=== PATIENT | male | born 1975 | race Caucasian/White ===

== ENCOUNTER 2022-01-24 11:44 | Emergency (ER) | payer BC ==
--- OUTSIDE RECORDS SUMMARY | 2022-01-24 11:48 | XMS REPORT | Continuity of Care Document ---
:1975 Author Organization [facility] t Address [address] [place] [address] Care Team Providers Name Role Phone Nessa SULTANA, Valentino Easley Primary Care Physician YOANA GILLESPIE Attending Clinician Unavailable NANCY TAYLOR Attending Clinician Unavailable Tee SULTANA, Jerman Lisa Attending Clinician MD NANCY TAYLOR Attending Clinician UnavailZARINA Cosby Attending Clinician Unavailable ZARINA REYES Attending Clinician Unavailable Skyler Palafox MD Attending Clinician Zarina Reyes DO Attending Clinician DEISY WOO Attending Clinician Unavailable Doctor Unassigned, [place] Attending Clinician Unavailable Ramez SULTANA, Priscilla G Attending Clinician IZZY REYES Attending Clinician Unavailable Jonn Zamora MD Attending Clinician Cam Nagel MD Attending Clinician Irving Luna MD Attending Clinician Abigail Aparicio DO Attending Clinician Rebecca Epps Attending Clinician Андрей Dimas Attending Clinician ELLIS BLEDSOE Attending Clinician Unavailable [facility] Attending Clinician Unavailable Ellis Artis Attending Clinician NANCY TAYLOR Admitting Clinician Unavailable MD NANCY TAYLOR Admitting Clinician Unavailjason Nagel MD, Cam Oconnor Admitting Clinician Payers Payer Name Policy Type Policy Number Effective Date Expiration Date S eloisa [facility] [place] [id number] 2016 00:00:00 Problems Condition Condition Condition Status Onset Resolution Last Treating Co mments Source Name Details Category Date Date Treatment Clinician Date Pulmonary Pulmonary Disease Active Uni vers embolism embolism 02-01 ity of 00:00: [place] 00 Medical Branch Obesity Obesity Disease Active Univers (BMI (BMI 8 ity of 30-39.9) 30-39.9) 00:00: Medical Branch Deep vein Deep vein Disease Active Uni vers blood clot blood clot 02-01 it y of of right of right 00:00: [place] lower lower 00 Medical extremity extremity Bran ch No known No known Disease Metho di active active st problems problems Hospit a l Allergies, Adverse Reactions, Alerts Allergy Allergy Status Severity Reaction(s) Onset Inactive Treating Comm ents Source Name Type Date Date Clinician Hydrocod Propensi Active Other (See Patient Anastasia sweeney one ty to Comments) [address] adverse 00:00: does not Hospita reaction 00 like how l s to it makes drug him feel. He gets real hot and "feels real bad" Tree Propensi Active Hives Univers Nuts ty to 823 ity of adverse 00:00: [place] reaction 00 Medical s Branch TREE Food Active Hives Univers NUTS 02-01 ity of 00:00: [place] 00 Medical Branch NO KNOWN Drug Active Univers ALLERGIE Class ity of S [facility] Family History Family Member Diagnosis Comments Start Date Stop Date Source Natural father CABG/Stent [facility] Natural father Diabetes [facility] Natural father Hy[facility] Natural mother Bradycardia [facility] Social History Social Habit Start Date Stop Date Quantity Comments Source History of Snuff User [facility] Exposure to Not sure [facility] SARS-CoV-2 Hospital (event) Alcohol intake 2021-07-22 2021-07-22 Current drinker [facility] dist 00:00:00 00:00:00 of alcohol Hospital (finding) Tobacco use and 2021-07-21 2021-07-21 User of smokeless [facility] exposure 00:00:00 00:00:00 tobacco Hospital History [facility] 2020-02-02 2020-02-02 5 University o f Alcohol Frequency 00:00:00 00:00:00 [place] M edical Branch History [facility] 2020-02-02 2020-02-02 1 [place] o f Alcohol Std 00:00:00 00:00:00 [place] Medical Drinks Branch History [facility] 2020-02-02 2020-02-02 99 [place] o f Alcohol Binge 00:00:00 00:00:00 [place] Medic al Branch Sex Ass[birth year] At [birth year] [facility] 00:[facility] Smoking Status Start Date Stop Date Source Never smoked tobacco [facility] Medications Ordered Filled Start Stop Current Ordering Indication Dosage Frequency Signature Comments Components Source Medication Medication Date Date Medication? Clinician (SIG) Name Name esomeprazol Yes 40mg QD Take 40 mg [facility] (NexIUM) 2-[address] 40 MG 13:05: daily Hospita capsule 59 before l breakfast. fluticasone Yes 1{spray Q24H 1 spray by [facility] propionate 2-10 } Each Nare st (FLONASE) 13:05: route Hospita 50 59 daily as l mcg/actuati needed for on nasal rhinitis spray or allergies. montelukast Yes 10mg QD Take 10 mg [facility] (SINGULAIR) 2-[address] 10 mg 13:05: nightly. Hospita tablet 59 l indomethaci Yes 25mg Q.5D Take 25 mg [facility] n (INDOCIN) 2-[address] 25 MG 13:05: (two) Hospita capsule 59 times a l day with meals. aspirin Yes 81mg QD Take 1 [facility] (ECOTRIN) 2-10 tablet (81 st 81 MG 13:05: mg total) Hospita enteric 59 by mouth l coated daily. tablet valsartan-h Yes 1{tbl} QD Take 1 [facility] ydrochlorot 2-[address] hiazide 00:00: mouth Hospita (DIOVAN-HCT 00 daily. l ) 320-25 mg Hold for per tablet sbp less than 110 etodolac 2021- No etodolac Meth asuncion (LODINE) 07-[address] 500 MG 15:10: 00:00 tablet Hospita tablet 54 :00 l amLODIPine 2021- No amlodipine [facility] (NORVASC) 5 07-[address] mg tablet 09:57: 00:00 tablet Hospi ta 45 :00 l amLODIPine Yes 7.5mg QD Take 1.5 Me [facility]odi (NORVASC) 5 - tablets st mg tablet 00:00: (7.5 mg Hospi ta 00 total) by l mouth daily. nitroglycer 2022- No 1 under Me thodi in 07-[address] (NITROSTAT) 00:00: 05:59 as needed Hospita 0.4 MG SL 00 :00 for l tablet angina, may repeat q5mins for up three doses omeprazole 2021- No Method i (PriLOSEC) 07-14 st 40 MG 00:00: 00:00 Hospita capsule 00 :00 l Ozempic 2020-06 Yes .5mg Q7D Inject 0.5 Meth asuncion 0.25 mg or 2-[address] 0.5 mg(2 00:00: the skin Hospi ta mg/1.5 mL) 00 once a l subcutane week. s pen Every Monday valsartan-h 2020-06- No Metho di ydrochlorot 07-25 st hiazide 00:00: 00:00 Hospita (DIOVAN-HCT 00 :00 l ) 320-25 mg per tablet metFORMIN 2020-06 Yes 500mg Q.5D 500 mg 2 Met hodi XR 2- (two) st (GLUCOPHAGE 00:00: times a Hos dori -XR) 500 mg 00 day. l 24 hr tablet metoprolol 2020-06 Yes 100mg QD Take 100 Me thodi succinate 1-[address] XL 00:00: mouth Hospita (TOPROL-XL) 00 nightly. l 100 mg 24 hr tablet furosemide 2020-06 Yes PRN [facility] (LASIX) 20 1-15 st mg tablet 00:00: Hospita 00 l iohexol 0 2020- No 100mL 100 mL, Unive rs (OMNIPAQUE 413 04-13 Intravenou it y of 350 01:45: 01:28 s, ONCE, 1 [place] BULK-100 00 :00 dose, Mon Medica l mL) 09/21/20 at Branch injection 2045, 100 mL Routine allopurinoL 2019-06 Yes 300mg Take 300 U nivers 300 mg 0-12 mg by ity of tablet 00:00: mouth [place] 00 daily. Medical Branch allopurinoL 2019-06 Yes 300mg Take 300 U nivers 300 mg 0-12 mg by ity of tablet 00:00: mouth [place] 00 daily. Medical Branch allopurinoL 2019-06 Yes 300mg Take 300 U nivers 300 mg 0-12 mg by ity of tablet 00:00: mouth [place] 00 daily. Medical Branch allopurinoL 2019-06 Yes 300mg Take 300 U nivers 300 mg 0-12 mg by ity of tablet 00:00: mouth [place] 00 daily. Medical Branch allopurinoL 2019-06 Yes 300mg QD Take 300 M ethodi (ZYLOPRIM) 0-[address] 300 MG 00:00: mouth Hospita tablet 00 daily. l valsartan-h Yes valsartan U nivers ydrochlorot 8-24 160 ity of hiazide 01:42: mg[place]hydroch [place] 160-25 mg 42 lor[place] Medi thomas per tablet de 25 mg Branc h tablet amLODIPine Yes amlodipine U nivers 5 mg tablet 8-24 5 mg ity of 01:42: tablet [place] 42 Medical Branch DM/p-ephed/ Yes Take by Uni vers acetaminoph 8-24 mouth. ity of /doxylam 01:42: [place] (NYQUIL 42 Medical ORAL) Branch [facility] mouth[facility] ity of (METFORMIN 01:42: [place] ORAL) 42 Medical Branch valsartan-h Yes valsartan U nivers ydrochlorot 8-24 160 ity of hiazide 01:42: mg-hydroch [place] 160-25 mg 42 [place] Medi thomas per tablet de 25 mg Branc h tablet amLODIPine 2019-0 Yes amlodipine U nivers 5 mg tablet 8-24 5 mg ity of 01:42: tablet [address] Branch DM/p-ephed/ 2020-0 Yes Take by Uni vers acetaminoph 8-24 mouth. ity of /doxylam 01:42: [place] ([place] [address] Medical ORAL) [place] metformin 2019-0 Yes Take by Unive rs HCl 8-24 mouth. ity of (METFORMIN 01:42: [place] ORAL) Medical Branch valsartan-h 2020-0 Yes valsartan U nivers ydrochlorot 8-24 160 ity of hiazide 01:42: mg-hydroch [place] 160-25 mg 42 [place] Medi thomas per tablet de 25 mg Branc h tablet amLODIPine 2020-0 Yes amlodipine U nivers 5 mg tablet 8-24 5 mg ity of 01:42: tablet [address] Branch DM/p-ephed/ 2020-0 Yes Take by Uni vers acetaminoph 8-24 mouth. ity of /doxylam 01:42: [place] ([address] ORAL) [place] metformin 2019-0 Yes Take by Unive rs HCl 8-24 mouth. ity of (METFORMIN 01:42: [facility]) Medical Branch valsartan-h 2020-0 Yes valsartan U nivers ydrochlorot 8-24 160 ity of hiazide 01:42: mg-hydroch [place] 160-25 mg 42 [place] Medi thomas per tablet de 25 mg Branc h tablet amLODIPine 2020-0 Yes amlodipine U nivers 5 mg tablet 8-24 5 mg ity of 01:42: tablet [address] Branch DM/p-ephed/ 2020-0 Yes Take by Uni vers acetaminoph 8-24 mouth. ity of /doxylam 01:42: [place] ([address] ORAL) [place] metformin 2019-0 Yes Take by Unive rs HCl 8-24 mouth. ity of (METFORMIN 01:42: [place] ORAL) Medical Branch valsartan-h 2020-0 Yes valsartan U nivers ydrochlorot 8-24 160 ity of hiazide 01:42: mg-hydroch [place] 160-25 mg 42 [place] Medi thomas per tablet de 25 mg Branc h tablet amLODIPine 2020-0 Yes amlodipine U nivers 5 mg tablet 8-24 5 mg ity of 01:42: tablet [address] Branch DM/p-ephed/ 2020-0 Yes Take by Uni vers acetaminoph 8-24 mouth. ity of /doxylam 01:42: [place] ([address] ORAL) [place] metformin 2020-0 Yes Take by Unive rs HCl 8-24 mouth. ity of (METFORMIN 01:42: [place] ORAL) Medical Branch valsartan-h 2020-0 Yes valsartan U nivers ydrochlorot 8-24 160 ity of hiazide 01:42: mg-hydroch [place] 160-25 mg 42 [place] Medi thomas per tablet de 25 mg Branc h tablet amLODIPine 2020-0 Yes amlodipine U nivers 5 mg tablet 8-24 5 mg ity of 01:42: tablet [address] Branch DM/p-ephed/ 2020-0 Yes Take by Uni vers acetaminoph 8-24 mouth. ity of /doxylam 01:42: [place] ([address] ORAL) [place] metformin 2019-0 Yes Take by Unive rs HCl 8-24 mouth. ity of (METFORMIN 01:42: [place] ORAL) Medical Branch valsartan-h 2020-0 Yes valsartan U nivers ydrochlorot 8-24 160 ity of hiazide 01:42: mg-hydroch [place] 160-25 mg 42 [place] Medi thomas per tablet de 25 mg Branc h tablet amLODIPine 2020-0 Yes amlodipine U nivers 5 mg tablet 8-24 5 mg ity of 01:42: tablet [address] Branch DM/p-ephed/ 2020-0 Yes Take by Uni vers acetaminoph 8-24 mouth. ity of /doxylam 01:42: [place] ([address] ORAL) [place] metformin 2019-0 Yes Take by Unive rs HCl 8-24 mouth. ity of (METFORMIN 01:42: [place] ORAL) Medical Branch valsartan-h 2020-0 Yes valsartan U nivers ydrochlorot 8-24 160 ity of hiazide 01:42: mg-hydroch [place] 160-25 mg 42 [place] Medi thomas per tablet de 25 mg Branc h tablet amLODIPine 2020-0 Yes amlodipine U nivers 5 mg tablet 8-24 5 mg ity of 01:42: tablet [place] [address] Medical Branch DM/p-ephed/ 2020-0 Yes Take by Uni vers acetaminoph 8-24 mouth. ity of /doxylam 01:42: [place] ([place] [address] Medical ORAL) Branch metformin 2020-0 Yes Take by Unive rs HCl 8-24 mouth. ity of (METFORMIN 01:42: [place] ORAL) Medical Branch valsartan-h 2020-0 Yes valsartan U nivers ydrochlorot 8-24 160 ity of hiazide 01:42: mg-hydroch [place] 160-25 mg 42 [place] Medi thomas per tablet de 25 mg Branc h tablet amLODIPine 2020-0 Yes amlodipine U nivers 5 mg tablet 8-24 5 mg ity of 01:42: tablet [place] [address] Medical Branch DM/p-ephed/ 2020-0 Yes Take by Uni vers acetaminoph 8-24 mouth. ity of /doxylam 01:42: [place] ([place] [address] Medical ORAL) Branch metformin 2019-0 Yes Take by Unive rs HCl 8-24 mouth. ity of (METFORMIN 01:42: [place] ORAL) [address] [place] [address] Branch valsartan-h 2020-0 Yes valsartan U nivers ydrochlorot 8-24 160 ity of hiazide 01:42: mg-hydroch [place] 160-25 mg 42 [place] Medi thomas per tablet de 25 mg Branc h tablet amLODIPine 2020-0 Yes amlodipine U nivers 5 mg tablet 8-24 5 mg ity of 01:42: tablet [address] Branch DM/p-ephed/ 2020-0 Yes Take by Uni vers acetaminoph 8-24 mouth. ity of /doxylam 01:42: [place] ([place] [address] Medical ORAL) Branch metformin 2020-0 Yes Take by Unive rs HCl 8-24 mouth. ity of (METFORMIN 01:42: [place] ORAL) Medical Branch rivaroxaban 2020-0 Yes 15mg 15 mg, Univ ers (XARELTO) 8-24 Oral, BID, ity of tablet 15 01:00: First dose [place] mg 00 (after Medical last Branch modificati on) on 02/02/20 at 2000, Until Discontinu ed, Routine furosemide 2020-0 Yes 10mg 10 mg, Unive rs (LASIX) 02-01 Oral, ity of half tablet 15:00: DAILY, [place] 10 mg 00 First dose Medical on [facility] 02/02/20 at 1000, Until Discontinu ed, Routine rivaroxaban 2019- 2020- No 20mg 20 mg, Uni vers (XARELTO) 02-01 Oral, BID, ity of tablet 20 13:00: 14:59 First dose [place] mg 00 :13 on [facility] 02/02/20 at Branch 0800, Until Discontinu ed, Routine levothyroxi 2019-0 Yes 25ug 25 mcg, Uni vers ne 02-01 Oral, ity of (SYNTHROID) 11:00: QAM-0600, [place] tablet 25 00 First dose Medi thomas mcg on [facility] 02/02/20 at 0600, Until Discontinu ed, Routine iohexol 2019-0 2020- No 120mL 120 mL, Unive rs (OMNIPAQUE 02-01 Intravenou it y of 350 02:45: 02:39 s, ONCE, 1 [place] BULK-100 00 :00 dose, Sat Medica l mL) 02/01/20 at Branch injection 2145, 120 mL Routine sodium 2019-0 Yes 5mL 5 mL, Univers chloride 02-01 Intravenou ity o f (NS) 01:31: s, PRN, [place] injection 5 30 Starting Medi thomas mL [facility] 02/01/20 at 2031, Until Discontinu ed, Routine, IV line flushing furosemide 2019-0 2020- No [id number] 10mg Take 0.5 Univers 20 mg 02-01 tablets by ity of tablet 00:00: 04:59 mouth once [place] 00 :00 daily as Medical needed Branch (Leg swelling) for up to 30 days. furosemide 2020-0 2020- No [id number] 10mg Take 0.5 Univers 20 mg 02-01 tablets by ity of tablet 00:00: 04:59 mouth once [place] 00 :00 daily as Medical needed Branch (Leg swelling) for up to 30 days. furosemide 2020-0 2020- No [id number] 10mg Take 0.5 Univers 20 mg 02-01 tablets by ity of tablet 00:00: 04:59 mouth once [place] 00 :00 daily as Medical needed Branch (Leg swelling) for up to 30 days. furosemide 2019-2019- No [id number] 10mg Take 0.5 Univers 20 mg 02-01 tablets by ity of tablet 00:00: 04:59 mouth once [place] 00 :00 daily as Medical needed Branch (Leg swelling) for up to 30 days. rivaroxaban 2019-2020- No 20mg Take 1 Uni vers (XARELTO) 01-28 tablet by ity of 20 mg 00:00: 05:59 mouth [place] tablet 00 :00 daily for Medical 159 days. Branch Please start after you finish the twice a day dose. Indication s: dvt treatment rivaroxaban 2019-2020- No 20mg Take 1 Uni vers (XARELTO) 01-28 tablet by ity of 20 mg 00:00: 05:59 mouth [place] tablet 00 :00 daily for Medical 159 days. Branch Please start after you finish the twice a day dose. Indication s: dvt treatment rivaroxaban 2019-2020- No 20mg Take 1 Uni vers (XARELTO) 01-28 tablet by ity of 20 mg 00:00: 05:59 mouth [place] tablet 00 :00 daily for Medical 159 days. Branch Please start after you finish the twice a day dose. Indication s: dvt treatment rivaroxaban 2019-2020- No 20mg Take 1 Uni vers (XARELTO) 01-28 tablet by ity of 20 mg 00:00: 05:59 mouth [place] tablet 00 :00 daily for Medical 159 days. Branch Please start after you finish the twice a day dose. Indication s: dvt treatment rivaroxaban 2019-2020- No 20mg Take 1 Uni vers (XARELTO) 01-28 tablet by ity of 20 mg 00:00: 05:59 mouth [place] tablet 00 :00 daily for Medical 159 days. Branch Please start after you finish the twice a day dose. Indication s: dvt treatment rivaroxaban 2019-0 2020- No 20mg Take 1 Uni vers (XARELTO) 01-28 tablet by ity of 20 mg 00:00: 05:59 mouth [place] tablet 00 :00 daily for Medical 159 days. Branch Please start after you finish the twice a day dose. Indication s: dvt treatment rivaroxaban 2019-0 2020- No 20mg Take 1 Uni vers (XARELTO) 01-28 tablet by ity of 20 mg 00:00: 05:59 mouth [place] tablet 00 :00 daily for Medical 159 days. Branch Please start after you finish the twice a day dose. Indication s: dvt treatment rivaroxaban 2020-0 2020- No 20mg Take 1 Uni vers (XARELTO) 01-28 tablet by ity of 20 mg 00:00: 05:59 mouth [place] tablet 00 :00 daily for Medical 159 days. Branch Please start after you finish the twice a day dose. Indication s: dvt treatment rivaroxaban 2020-0 202- No 20mg Take 1 Uni vers (XARELTO) 01-28 tablet by ity of 20 mg 00:00: 05:59 mouth [place] tablet 00 :00 daily for Medical 159 days. Branch Please start after you finish the twice a day dose. Indication s: dvt treatment rivaroxaban 2019- 2020- No 15mg Take 1 Uni vers (XARELTO) 01-28 tablet by ity of 15 mg 00:00: 04:59 mouth 2 [place] tablet 00 :00 (two) Medical times [place] daily for 21 days. Indication s: DVT treatment rivaroxaban 2019-0 2020- No 15mg Take 1 Uni vers (XARELTO) 01-28 tablet by ity of 15 mg 00:00: 04:59 mouth 2 [place] tablet 00 :00 (two) Medical times [place] daily for 21 days. Indication s: DVT treatment rivaroxaban 2019-0 2020- No 15mg Take 1 Uni vers (XARELTO) 01-28 tablet by ity of 15 mg 00:00: 04:59 mouth 2 [place] tablet 00 :00 (two) Medical times [place] daily for 21 days. Indication s: DVT treatment methylpredn 2019- 2020- No 125mg 125 mg, IV Univers isolone sod 12-17 Piggyback, i ty of succ 04:45: 03:59 ONCE, 1 [place] (SOLU-MEDRO 00 :00 dose, Tue Med ical L) 12/17/19 at Branch injection 2345, STAT 125 mg diphenhydrA 2019- 2020- No 25mg 25 mg, Uni vers MINE 12-17 Slow IV ity of (BENADRYL) 04:45: 03:59 Push, [place] injection 00 :00 ONCE, 1 Medical 25 mg dose, Tue Branch 12/17/19 at 2345, STAT iohexol 2020-0 2020- No 120mL 120 mL, Unive rs (OMNIPAQUE 12-17 07-08 Intravenou it y of 350 04:10: 04:10 s, ONCE, 1 [place] BULK-150 00 :00 dose, Tue Medica l mL) 12/17/19 at Branch injection 2330, 120 mL Routine DM/p-ephed/ 2020-0 Yes Take by Uni vers acetaminoph 12-17 mouth. ity of /doxylam 01:28: [place] (NYQUIL 49 Medical ORAL) Branch DM/p-ephed/ 2020-0 Yes Take by Uni vers acetaminoph - mouth. ity of /doxylam 01:28: [place] (NYQUIL 49 Medical ORAL) Branch valsartan-h 2020-0 Yes valsartan U nivers ydrochlorot 12-17 160 ity of hiazide 01:16: mg-hydroch [place] 160-25 mg 02 [place] Medi thomas per tablet de 25 mg Branc h tablet amLODIPine 2020-0 Yes amlodipine U nivers 5 mg tablet 7-08 5 mg ity of 01:16: tablet [address] valsartan-h 2020-0 Yes valsartan U nivers ydrochlorot 12-17 160 ity of hiazide 01:16: mg-hydroch [place] 160-25 mg 02 [place] Medi thomas per tablet de 25 mg Branc h tablet amLODIPine 2020-0 Yes amlodipine U nivers 5 mg tablet 7-08 5 mg ity of 01:16: tablet [place] 02 [facility] Branch valsartan-h 2020-0 Yes valsartan U nivers ydrochlorot 12-14 160 ity of hiazide 18:38: mg-hydroch [place] 160-25 mg 52 [place] Medi thomas per tablet de 25 mg Branc h tablet amLODIPine 2020-0 Yes amlodipine U nivers 5 mg tablet 7-05 5 mg ity of 18:38: tablet [address] valsartan-h 2020-0 Yes valsartan U nivers ydrochlorot 7-05 160 ity of hiazide 18:38: mg-hydroch [place] 160-25 mg 52 [place] Medi thomas per tablet de 25 mg Branc h tablet amLODIPine 2019-0 Yes amlodipine U nivers 5 mg tablet 7-05 5 mg ity of 18:38: tablet [place] [address] Medical Branch ESOMEPRAZOL 2019-0 Yes Univer s E MAGNESIUM 5-20 ity of ORAL 00:00: [place] Medical Branch ESOMEPRAZOL 2019-0 Yes Univer s E MAGNESIUM 5-20 ity of ORAL 00:00: [place] Medical [facility] ESOMEPRAZOL 2019-0 Yes Univer s E MAGNESIUM 5-20 ity of ORAL 00:00: [place] [facility] ESOMEPRAZOL 2019-0 Yes Univer s E MAGNESIUM 5-20 ity of ORAL 00:00: [place] [facility] ESOMEPRAZOL 2019-0 Yes Univer s E MAGNESIUM 5-20 ity of ORAL 00:00: [place] [facility] ESOMEPRAZOL 2019-0 Yes Univer s E MAGNESIUM 5-20 ity of ORAL 00:00: [place] [facility] ESOMEPRAZOL 2019-0 Yes Univer s E MAGNESIUM 5-20 ity of ORAL 00:00: [place] [facility] ESOMEPRAZOL 2019-0 Yes Univer s E MAGNESIUM 5-20 ity of ORAL 00:00: [place] [facility] ESOMEPRAZOL 2019-0 Yes Univer s E MAGNESIUM 5-20 ity of ORAL 00:00: [place] [facility] ESOMEPRAZOL 2019-0 Yes Univer s E MAGNESIUM 5-20 ity of ORAL 00:00: [place] [facility] ESOMEPRAZOL 2019-0 Yes Univer s E MAGNESIUM 5-20 ity of ORAL 00:00: [place] [facility] ESOMEPRAZOL 2019-0 Yes Univer s E MAGNESIUM 5-20 ity of ORAL 00:00: [place] [facility] ESOMEPRAZOL 2019-0 Yes Univer s E MAGNESIUM 5-20 ity of ORAL 00:00: [place] [facility] ESOMEPRAZOL 2019-0 Yes Univer s E MAGNESIUM 5-20 ity of ORAL 00:00: [place] Medical Branch levothyroxi 2019-0 Yes 25ug Take 25 Uni vers ne 25 mcg 4-30 mcg by ity of tablet 00:00: mouth [place] 00 every Medical morning. Branch levothyroxi 2020-0 Yes 25ug Take 25 Uni vers ne 25 mcg 4-30 mcg by ity of tablet 00:00: mouth [place] 00 every Medical morning. Branch levothyroxi 2020-0 Yes 25ug Take 25 Uni vers ne 25 mcg 4-30 mcg by ity of tablet 00:00: mouth [place] 00 every Medical morning. Branch levothyroxi 2020-0 Yes 25ug Take 25 Uni vers ne 25 mcg 4-30 mcg by ity of tablet 00:00: mouth [place] 00 every Medical morning. Branch levothyroxi 2020-0 Yes 25ug Take 25 Uni vers ne 25 mcg 4-30 mcg by ity of tablet 00:00: mouth [place] 00 every Medical morning. Branch levothyroxi 2020-0 Yes 25ug Take 25 Uni vers ne 25 mcg 4-30 mcg by ity of tablet 00:00: mouth [place] 00 every Medical morning. Branch levothyroxi 2020-0 Yes 25ug Take 25 Uni vers ne 25 mcg 4-30 mcg by ity of tablet 00:00: mouth [place] 00 every Medical morning. Branch levothyroxi 2020-0 Yes 25ug Take 25 Uni vers ne 25 mcg 4-30 mcg by ity of tablet 00:00: mouth [place] 00 every Medical morning. Branch levothyroxi 2020-0 Yes 25ug Take 25 Uni vers ne 25 mcg 4-30 mcg by ity of tablet 00:00: mouth [place] 00 every Medical morning. Branch levothyroxi 2020-0 Yes 25ug Take 25 Uni vers ne 25 mcg 4-30 mcg by ity of tablet 00:00: mouth [place] 00 every Medical morning. Branch levothyroxi 2020-0 Yes 25ug Take 25 Uni vers ne 25 mcg 4-30 mcg by ity of tablet 00:00: mouth [place] 00 every Medical morning. Branch levothyroxi 2020-0 Yes 25ug Take 25 Uni vers ne 25 mcg 4-30 mcg by ity of tablet 00:00: mouth [place] 00 every Medical morning. Branch levothyroxi 2020-0 Yes 25ug Take 25 Uni vers ne 25 mcg 4-30 mcg by ity of tablet 00:00: mouth [place] 00 every Medical morning. Branch levothyroxi 2020-0 Yes 25ug Take 25 Uni vers ne 25 mcg 4-30 mcg by ity of tablet 00:00: mouth [place] 00 every Medical morning. Branch levothyroxi Yes 25ug QD Take 25 Met hodi ne 4-[address] (Synthroid) 00:00: mouth Hospi ta 25 mcg 00 every l tablet morning. Immunizations Ordered Filled Immunization Date Status Comments [facility] Immunization Name Name SARS-COV-2 COVID-19 2020-08-11 Completed Unive rsity of PFIZER VACCINE 00:00:00 [facility] SARS-COV-2 COVID-19 2020-08-11 Completed Unive rsity of PFIZER VACCINE 00:00:00 [facility] SARS-COV-2 COVID-19 2020-07-21 Completed Unive rsity of PFIZER VACCINE 00:00:00 [facility] SARS-COV-2 COVID-19 2020-07-21 Completed Unive rsity of PFIZER VACCINE 00:00:00 [facility] Vital Signs Vital Name Observation Time Observation Value Comments Source Systolic blood 2020-09-22 02:00:00 127 mm[Hg] Univer sity of pressure [facility] Diastolic blood 2020-09-22 02:00:00 89 mm[Hg] Unive rsity of [facility] Heart rate 2020-09-22 02:00:00 95 /min [facility] Respiratory rate 2020-09-22 02:00:00 12 /min [facility] Oxygen saturation in 2020-09-22 02:00:00 97 /min [facility] Arterial blood by [facility] Pulse oximetry [place] Body temperature 2020-09-22 00:58:00 37.61 Bere [facility] Body weight 2020-09-22 00:58:00 127.007 [facility] BMI 2020-09-22 00:58:00 35.00 kg/m2 [facility] Systolic blood 2020-03-26 17:43:00 136 mm[Hg] [facility] Diastolic blood 2020-03-26 17:43:00 89 mm[Hg] [facility] Heart rate 2020-03-26 17:43:00 79 /min [facility] Body height 2020-03-26 17:43:00 190.5 cm [facility] Body weight 2020-03-26 17:43:00 136.079 kg [facility] BMI 2020-03-26 17:43:00 37.50 kg/m2 [facility] Oxygen saturation in 2020-03-26 17:43:00 99 /min University of Arterial blood by [facility] Pulse oximetry Branch Systolic blood 2020-03-26 17:43:00 136 mm[Hg] [facility]iver [facility] Diastolic blood 2020-03-26 17:43:00 89 mm[Hg] [facility]ive [facility] Heart rate 2020-03-26 17:43:00 79 /min [facility] Body height 2020-03-26 17:43:00 190.5 cm [facility] Body weight 2020-03-26 17:43:00 136.079 kg [facility] BMI 2020-03-26 17:43:00 37.50 kg/m2 [facility] Oxygen saturation in 2020-03-26 17:43:00 99 /min University of Arterial blood by [facility] Pulse oximetry Branch Systolic blood 2020-02-02 16:47:00 123 mm[Hg] [facility]iver [facility] Diastolic blood 2020-02-02 16:47:00 87 mm[Hg] [facility] Body temperature 2020-02-02 16:47:00 36.33 Bere [facility] Respiratory rate 2020-02-02 16:47:00 18 /min [facility] Oxygen saturation in 2020-02-02 16:47:00 99 /min University of Arterial blood by [facility] Pulse oximetry Branch Heart rate 2020-02-02 13:09:00 73 /min [facility] Body height 2020-02-02 07:25:00 190.5 cm [facility] Body weight 2020-02-02 07:25:00 132.995 kg bedscale [facility] BMI 2020-02-02 07:25:00 36.65 kg/m2 [facility] Systolic blood 2020-01-29 15:24:00 143 mm[Hg] [facility] [place] [facility] Diastolic blood 2020-01-29 15:24:00 97 mm[Hg] [facility]ive [facility] Heart rate 2020-01-29 15:24:00 72 /min [facility] Respiratory rate 2020-01-29 15:24:00 18 /min [facility] [place] [facility] Oxygen saturation in 2020-01-29 15:24:00 98 /min University of Arterial blood by [facility] thomas Pulse oximetry Branch Body temperature 2020-01-29 14:28:00 37.22 Bere [facility] [place] [facility] Body weight 2020-01-29 14:28:00 133.811 kg [facility] [place] [facility] BMI 2020-01-29 14:28:00 36.87 kg/m2 [facility] [place] [facility] Systolic blood 2019-12-18 06:00:00 118 mm[Hg] [facility] [place] [facility] Diastolic blood 2019-12-18 06:00:00 89 mm[Hg] Unive [facility] [place] [facility] Heart rate 2019-12-18 06:00:00 81 /min [facility] [place] [facility] Respiratory rate 2019-12-18 06:00:00 19 /min [facility] [place] [facility] Oxygen saturation in 2019-12-18 06:00:00 92 /min University of Arterial blood by [facility] thomas Pulse oximetry Branch Body temperature 2019-12-18 01:55:47 37.11 Bere [facility] [place] [facility] Body weight 2019-12-18 01:14:00 132.45 kg [facility] [place] [facility] BMI 2019-12-18 01:14:00 36.50 kg/m2 [facility] [place] [facility] Systolic blood 2019-12-15 18:38:00 128 mm[Hg] [facility]iver [facility] [place] [facility] Diastolic blood 2019-12-15 18:38:00 88 mm[Hg] Unive [facility] [place] [facility] Heart rate 2019-12-15 18:38:00 95 /min [facility] [place] [facility] Body temperature 2019-12-15 18:38:00 37.61 Bere [facility] [place] [facility] Respiratory rate 2019-12-15 18:38:00 20 /min [facility] [place] [facility] Body height 2019-12-15 18:38:00 190.5 cm [facility] [place] [facility] Body weight 2019-12-15 18:38:00 131.543 kg [facility] BMI 2019-12-15 18:38:00 36.25 kg/m2 [facility] Oxygen saturation in 2019-12-15 18:38:00 98 /min University Arterial blood by [facility] Pulse oximetry Branch Systolic blood 2021-07-22 17:14:14 132 mm[Hg] [facility] pressure Diastolic blood 2021-07-22 17:14:14 89 mm[Hg] [facility] pressure Heart rate 2021-07-22 17:14:14 72 /min [facility] Body temperature 2021-07-22 17:14:14 35.67 Bere [facility] Respiratory rate 2021-07-22 17:14:14 17 /min [facility] Oxygen saturation in 2021-07-22 17:14:14 99 /min [facility] Arterial blood by Pulse oximetry Body height 2021-07-21 20:34:50 190.5 cm [facility] Body weight 2021-07-21 20:34:50 137.077 kg [facility] BMI 2021-07-21 20:34:50 37.77 kg/m2 [facility] Procedures Procedure Date / Time Performing Clinician Source Performed POC GLUCOSE 2021-07-22 [facility] 17:13:00 Disni CREATINE KINASE, TOTAL 2021-07-22 Freya Stahl [facility] (CPK) 17:09:00 POC GLUCOSE 2021-07-22 [facility] 14:21:00 Disni TROPONIN T 2021-07-22 [facility] 09[facility]22:00 Toi COMPLETE BLD COUNT 2021-07-22 [facility] W/AUTO DIFF 09:22:00 Disni COMPREHENSIVE METABOLIC 2021-07-22 [facility] PANEL 09:22:00 Disni HEMOGLOBIN A1C 2021-07-22 Rolf [facility] 09:22:00 Disni LIPID PANEL 2021-07-22 [facility] 09:22:00 Disni ESTIMATED GFR 2021-07-22 [facility] H ospital 09:22:00 Disni CV LEFT HEART CATH LV 2021-07-22 Jerman Oliveira [facility] GRAM WITH CORS 00:30:00 COVID-19 ANTI-SPIKE IGG 2021-07-21 [facility] ANTIBODY TITER 21:49:00 Disni TROPONIN T 2021-07-21 [facility] 21:49:00 Toi COVID-19 SEROLOGY PATIENT 2021-07-21 [facility] SURVEILLANCE 21:49:00 Disni THYROID STIMULATING 2021-07-21 [facility] HORMONE 21:49:00 Disni COVID-19 QUALITATIVE 2021-07-21 [facility] RT-PCR 18:16:00 Toi PROTHROMBIN TIME WITH INR 2021-07-21 [facility] 18:16:00 Toi PARTIAL THROMBOPLASTIN 2021-07-21 [facility] ([facility]TT[facility] 18:16:00 Toi TYPE AND SCREEN 2021-07-21 [facility] 18:16:00 Toi B NATRIURETIC PEPTIDE 2021-07-21 [facility] 17:56:00 Toi ESTIMATED GFR 2021-07-21 [facility] 17:56:00 Toi HC COMPLETE BLD COUNT 2021-07-21 [facility] W/AUTO DIFF 17:56:00 Toi COMPREHENSIVE METABOLIC 2021-07-21 [facility] PANEL 17:56:00 Toi TROPONIN T 2021-07-21 [facility] 17:56:00 Toi XR CHEST 1 VW 2021-07-21 [facility] 17:55:05 Toi ECG ED PRELIMINARY 2021-07-21 Talia Rouseist Ho spital INTERPRETATION 17:42:45 Toi ECG 12-LEAD 2021-07-21 Magaly Rousefer [facility] 17:33:19 Toi CV TREADMILL STRESS TEST 2021-07-21 Kierra Gillespiematt [facility] 17:06:45 TROPONIN I 2020-09-22 Javy [facility] xa 03:21:[address] [facility] CT CHEST PULMONARY 2020-09-22 Javy [facility] ANGIOGRAM 01:34:29 [facility] XR CHEST 1 VW 2020-09-22 Javy [facility] xas 01:21:32 [facility] NOTICE OF PRIVACY 2020-09-22 Doctor Unassigned, No [facility] PRACTICES 01:20:07 Name Medical Laura LIPASE 2020-09-22 Javy [facility] xa 01:11:00 [facility] TROPONIN I 2020-09-22 Javy [facility] xa 01:11:00 [facility] HEPATIC FUNCTION PANEL 2020-09-22 Javy On license of [facility] ([id number]) (ALB,T.PRO,BILI 01:11:00 [facility] T,BU/BC,ALT,AST,ALK PHOS) BASIC METABOLIC PANEL 2020-09-22 Javy [facility] (NA, K, CL, CO2, GLUCOSE, 01:11:00 Medica l Branch BUN, CREATININE, CA) CBC WITH DIFF 2020-09-22 Javy [facility] 01:11:00 [facility] PROTHROMBIN TIME / INR 2020-09-22 [facility] 01:11:00 [facility] ACTIVATED PARTIAL 2020-09-22 Javy [facility] THRMPLAS MATA 01:11:00 [facility] COVID-19 (ID NOW RAPID 2020-09-22 [facility] TESTING) 01:11:00 [facility] CONSENT/REFUSAL FOR 2020-09-22 Doctor Unassigned, No [facility] DIAGNOSIS AND TREATMENT 00:46:21 [facility] NO SHOW OR MISSED 2020-03-26 Doctor Unassigned, No [facility] APPOINTMENT POLICY 17:35:44 [facility] ACKNOWLEDGEMENT MEDICATION CORRESPONDENCE 2020-02-18 Doctor Unassigned, No [facility] 05:01:00 [facility] AUTHORIZATION FOR RELEASE 2020-02-03 Doctor Unassigned, No [facility] 05:01:00 Name Medical Branch POCT GLUCOSE (AUTOMATED) 2020-02-02 Priscilla Myrick [facility] 10:12:00 Medical Branch UNILATERAL VENOUS DUPLEX 2020-02-02 Jonn Zamora [facility] LOWER EXTREMITY BY 02:57:48 [facility] VASCULAR LAB CT CHEST PULMONARY 2020-02-02 [facility] [place] ANGIOGRAM 02:44:24 [facility] BLOOD CULTURE SCREEN 2020-02-02 Noah [facility] 02:31:00 Medical Branch XR CHEST 1 VW 2020-02-02 Jonn Zamora [facility] 01:48:36 [facility] COVID-19 (ID NOW RAPID 2020-02-02 Noah [facility] TESTING) 01:34:00 Medical Branch LIPASE 2020-02-02 [facility] 01[facility]33[facility]00 [facility] TROPONIN I 2020-02-02 [facility] 01:33[facility]00 [facility] COMP. METABOLIC PANEL 2020-02-02 Jonn Zamora [facility] ([id number]) 01:33:00 Medical Branch CBC WITH DIFF 2020-02-02 Ariannend [facility] 01:33:00 Medical Branch GLYCOSYLATED HEMOGLOBIN 2020-02-02 Juan Parr [facility] (A1C) 01:33:00 Medical Branch PROTHROMBIN TIME / INR 2020-02-02 Jonn Zamora [facility] 01:33:00 Medical Branch ACTIVATED PARTIAL 2020-02-02 Noah Nymaribell [facility] THRMPLAS MATA 01:33:00 Medical Branch N-TERMINAL PRO-BNP 2020-02-02 Priyanka Eliud [facility] 01:33:00 Medical Branch EKG-12 LEAD [facility] 01:32:47 [facility] Branch NOTICE OF PRIVACY 2020-02-02 Doctor Unassigned, No [facility] PRACTICES 01:14:06 Name Medical Branch CONSENT/REFUSAL FOR 2020-02-02 Doctor Unassigned, No [facility] DIAGNOSIS AND TREATMENT 01:13:01 Name Medical Branch NOTICE OF PRIVACY 2020-01-29 Doctor Unassigned, No [facility] PRACTICES 14:14:48 Name Medical Branch CONSENT/REFUSAL FOR 2020-01-29 Doctor Unassigned, No [facility] DIAGNOSIS AND TREATMENT 14:14:[address] CHEST PULMONARY 2019-12-18 Rebecca Vuong [facility] ANGIOGRAM 04:18:16 Medical Branch TROPONIN I 2019-12-18 Rebecca Vuong [facility] xa 03:59:00 Medical Branch XR CHEST 1 VW COVID 2019-12-18 Rebecca Vuong [place] [facility] 02:32:02 Medical Branch LIPASE 2019-12-18 Rebecca Vuong [facility] 01:27:00 Medical Branch TROPONIN I 2019-12-18 Rebecca Vuong [facility] 01:27:00 Medical Branch COMP. METABOLIC PANEL 2019-12-18 Rebecca Vuong [facility] ([id number]) 01:27:00 Medical Branch CBC WITH DIFFERENTIAL 2019-12-18 Rebecca Vuong [facility] 01:27:00 Medical Branch EKG-12 LEAD 2019-12-18 Helen Oreilly [facility] 01:18:23 Medical Branch Plan of Care Planned Activity Planned Date Details Comments Source Future Scheduled 2021-07-22 DIABETES: RETINAL EYE Me [facility] Hospital Test 19:10:17 EXAM [code = DIABETES: RETINAL EYE EXAM] Future Scheduled 2021-07-22 [facility]IC [facility] Hospital Test 19:10:17 [code = DIABETIC FOOT EXAM] Future Scheduled 2021-07-22 [facility]INE [facility]IN [facility] Test 19:10:17 [code = URINE MICROALBUMIN] Future Scheduled 2021-07-[address] [facility] Hospital Test 19:10:17 (procedure) [code = 199441967] Future Scheduled 2021-07-22 INFLUENZA VACCINE [facility] Test 19:10:17 [code = INFLUENZA VACCINE] Encounters Start End Encounter Admission Attending Care Care Encounter Source Date/Time Date/Time Type Type Clinicians Facility Department ID 2021-04-11 Emergency [facility] [id number] Univers 12:24:10 ity [facility] 2021-04-09 Emergency [facility] [id number] Univers 14:00:07 ity [facility] 2021-04-09 Emergency [facility] [id number] Univers 13:17:25 ity [facility] 2021-04-09 Emergency [facility] [id number] Univers 05:23:00 ity [facility] 2021-09-10 2021-09-10 [id number] 00:00:00 00:00:00 YOANA [address] 2021-09-06 2021-09-06 Outpatient [facility] [id number] 00:00:00 00:00:[address] 2021-07-21 2021-07-22 Emergency MURINGAMPUR 1.2.840.1 [id number] [place] 00:00:00 00:00:00 ATH MARCO, 14201.1.1 [address] DIS[address] 3.[address].2.[address] st .3.681900 .8 2021-07-21 2021-07-21 Surgery Oliveira, 1.2.840.1 [id number] Methodi 17:30:00 18:30:[address] Jerman [address]1.[address] 3.430.2.7 Hospit a .3.583391 l .8 2021-07-21 2021-07-21 Office Jose Miguel, 1.2.840.1 [id number] Methodi 08:20:04 11:24:54 Visit Yoana 00291.1.[address] 3.430.2.7 Hospit a .3.706448 l .8 2021-07-21 2021-07-21 Travel 1.2.840.1 1.2.792.709 [id number] Methodi 00:00:00 00:00:[address] 3.430.2.7 0.2.7.3.698 Ho spita .3.696546 084.8 l .8 2021-07-21 2021-07-21 [facility] [id number] 00:00:00 00:00:00 [address]ESAVAN [address] 2020-12-31 2020-12-31 Outpatient R ZARINA REYES [facility] [id number] Univers 13:00:00 13:00:00 ZARINA REYES [id number] i ty of [facility] 2020-09-21 2020-09-21 Emergency [facility] [id number] [id number] Univers 20:01:00 22:54:00 Skyler Pulido 350.1.13.10 i ty [place] [phone] [address] 2020-09-21 2020-09-21 Telephone [facility] [id number] [id number] Univers 00:00:00 00:00:00 Zarina Pulido 350.1.13.10 [place] [phone] Dc dical nal [address] [place] [address] 2020-08-11 2020-08-11 Outpatient [facility] [id number] Univers 16:00:00 16:00:00 [id number] 2020-08-11 2020-08-11 Outpatient R CHILO [facility] [id number] Univers 16:00:00 16:00:00 DEISY [facility] 2020-07-21 2020-07-21 Outpatient [facility] [id number] Univers 13:40:00 13:40:00 [id number] [facility] 2020-07-21 2020-07-21 Outpatient R CHILO [facility] [id number] Univers 13:40:00 13:40:00 DEISY [facility] 2020-03-26 2020-03-26 Office [facility] 1.2.840.114 [id number] Univers 12:34:25 12:54:25 Visit Zarina Pulido 350.1.13.10 i [place] [phone] Dc dical nal [address] [place] [address] 2020-03-26 2020-03-26 Office [facility] 1.2.840.114 [id number] 12:34:25 12:54:25 Visit Tammimanuel Tess 350.1.13.10 [place] 4.2.7.2.686 Professio [phone] [facility] 085 [facility] 2020-03-26 2020-03-26 Outpatient R REYSEZARINA [facility] [id number] Univers 12:40:00 12:40:00 ZARINA REYES [id number] i ty of [facility] 2020-03-26 2020-03-26 Outpatient R [facility] [id number] Univers 12:40:00 12:40:00 ZARINA REYES i ty of [facility] 2020-03-26 2020-03-26 Orders Doctor MARCO 1.2.840.114 [id number] Univers 00:00:00 00:00:00 Only Unassigned, MELE 350.1.13.10 ity of [facility] 4.2.7.2.686 Jimmy as [phone] [facility] 009 Laura 2020-02-27 2020-02-27 Letter Mikaela Myrick 1.2.840.114 [id number] Univers 00:00:00 00:00:00 (Out) Premal G Mele 350.1.13.10 i ty of Hospital 4.2.7.2.686 Jimmy as [phone] [facility] 093 Laura 2020-02-18 2020-02-18 Orders Doctor MARCO 1.2.840.114 [id number] Univers 00:00:00 00:00:00 Only Unassigned, MELE 350.1.13.10 ity of [facility] 4.2.7.2.686 Jimmy as [id number] [facility] 009 Laura 2020-02-04 2020-02-04 Outpatient R IZZY REYES [facility] [id number] Univers 09:00:00 09:00:00 [id number] ity of [facility] 2020-02-03 2020-02-03 Orders Doctor MARCO 1.2.840.114 [id number] Univers 00:00:00 00:00:00 Only Unassigned, MELE 350.1.13.10 ity of [facility] 4.2.7.2.686 Jimmy as [phone] [address] 2020-02-01 2020-02-02 Emergency Jonn Zamora 1.2.840 .114 [id number] Univers 20:17:00 17:00:00 Priscilla Myrick Pako Mele 350.1.13.10 ity [facility] 4.2.7.2.686 [place] [phone] [facility] 093 Laura 2020-02-02 2020-02-02 Telephone MARCO Luna 1.2.080.938 [id number] Univers 00:00:00 00:00:00 Irving MELE 350.1.13.10 it y of [facility] 4.2.7.2.686 Jimmy as [phone] [address] 2020-01-29 2020-01-29 Emergency [facility] 1.2.840.114 [id number] Univers 09:30:00 10:33:00 Abigail Pulido 350.1.13.10 ity of [place] 4.2.7.2.686 [facility] [id number] [address] 2019-12-17 2019-12-18 Emergency [facility] [id number] Univers 20:28:49 01:24:00 Rebecca Pulido 350.1.13.10 i ty of [place] 4.2.7.2.686 [facility] [id number] [address] 2019-12-17 2019-12-17 Telephone Андрей Dmias [facility] 1.2.840.114 [id number] Univers 00:00:00 00:00:00 [facility] 350.1.13.10 i ty of [place] 4.2.7.2.686 Jimmy as Professio [phone] Dc dical [facility] [address] 2019-12-15 2019-12-15 Outpatient Lourdes BLEDSOE [facility] [id number] Univers 14:00:00 14:00:00 ELLIS wang [facility] 2019-12-15 2019-12-15 Urgent Pob1, Acute Care Clinic [facility] 1. 2.840.114 [id number] Univers 13:31:02 13:51:02 [facility] 350.1.13.10 it radhames [place] 4.2.7.2.686 Jimmy as Cyndi [phone] Dc dical nal [address] Branch [address] Results Test Description Test Time Test Comments Results Result Comments Source POC glucose 2021-07-22 17:14:36 Test Item Value Reference Range Interpretation Comme nts POC glucose (test code = 107 mg/dL 65-99 H Ope rator Name: Sri [id number]) LeonelyahDedelmira I D: [id number] able: RN Notified Lab Interpretation (test code = Abnormal 34140-2) [facility] [id number] 01:56:14 Test Item Value Reference Range Interpretation Comments Ventricular rate (test code = 253) Atrial rate (test code = 255) SD interval (test code = 266) QRSD interval (test code = 260) QT interval (test code = 264) QTC interval (test code = 265) P axis 1 (test code = 267) QRS axis 1 (test code = 268) T wave axis (test code = 270) EKG impression (test Normal sinus code = 273) rhythm-Normal [facility]- [facility] [id number] 19:56:00 Test Item Value Reference Range Interpretation Comments ABO grouping (test code = 883-9) A Rh type (test code = 44358-8) POS Antibody screen (gel) (test code = NEG 890-4) [facility] RNA [Presence] in Respiratory specimen by YANICK with probe [id number] 13:45:46 Test Item Value Reference Range Interpretation Comments SARS-CoV-2 (COVID-19) RNA Not detected Not-Detected [Presence] in Respiratory specimen by YANICK with probe detection (test code = 40960-9) Whether patient is employed in a healthcare setting (test code = 55928-1) Whether the patient has symptoms related to condition of interest (test code = 59850-4) Patient was hospitalized because of this condition (test code = 98138-9) Whether the patient was admitted to intensive care unit (ICU) for condition of interest (test code = 95217-8) Whether patient resides in a congregate care setting (test code = 35950-9) TROPONIN [id number] 03:53:55 Test Item Value Reference Range Interpretation Comments TROPONIN I (test 0.001 ng/mL See_Comment [Automated code = [id number]) message] The system which generated this result transmitted reference range : <=0.034. The reference range was not used to interpret this result as normal/abnormal . LORIE (test code = Equal or Less than LORIE) 0.034 ng/ml---Normal ?Note: Cardiac troponin begins to rise 3-4 hours after the onset of ischemia. Repeat in 4-6 hours if the sample was drawn within 3-4 hours of the onset of the symptom and found normal. Between 0.035 and 0.120 ng/mL--- Borderline. Questionable myocardial injury or necrosis ? ?Note: Serial measurement may be necessary to confirm or exclude the diagnosis of myocardial injury or necrosis; Clinical correlation (symptoms, EKGs, imaging studies, and others) required; Repeat in 4-6 hours if clinically indicated. ? Equal or Higher than 0.121 ng/mL---Abnormal. Myocardial Injury or Necrosis Likely ? Biotin has been reported to cause a negative bias, interpret results relative to patient's use of biotin. ? Lab Interpretation Normal (test code = 44047-2) [facility] [id number] 01:49:30 Test Item Value Reference Range Interpretation Comments TROPONIN I (test 0.001 ng/mL See_Comment [Automated code = [id number]) message] The system which generated this result transmitted reference range : <=0.034. The reference range was not used to interpret this result as normal/abnormal . LORIE (test code = Equal or Less than LORIE) 0.034 ng/ml---Normal ?Note: Cardiac troponin begins to rise 3-4 hours after the onset of ischemia. Repeat in 4-6 hours if the sample was drawn within 3-4 hours of the onset of the symptom and found normal. Between 0.035 and 0.120 ng/mL--- Borderline. Questionable myocardial injury or necrosis ? ?Note: Serial measurement may be necessary to confirm or exclude the diagnosis of myocardial injury or necrosis; Clinical correlation (symptoms, EKGs, imaging studies, and others) required; Repeat in 4-6 hours if clinically indicated. ? Equal or Higher than 0.121 ng/mL---Abnormal. Myocardial Injury or Necrosis Likely ? Biotin has been reported to cause a negative bias, interpret results relative to patient's use of biotin. ? Lab Interpretation Normal (test code = 87979-6) [facility] NOW RAPID TESTING)2020-09-22 01:42:07 Test Item Value Reference Range Interpretation Comments SARS-CoV-2 Rapid ID NOW Not Detected Not Detected (test code = 06027-9) LORIE (test code = LORIE) ID NOW COVID-19 Assay is an isothermal nucleic acid amplification test intended for the qualitative detection of nucleic acid from SARS-CoV-2 viral RNA in nasopharyngeal (SILICA FILTER OPERATOR) specimens. It is used under Emergency Use Authorization (EUA) by FDA. The limit of detection (LOD) of the assay is 125 Genome Equivalents/mL. A positive result is indicative of the presence of SARS-CoV-2 RNA. ?Clinical correlation with patient history and other diagnostic information is necessary to determine patient infection status. A negative (Not Detected) result does not preclude SARS-CoV-2 infection. In patients with clinical symptoms and other tests that are consistent with SARS-CoV-2 infection, negative results should be treated as presumptive negative and a new specimen should be tested with alternative PCR molecular test. Invalid: Please collect a new specimen for repeat patient testing if clinically indicated. Lab Interpretation Normal (test code = 52108-3) [facility] (NA, K, CL, CO2, GLUCOSE, BUN, CREATININE, CA)2020-09-22 01:38:28 Test Item Value Reference Range Interpretation Comments NA (test code = 142 mmol/L 135-145 3374508331) K (test code = 3.6 mmol/L 3.5-5.0 1828006572) CL (test code = 101 mmol/L 98-108 7870048514) CO2 TOTAL (test code = 29 mmol/L 23-31 1049580359) AGAP (test code = 2-16 8757872483) BUN (test code = 20 mg/dL 7-23 3978206203) GLUCOSE (test code = 166 mg/dL 70-110 H 3777620379) CREATININE (test code = 1.02 mg/dL 0.60-1.25 4447242436) CALCIUM (test code = 9.7 mg/dL 8.6-10.6 7920338998) eGFR (test code = mL/min/1.73m2 0940394975) LORIE (test code = LORIE) Association of Glomerular Filtration Rate (GFR) and Staging of Kidney Disease* + --+ --+ ------+| GFR (mL/min/1.73 m2) ?| With Kidney Damage ?| ?Without Kidney Damage+ --------+ --------+ +| ?>90 ?| ?Stage one ?| ? Normal ?+ ---+ ---+ -------+| ?60-89 ?| ?Stage two ?| ? Decreased GFR ? + --+ --+ ------+| ?30-59 ?| ?Stage three ?| ? Stage three ? + --+ --+ ------+| ?15-29 ?| ?Stage four ? | ? Stage four ?+ ---+ ---+ -------+| ?<15 (or dialysis) ? ?| ?Stage five ? | ? Stage five ?+ ---+ ---+ -------+ *Each stage assumes the associated GFR level has been in effect for at least three months. ?Stages 1 to 5, with or without kidney disease, indicate chronic kidney disease. Notes: Determination of stages one and two (with eGFR >59mL/min/1.73 m2) requires estimation of kidney damage for at least three months as defined by structural or functional abnormalities of the kidney, manifested by either:Pathological abnormalities or Markers of kidney damage (including abnormalities in the composition of the blood or urine or abnormalities in imaging tests). Lab Interpretation Abnormal (test code = 42294-3) [facility] Panel (ALB, T.PRO, BILI T, BU/BC, ALT, AST, ALK PHOS)2020-09-22 01:38:28 Test Item Value Reference Range Interpretation Comments TOTAL BILI (test code = 9114450548) 0.7 mg/dL 0.1-1.1 BILI UNCON (test code = 5190881807) 0.6 mg/dL 0.1-1.1 BILI CONJ (test code = 3986899887) 0.0 mg/dL 0.0-0.3 T PROTEIN (test code = 3206984779) 7.2 g/dL 6.3-8.2 ALBUMIN (test code = 6648154734) 4.7 g/dL 3.5-5.0 ALK PHOS (test code = 0056997810) 51 U/L 34-122 ALTv (test code = 1742-6) 46 U/L 5-50 AST(SGOT) (test code = 0885590047) 31 U/L 13-40 Lab Interpretation (test code = Normal 63882-5) [facility] HospitalLipase [id number] 01:38:28 Test Item Value Reference Range Interpretation Comments LIPASE (test code = 0987245047) 81 U/L 0-220 Lab Interpretation (test code = Normal 66233-8) [facility] HospitalaPTT2021-04-13 01:37:48 Test Item Value Reference Range Interpretation Comments APTT Patient (test See_Comment [Automat ed code = 3173-2) message] The system which generated this result transmitted reference range : 23 - 38 Seconds . The reference range was not used to interpr et this result as normal/abnormal . LORIE (test code = LORIE) The [facility] patient population mean normal value for aPTT is 30 seconds. Lab Interpretation Normal (test code = 67942-3) [facility] HospitalProthrombin Time (PT) / [id number] 01:35:08 Test Item Value Reference Range Interpretation Comments PROTIME PATIENT (test See_Comment [Auto mated message] code = 5964-2) The system wh ich generated this result transmitted ref erence range: 12.0 - 1 4.7 Seconds. The re ference range was not u sed to interpret this result as normal/abnor mal. INR (test code = 6301-6) Nor mal INR <1.1; Warfarin Therap eutic range 2.0 to 3. 0 or 2.5 to 3.5, dep ending upon the indica tions. Lab Interpretation (test Normal code = 99088-4) [facility] with [id number] 01:19:45 Test Item Value Reference Range Interpretation Comments WBC (test code = See_Comment [Automated 7290-2) message] The sy stem which generated this result transmitted reference range : 4.20 - 10.70 10*3/?L. The reference range was not used to interpret this result as normal/abnormal . RBC (test code = See_Comment [Automated 789-8) message] The sy stem which generated this result transmitted reference range : 4.26 - 5.52 10*6/?L. The reference range was not used to interpret this result as normal/abnormal . HGB (test code = 14.0 g/dL 12.2-16.4 718-7) HCT (test code = 42.2 % 38.4-49.3 4544-3) MCV (test code = 85.1 fL 81.7-95.6 787-2) MCH (test code = 28.2 pg 26.1-32.7 785-6) MCHC (test code = 33.2 g/dL 31.2-35.0 786-4) RDW-SD (test code = 39.4 fL 38.5-51.6 13080-5) RDW-CV (test code = 12.8 % 12.1-15.4 788-0) PLT (test code = See_Comment [Automated 777-3) message] The sy stem which generated this result transmitted reference range : 150 - 328 10*3/ ?L. The reference r luda was not used to interpret this result as normal/abnormal . MPV (test code = 9.4 fL 9.8-13.0 L 45491-8) NRBC/100 WBC (test See_Comment [Automat ed code = 2862399882) message] The system which generated this result transmitted reference range : 0.0 - 10.0 /100 WBCs. The refer ence range was not u sed to interpret th is result as normal/abnormal . NRBC x10^3 (test code <0.01 See_Comment [Auto mated = 0489929482) message] The s ystem which generated this result transmitted reference range : 10*3/?L. The reference range was not used to interpret this result as normal/abnormal . GRAN MAT (NEUT) % 77.8 % (test code = 770-8) IMM GRAN % (test code 0.30 % = 3711363095) LYMPH % (test code = 16.5 % 736-9) MONO % (test code = 4.3 % 5905-5) EOS % (test code = 0.7 % 713-8) BASO % (test code = 0.4 % 706-2) GRAN MAT x10^3(ANC) 7.11 10*3/uL 1.99-6.95 H (test code = 2850492503) IMM GRAN x10^3 (test 0.03 10*3/uL 0.00-0.06 code = 9755387478) LYMPH x10^3 (test code 1.51 10*3/uL 1.09-3.23 = 731-0) MONO x10^3 (test code 0.39 10*3/uL 0.36-1.02 = 742-7) EOS x10^3 (test code = 0.06 10*3/uL 0.06-0.53 711-2) BASO x10^3 (test code 0.04 10*3/uL 0.01-0.09 = 704-7) Lab Interpretation Abnormal (test code = 55859-2) [facility] HospitalN-TERMINAL [id number] 13:53:00 Test Item Value Reference Range Interpretation Comments NT-proBNP (test code 12 pg/mL See_Comment [Autom ated = 1250936245) message] The system which generated this result transmitted reference range : <=125. The reference range was not used to interpret this result as normal/abnormal . LORIE (test code = LORIE) Biotin has been reported to cause a negative bias, interpret results relative to patient's use of biotin. Lab Interpretation Normal (test code = 46163-1) [facility] HospitalPOCT GLUCOSE (AUTOMATED)2020-02-02 10:13:00 Test Item Value Reference Range Interpretation Comments POCT GLU (test code = 9243661541) 113 mg/dL 70-110 H Lab Interpretation (test code = Abnormal 48659-8) [facility] HospitalGLYCOSYLATED HEMOGLOBIN (A1C)2020-02-02 09:25:00 Test Item Value Reference Range Interpretation Comments HGB A1C (test code = 6.2 % 4-6 H 4548-4) LORIE (test code = LORIE) %A1C (NGSP) Interpretation (ADA)4.8-5.6 ? ? Normal or (Non-Diabetic Range)5.7-6.4 ? ? Increased Risk (Pre-Diabetic)>6.5 ?Diabetes Indicated Lab Interpretation Abnormal (test code = 01897-6) [facility] HospitalCT CHEST PULMONARY [id number] 05:07:11 1. ?Acute pulmonary embolism in the bilateral upper and lower segmental andsubsegmental pulmonary arteries. 2. ?Right lower lobe posterior apical segment area of groundglass opacity,may represent resolving infection or developing pulmonary infarction The findings of this study, including acute PE, have been discussed withand acknowledged by JONN Virk, over the phone on 02/01/2020 at10:08 PM with readback. Preliminary Report Dictated by Resident: Jaime Glass ?Gudelia Valdes MD., have reviewed this study and agree withthe above report.PROCEDURE: CT ANGIO CHEST WITH CONTRAST - PE PROTOCOL CLINICAL INDICATION: PE suspected, high pretest prob Pt with recent DVT ofRLE, presenting to the ED anterior bilateral chest pain ? COMPARISON: CT chest PE protocol 12/17/2019. TECHNIQUE: ?Helical CT was performed and reconstructed at 1.0 mm slicethickness from lung base to apices after the administration of 120 mLOmnipaque-350 intravenous contrast. Display field of view: 40 cm. FINDINGS: PULMONARY ARTERIES:Enhancement is adequate, bilateral filling defects within the right main,right and left upper and lower lobe segmental and subsegmental pulmonaryarteries, consistent with acute pulmonary embolism. CHEST:Lower neck/thyroid: Unremarkable. Lungs: Right lower lobe posterior apical segment area of groundglassopacity, may represent resolving infection or pulmonary infarction. Leftlingular atelectasis. Bibasilar dependent atelectatic changes. Central airway: Unremarkable. Pleura: No pleural effusion, thickening or pneumothorax. Thoracic aorta and great vessels: Normal in diameter. Heart and pericardium: No detectable coronary arterial calcification.Unremarkable cardiac morphology and pericardium. Lymph nodes: No enlarged thoracic lymph nodes. Mediastinum: Patulous distal esophagus. Thoracic spine and chest wall: Unremarkable, with normal thoracic vertebralbody heights. Other Lines/Tubes/Devices/Hardware: None Visualized upper abdomen: Prior cholecystectomy. [facility], Radiant Results Inft User - 02/02/2020 12:08 AM CDTPROCEDURE: CT ANGIO CHEST WITH CONTRAST - PE PROTOCOLCLINICAL INDICATION: PE suspected, high pretest prob Pt with recent DVT ofRLE, presenting to the ED anterior bilateral chest pain COMPARISON: CT chest PE protocol 12/17/2019.TECHNIQUE: Helical CT was performed and reconstructed at 1.0 mm slicethickness from lung base to apices after the administration of 120 mLOmnipaque-350 intravenous contrast. Display field ofview: 40 cm.FINDINGS:PULMONARY ARTERIES:Enhancement is adequate, bilateral filling defects within the right main,right and left upper and lower lobe segmental and subsegmental pulmonaryarteries, consistent with acute pulmonary embolism.CHEST:Lower neck/thyroid: Unremarkable.Lungs: Right lower lobe post erior apical segment area of groundglassopacity, may represent resolving infection or pulmonary infarction. Leftlingular atelectasis. Bibasilar dependent atelectatic changes.Central airway: Unremarkable.Pleura: No pleural effusion, thickening or pneumothorax.Thoracic aorta and great vessels: Normal in diameter.Heart and pericardium: No detectable coronary arterial calcification.Unremarkable cardiac morphology and pericardium.Lymph nodes: No enlarged thoracic lymph nodes.Mediastinum: Patulous distal esophagus.Thoracic spine and chest wall: Unremarkable, with normal thoracic vertebralbody heights.Other Lines/Tubes/Devices/Hardware: NoneVisualized upper abdomen: Prior cholecystectomy. IMPRESSION1. Acute pulmonary embolism in the bilateral upper and lower segmental andsubsegmental pulmonary arteries.2. Right lower lobe posterior apical segment area of groundglass opacity,may represent resolving infection or developing pulmonary infarction The findings of this study, including acute PE, have been discussed withand acknowledged by JONN Virk, over the phone on 02/01/2020 at10:08 PM with readback.Preliminary Report Dictated by Resident: Jaime Lee MD., have reviewed this study and agree withthe above report.[facility] (ID NOW RAPID TESTING)2020-02-02 02:22:00 Test Item Value Reference Range Interpretation Comments SARS-CoV-2 Rapid ID NOW Not Detected Not Detected (test code = 83757-8) LORIE (test code = LORIE) ID NOW COVID-19 Assay is an isothermal nucleic acid amplification test intended for the qualitative detection of nucleic acid from SARS-CoV-2 viral RNA in nasopharyngeal (SILICA FILTER OPERATOR) specimens. It is used under Emergency Use Authorization (EUA) by FDA. The limit of detection (LOD) of the assay is 125 Genome Equivalents/mL. A positive result is indicative of the presence of SARS-CoV-2 RNA. ?Clinical correlation with patient history and other diagnostic information is necessary to determine patient infection status. A negative (Not Detected) result does not preclude SARS-CoV-2 infection. In patients with clinical symptoms and other tests that are consistent with SARS-CoV-2 infection, negative results should be treated as presumptive negative and a new specimen should be tested with alternative PCR molecular test. Invalid: Please collect a new specimen for repeat patient testing if clinically indicated. Lab Interpretation Normal (test code = 48888-0) [facility] HospitalTROPONIN [id number] 02:21:00 Test Item Value Reference Range Interpretation Comments TROPONIN I (test <0.012 See_Comment [Automated code = 2599665526) message] The system which generated this result transmitted reference range : <=0.034 ng/mL. The reference range was not used to interpr et this result as normal/abnormal . LORIE (test code = Equal or Less than LORIE) 0.034 ng/ml---Normal ?Note: Cardiac troponin begins to rise 3-4 hours after the onset of ischemia. Repeat in 4-6 hours if the sample was drawn within 3-4 hours of the onset of the symptom and found normal. Between 0.035 and 0.120 ng/mL--- Borderline. Questionable myocardial injury or necrosis ? ?Note: Serial measurement may be necessary to confirm or exclude the diagnosis of myocardial injury or necrosis; Clinical correlation (symptoms, EKGs, imaging studies, and others) required; Repeat in 4-6 hours if clinically indicated. ? Equal or Higher than 0.121 ng/mL---Abnormal. Myocardial Injury or Necrosis Likely ? Biotin has been reported to cause a negative bias, interpret results relative to patient's use of biotin. ? Lab Interpretation Normal (test code = 01926-5) [facility] HospitalCOM. METABOLIC PANEL (87598)2020-02-02 01:59:00 Test Item Value Reference Range Interpretation Comments NA (test code = 140 mmol/L 135-145 3563660051) K (test code = 3.6 mmol/L 3.5-5 4831368160) CL (test code = 104 mmol/L 98-108 2255926325) CO2 TOTAL (test code = 27 mmol/L 23-31 7509359882) AGAP (test code = 2-16 3137295585) BUN (test code = 21 mg/dL 7-23 2609900888) GLUCOSE (test code = 177 mg/dL 70-110 H 0108717514) CREATININE (test code = 0.84 mg/dL 0.6-1.25 3873788876) TOTAL BILI (test code = 0.5 mg/dL 0.1-1.7 5234686106) CALCIUM (test code = 9.8 mg/dL 8.6-10.6 9595547607) T PROTEIN (test code = 7.5 g/dL 6.3-8.2 5722452622) ALBUMIN (test code = 4.7 g/dL 3.5-5 4679610619) ALK PHOS (test code = 54 U/L 34-122 1100121503) ALTv (test code = 60 U/L 5-50 H 1742-6) AST(SGOT) (test code = 41 U/L 13-40 H 5448483610) eGFR Calculation mL/min/1.73m2 (Non-) (test code = 6913811571) eGFR Calculation mL/min/1.73m2 () (test code = 0654646619) LORIE (test code = LORIE) Association of Glomerular Filtration Rate (GFR) and Staging of Kidney Disease* + --+ --+ ------+| GFR (mL/min/1.73 m2) ?| With Kidney Damage ?| ?Without Kidney Damage+ --------+ --------+ +| ?>90 ?| ?Stage one ?| ? Normal ?+ ---+ ---+ -------+| ?60-89 ?| ?Stage two ?| ? Decreased GFR ? + --+ --+ ------+| ?30-59 ?| ?Stage three ?| ? Stage three ? + --+ --+ ------+| ?15-29 ?| ?Stage four ? | ? Stage four ?+ ---+ ---+ -------+| ?<15 (or dialysis) ? ?| ?Stage five ? | ? Stage five ?+ ---+ ---+ -------+ *Each stage assumes the associated GFR level has been in effect for at least three months. ?Stages 1 to 5, with or without kidney disease, indicate chronic kidney disease. Notes: Determination of stages one and two (with eGFR >59mL/min/1.73 m2) requires estimation of kidney damage for at least three months as defined by structural or functional abnormalities of the kidney, manifested by either:Pathological abnormalities or Markers of kidney damage (including abnormalities in the composition of the blood or urine or abnormalities in imaging tests). Lab Interpretation Abnormal (test code = 74933-6) [facility] HospitalaPTT2020-08-23 01:58:00 Test Item Value Reference Range Interpretation Comments APTT Patient (test See_Comment [Automat ed code = 3173-2) message] The system which generated this result transmitted reference range : 23 - 38 Seconds . The reference range was not used to interpr et this result as normal/abnormal . LORIE (test code = LORIE) The [facility] patient population mean normal value for aPTT is 30 seconds. Lab Interpretation Normal (test code = 35726-5) [facility] HospitalLIPASE, [id number] 01:58:00 Test Item Value Reference Range Interpretation Comments LIPASE (test code = 3004656699) 73 U/L 0-220 Lab Interpretation (test code = Normal 56385-5) [facility] HospitalPROTHROMBIN TIME / [id number] 01:55:00 Test Item Value Reference Range Interpretation Comments PROTIME PATIENT (test See_Comment H [Auto mated message] code = 5964-2) The system wh ich generated this result transmitted ref erence range: 12.0 - 1 4.7 Seconds. The reference range was not used to int erpret this result as normal/abnormal . INR (test code = 6301-6) Nor mal INR <1.1; Warfarin Therap eutic range 2.0 to 3. 0 or 2.5 to 3.5, dep ending upon the indica tions. Lab Interpretation (test Abnormal code = 01624-5) [facility] HospitalXR CHEST 1 [id number] 01:51:51 No acute intrathoracic abnormality.PROCEDURE: XR CHEST 1 VW CLINICAL INDICATION: chest pain COMPARISON: None FINDINGS: The lungs are clear. No pleural effusion or pneumothorax is seen. The cardiomediastinal silhouette is normal. No acute bony abnormality. [facility], Radiant Results Inft User - 02/01/2020 8:53 PM CDTPROCEDURE: XR CHEST 1 VWCLINICAL INDICATION: chest pain COMPARISON: NoneFINDINGS:The lungs are clear. No pleural effusion or pneumothorax is seen. The cardiomediastinal silhouette is normal. No acute bony abnormality.IMPRESSIONNo acute intrathoracic abnormality.[facility] HospitalCB WITH [id number] 01:43:00 Test Item Value Reference Range Interpretation Comments WBC (test code = See_Comment [Automated 6190-2) message] The sy stem which generated this result transmitted reference range : 4.20 - 10.70 10*3/?L. The reference range was not used to interpret this result as normal/abnormal . RBC (test code = See_Comment [Automated 139-8) message] The sy stem which generated this result transmitted reference range : 4.26 - 5.52 10*6/?L. The reference range was not used to interpret this result as normal/abnormal . HGB (test code = 13.0 g/dL 12.2-16.4 718-7) HCT (test code = 38.4 % 38.4-49.3 4544-3) MCV (test code = 85.0 fL 81.7-95.6 787-2) MCH (test code = 28.8 pg 26.1-32.7 785-6) MCHC (test code = 33.9 g/dL 31.2-35 786-4) RDW-SD (test code = 40.0 fL 38.5-51.6 70513-6) RDW-CV (test code = 13.0 % 12.1-15.4 788-0) PLT (test code = See_Comment [Automated 777-3) message] The sy stem which generated this result transmitted reference range : 150 - 328 10*3/ ?L. The reference r luda was not used to interpret this result as normal/abnormal . MPV (test code = 9.5 fL 9.8-13 L 96071-2) NRBC/100 WBC (test See_Comment [Automat ed code = 9133783454) message] The system which generated this result transmitted reference range : 0.0 - 10.0 /100 WBCs. The refer ence range was not u sed to interpret th is result as normal/abnormal . NRBC x10^3 (test code <0.01 See_Comment [Auto mated = 2563093499) message] The s ystem which generated this result transmitted reference range : 10*3/?L. The reference range was not used to interpret this result as normal/abnormal . GRAN MAT (NEUT) % 71.4 % (test code = 770-8) IMM GRAN % (test code 0.30 % = 7859348236) LYMPH % (test code = 21.0 % 736-9) MONO % (test code = 4.3 % 5905-5) EOS % (test code = 2.7 % 713-8) BASO % (test code = 0.3 % 706-2) GRAN MAT x10^3(ANC) 6.56 10*3/uL 1.99-6.95 (test code = 0389916001) IMM GRAN x10^3 (test 0.03 10*3/uL 0-0.06 code = 7439362999) LYMPH x10^3 (test code 1.93 10*3/uL 1.09-3.23 = 731-0) MONO x10^3 (test code 0.40 10*3/uL 0.36-1.02 = 742-7) EOS x10^3 (test code = 0.25 10*3/uL 0.06-0.53 711-2) BASO x10^3 (test code 0.03 10*3/uL 0.01-0.09 = 704-7) Lab Interpretation Abnormal (test code = 45904-8) [facility] HospitalTROPONIN [id number] 05:24:00 Test Item Value Reference Range Interpretation Comments TROPONIN I (test <0.012 See_Comment [Automated code = 9770526322) message] The system which generated this result transmitted reference range : <=0.034 ng/mL. The reference range was not used to interpr et this result as normal/abnormal . LORIE (test code = Equal or Less than LORIE) 0.034 ng/ml---Normal ?Note: Cardiac troponin begins to rise 3-4 hours after the onset of ischemia. Repeat in 4-6 hours if the sample was drawn within 3-4 hours of the onset of the symptom and found normal. Between 0.035 and 0.120 ng/mL--- Borderline. Questionable myocardial injury or necrosis ? ?Note: Serial measurement may be necessary to confirm or exclude the diagnosis of myocardial injury or necrosis; Clinical correlation (symptoms, EKGs, imaging studies, and others) required; Repeat in 4-6 hours if clinically indicated. ? Equal or Higher than 0.121 ng/mL---Abnormal. Myocardial Injury or Necrosis Likely ? Biotin has been reported to cause a negative bias, interpret results relative to patient's use of biotin. ? Lab Interpretation Normal (test code = 95133-3) [facility] HospitalCT CHEST PULMONARY [id number] 04:33:08 1. ?Bilateral peripherally located ground glass opacities consistent withpatient's history of COVID19. 2. ?No acute pulmonary embolism. 3. ?Splenomegaly and gynecomastia. Preliminary Report Dictated by Resident: Dayne Dumont ?MD. Cheikh, have reviewed this study and agree with theabove report.PROCEDURE: CT ANGIO CHEST WITH CONTRAST - PE PROTOCOL CLINICAL INDICATION: PE suspected, high pretest prob ? COMPARISON: ?None. TECHNIQUE: ?Helical CT was performed and reconstructed at 1.25 mm slicethickness from lung bases to apices using 120 mL Omnipaque intr avenouscontrast, without complication. ? Axial MIPS and coronal/sagittal MPRS werereconstructed. ? (DFOV = 40 cm) FINDINGS: PULMONARY ARTERIES: Enhancement is adequate and there is no acute or chronic pulmonaryembolism. CHEST: Lower neck/thyroid: Unremarkable. Lungs: Left upper and lower lobe base atelectasis. Ground glass opacitiesare seen in the peripheral aspects of the lower lobes as well as theinferior aspect of the right upper lobe. Central airway: Unremarkable. Pleura: No pleural effusion, thickening or pneumothorax. Thoracic aorta and great vessels: ?Normal in diameter. Heart and pericardium: No detectable coronary arterial calcification.Unremarkable cardiac morphology and pericardium. Lymph nodes: No enlarged thoracic lymph nodes. Mediastinum: Small sliding hiatal hernia. Thoracic spine and chest wall: The vertebral bodies are normal in heightand alignment. No suspicious bony lesion is identified. No acute fractureor dislocations are seen. Mild bilateral gynecomastia. Other Lines/Tubes/Devices/Hardware: None Visualized upper abdomen: Enlarged spleen at 16.5 cm. Prior cholecystomy. [facility], Radiant Results Inft User - 12/17/2019 11:34 PM CDTPROCEDURE: CT ANGIO CHEST WITH CONTRAST - PE PROTOCOLCLINICAL INDICATION: PE suspected, high pretest prob COMPARISON: None.TECHNIQUE: Helical CT was performed and reconstructed at 1.25 mm slicethickness from lung bases to apices using 120 mL Omnipaque intravenouscontrast, without complication. Axial MIPS and coronal/sagittal MPRS werereconstructed. (DFOV = 40 cm)FINDINGS:PULMONARY ARTERIES: Enhancement is adequate and there is no acute or chronic pulmonaryembolism.CHEST: Lower neck/thyroid: Unremarkable.Lungs: Leftupper and lower lobe base atelectasis. Ground glass opacitiesare seen in the peripheral aspects of the lower lobes as well as theinferior aspect of the right upper lobe. Central airway: Unremarkable.Pleura: No pleural effusion, thickening or pneumothorax.Thoracic aorta and great vessels: Normal in diameter.Heart and pericardium: No detectable coronary arterial calcification.Unremarkable cardiac morphology and pericardium.Lymph nodes: No enlarged thoracic lymph nodes.Mediastinum: Small sliding hiatalhernia.Thoracic spine and chest wall: The vertebral bodies are normal in heightand alignment. No suspicious bony lesion is identified. No acute fractureor dislocations are seen. Mild bilateral gynecomastia.Other Lines/Tubes/Devices/Hardware: NoneVisualized upper abdomen: Enlarged spleen at 16.5 cm. Prior cholecystomy. IMPRESSION1. Bilateral peripherally located ground glass opacities consistent withpatient's history of COVID 19.2. No acute pulmonary embolism.3. Splenomegaly and gynecomastia. Preliminary Report Dictated by Resident: Dayne Loyola MD., have reviewed this study and agree with theabove report.[facility] 2019-12-18 02:46:20 Left basilar streaky opacities most consistent with atelectasis althoughCOVID cannot be excluded. Preliminary Report Dictated by Resident: Dayne Dumont MD., have reviewed this study and agree with theabove report.EXAM: XR CHEST 1 VW COVID HISTORY: chest pain COMPARISON: None FINDINGS: Left basilar streaky opacities. The lungs otherwise clear. No pneumothoraxor pleural effusion. The cardiomediastinal silhouette is normal in size. No acute osseous abnormalities. [facility], Radiant Results Inft User - 12/17/2019 9:47 PM CDTEXAM: XR CHEST 1 VW COVIDHISTORY: chest pain COMPARISON: NoneFINDINGS:Left basilar streaky opacities. The lungs otherwise clear. No pneumothoraxor pleural effusion. The cardiomediastinal silhouette is normal in size. No acute osseous abnormalities.IMPRESSIONLeft basilar streaky opacities most consistent with atelectasis althoughCOVID cannot be excluded.Preliminary Report Dictated by Resident: Dayne Loyola MD., have reviewed this study and agree with theabove report.[id number] 02:14[facility]00 Test Item Value Reference Range Interpretation Comments TROPONIN I (test <0.012 See_Comment [Automated code = 1617824809) message] The system which generated this result transmitted reference range : <=0.034 ng/mL. The reference range was not used to interpr et this result as normal/abnormal . LORIE (test code = Equal or Less than LORIE) 0.034 ng/ml---Normal ?Note: Cardiac troponin begins to rise 3-4 hours after the onset of ischemia. Repeat in 4-6 hours if the sample was drawn within 3-4 hours of the onset of the symptom and found normal. Between 0.035 and 0.120 ng/mL--- Borderline. Questionable myocardial injury or necrosis ? ?Note: Serial measurement may be necessary to confirm or exclude the diagnosis of myocardial injury or necrosis; Clinical correlation (symptoms, EKGs, imaging studies, and others) required; Repeat in 4-6 hours if clinically indicated. ? Equal or Higher than 0.121 ng/mL---Abnormal. Myocardial Injury or Necrosis Likely ? Biotin has been reported to cause a negative bias, interpret results relative to patient's use of biotin. ? Lab Interpretation Normal (test code = 86884-4) [facility]. METABOLIC PANEL ([id number])2019-12-18 01:56:00 Test Item Value Reference Range Interpretation Comments NA (test code = 142 mmol/L 135-145 1091146601) K (test code = 3.3 mmol/L 3.5-5 L 7034765797) CL (test code = 105 mmol/L 98-108 6104583857) CO2 TOTAL (test code = 27 mmol/L 23-31 4219418134) AGAP (test code = 2-16 9418286881) BUN (test code = 18 mg/dL 7-23 7970296877) GLUCOSE (test code = 139 mg/dL 70-110 H 0938433365) CREATININE (test code = 0.80 mg/dL 0.6-1.25 5955512378) TOTAL BILI (test code = 1.0 mg/dL 0.1-1.6 8464828674) CALCIUM (test code = 9.8 mg/dL 8.6-10.6 6335255471) T PROTEIN (test code = 8.2 g/dL 6.3-8.2 6714283438) ALBUMIN (test code = 4.9 g/dL 3.5-5 1917859580) ALK PHOS (test code = 71 U/L 34-122 7981707612) ALTv (test code = 92 U/L 5-50 H 1742-6) AST(SGOT) (test code = 87 U/L 13-40 H 0594462510) eGFR Calculation mL/min/1.73m2 (Non-) (test code = 9807764457) eGFR Calculation mL/min/1.73m2 () (test code = 6340603723) LORIE (test code = LORIE) Association of Glomerular Filtration Rate (GFR) and Staging of Kidney Disease* + --+ --+ ------+| GFR (mL/min/1.73 m2) ?| With Kidney Damage ?| ?Without Kidney Damage+ --------+ --------+ +| ?>90 ?| ?Stage one ?| ? Normal ?+ ---+ ---+ -------+| ?60-89 ?| ?Stage two ?| ? Decreased GFR ? + --+ --+ ------+| ?30-59 ?| ?Stage three ?| ? Stage three ? + --+ --+ ------+| ?15-29 ?| ?Stage four ? | ? Stage four ?+ ---+ ---+ -------+| ?<15 (or dialysis) ? ?| ?Stage five ? | ? Stage five ?+ ---+ ---+ -------+ *Each stage assumes the associated GFR level has been in effect for at least three months. ?Stages 1 to 5, with or without kidney disease, indicate chronic kidney disease. Notes: Determination of stages one and two (with eGFR >59mL/min/1.73 m2) requires estimation of kidney damage for at least three months as defined by structural or functional abnormalities of the kidney, manifested by either:Pathological abnormalities or Markers of kidney damage (including abnormalities in the composition of the blood or urine or abnormalities in imaging tests). Lab Interpretation Abnormal (test code = 38834-7) [facility]2020-[facility] 01:56:00 Test Item Value Reference Range Interpretation Comments LIPASE (test code = 7608635936) 641 U/L 0-220 H Lab Interpretation (test code = Abnormal 40491-2) [facility] Hospital[facility] WITH [id number] 01:41:00 Test Item Value Reference Range Interpretation Comments WBC (test code = See_Comment L [Automated 1490-2) message] The sy stem which generated this result transmitted reference range : 4.20 - 10.70 10*3/?L. The reference range was not used to interpret this result as normal/abnormal . RBC (test code = See_Comment [Automated 810-8) message] The sy stem which generated this result transmitted reference range : 4.26 - 5.52 10*6/?L. The reference range was not used to interpret this result as normal/abnormal . HGB (test code = 15.8 g/dL 12.2-16.4 718-7) HCT (test code = 45.6 % 38.4-49.3 4544-3) MCV (test code = 82.6 fL 81.7-95.6 787-2) MCH (test code = 28.6 pg 26.1-32.7 785-6) MCHC (test code = 34.6 g/dL 31.2-35 786-4) RDW-SD (test code = 39.1 fL 38.5-51.6 45942-9) RDW-CV (test code = 13.2 % 12.1-15.4 788-0) PLT (test code = See_Comment [Automated 777-3) message] The sy stem which generated this result transmitted reference range : 150 - 328 10*3/ ?L. The reference r luda was not used to interpret this result as normal/abnormal . MPV (test code = 10.1 fL 9.8-13 72100-6) NRBC/100 WBC (test See_Comment [Automat ed code = 1435467857) message] The system which generated this result transmitted reference range : 0.0 - 10.0 /100 WBCs. The refer ence range was not u sed to interpret th is result as normal/abnormal . NRBC x10^3 (test code <0.01 See_Comment [Auto mated = 0448828969) message] The s ystem which generated this result transmitted reference range : 10*3/?L. The reference range was not used to interpret this result as normal/abnormal . GRAN MAT (NEUT) % 52.0 % (test code = 770-8) IMM GRAN % (test code 0.30 % = 2240254429) LYMPH % (test code = 38.5 % 736-9) MONO % (test code = 6.6 % 5905-5) EOS % (test code = 2.3 % 713-8) BASO % (test code = 0.3 % 706-2) GRAN MAT x10^3(ANC) 2.06 10*3/uL 1.99-6.95 (test code = 8899439766) IMM GRAN x10^3 (test <0.03 0-0.06 code = 1308015850) LYMPH x10^3 (test code 1.52 10*3/uL 1.09-3.23 = 731-0) MONO x10^3 (test code 0.26 10*3/uL 0.36-1.02 L = 742-7) EOS x10^3 (test code = 0.09 10*3/uL 0.06-0.53 711-2) BASO x10^3 (test code <0.03 0.01-0.09 = 704-7) Lab Interpretation Abnormal (test code = 75361-9) [facility] HospitalPLATELET [id number] 11:06:00 Test Item Value Reference Range Interpretation Comments PLATELET COUNT (BEAKER) (test 242 K/CU MM 150-450 code = 756) PLATELET [id number] 11:02:00 Test Item Value Reference Range Interpretation Comments PLATELET COUNT (BEAKER) (test 200 K/CU MM 150-450 code = 756)
[2022-01-24 12:51] LABS: Absolute Lymphocytes (CBC) 1.4 K/uL (0.7-4.9); Hematocrit 43.5 % (39.6-49.0); Lymphocytes % 19.5 % (15.3-44.8); MCV 84.3 fL (80-100); MPV 7.5 fL (7.6-11.3); RBC Red Blood Cell Count 5.16 M/uL (4.33-5.43)
[2022-01-24 13:06] LABS: Potassium 3.4 mmol/L (3.5-5.1); Troponin High Sensitivity 3.2 pg/mL (<58.9)
--- NOTE | 2022-01-24 13:13 | RAD REPORT ---
EXAM DESCRIPTION: US - Extremity Venous Uni Ltd - 01/24/2022 12:53 pm CLINICAL HISTORY: Pain Leg swelling and edema. COMPARISON: No comparisons FINDINGS: Right lower extremity venous system was interrogated with Doppler technique. Echogenic thr ombus is seen in the popliteal vein. No additional DVT. IMPRESSION: Positive for right popliteal DVT.
--- NOTE | 2022-01-24 14:03 | RAD REPORT ---
EXAM DESCRIPTION: CT - Chest For Pe Angio - 01/24/2022 1:37 pm CLINICAL HISTORY: Shortness of breath COMPARISON: None. TECHNIQUE: Dynamically enhanced axial 3 mm thick images of the chest were obtained during administra tion of <100> mL Isovue 370 IV contrast. Coronal and oblique reconstruction images were generated and reviewed. Exam utilizes a protocol for optimal evaluation of pulmonary arterial tree. Maximum intensity projections 3D imaging was utilized All CT scans are performed using dose optimization technique as appropriate and may include automated exposure control or mA/KV adjustment according to patient size. FINDINGS: A pulmonary embolus is not seen. A thoracic aortic aneurysm is not noted. A pleural effusion is not seen. A pericardial effusion is not seen. Mild patchy right lower lobe opacity IMPRESSION: Negative for a pulmonary embolism. Mild patchy right lower lobe opacity may indicate pneumonitis
--- NOTE | 2022-01-24 14:28 | RAD REPORT ---
EXAM DESCRIPTION: [facility] Single View01/24/2022 1:28 pm CLINICAL HISTORY: Shortness of breath COMPARISON: January 24, 2022 FINDINGS: Mild right lower lobe opacity better seen on CT chest same date. The remainder lungs appear clear of acute infiltrate. The heart is normal size IMPRESSION: Mild right lower lobe opacity may represent mild pneumonitis
--- NOTE | 2022-01-24 14:52 | ER ---
Nurse's Notes [facility] Name: Leonid Polk Age: 46 yrs Sex: Male : 1975 Arrival Date: 01/24/2022 Time: 11:45 Bed 23 Private MD: Diagnosis: Acute embolism and thrombosis of other specified deep vein of right lower extremity;Weakness Presentation: 01/24 11:55 Chief complaint: Patient states: BP 90/65 and HR 103 this morning, started new BP ph medication today, c/o fatigue, dizziness, sweating. Also reports swelling to R ankle, states, " I'm afraid I may have another blood clot.". Coronavirus screen: Vaccine status: Patient reports receiving the 2nd dose of the covid vaccine. Ebola Screen: No symptoms or risks identified at this time. Initial Sepsis Screen: Does the patient meet any 2 criteria? No. Patient's initial sepsis screen is negative. Does the patient have a suspected source of infection? No. Patient's initial sepsis screen is negative. Risk Assessment: Do you want to hurt yourself or someone else? Patient reports no desire to harm self or others. Onset of symptoms was January 24, 2022. 11:55 Method Of Arrival: Ambulatory ph 11:55 Acuity: MARY 2 ph Historical: - Allergies: 11:57 No Known Allergies; ph - PMHx: 11:57 GERD; Thyroid problem; Hypertensive disorder; DVT; ph - Immunization history:: Adult Immunizations unknown. - Social history:: Smoking status: Patient denies any tobacco usage or history of. Screenin:35 Abuse screen: Denies threats or abuse. Denies injuries from another. Nutritional ld1 screening: No deficits noted. Tuberculosis screening: No symptoms or risk factors identified. Fall Risk None identified. Assessment: 12:35 General: Appears in no apparent distress. comfortable, Behavior is calm, cooperative, ld1 appropriate for age. Pain: Denies pain. Neuro: Level of Consciousness is awake, alert, obeys commands, Oriented to person, place, time, situation. Cardiovascular: Capillary refill < 3 seconds Patient's skin is warm and dry. Respiratory: Airway is patent Respiratory effort is even, unlabored. GI: Abdomen is round non-distended. : No signs and/or symptoms were reported regarding the genitourinary system. EENT: No signs and/or symptoms were reported regarding the EENT system. Derm: No signs and/or symptoms reported regarding the dermatologic system. Musculoskeletal: No signs and/or symptoms reported regarding the musculoskeletal system. 13:44 Reassessment: Patient appears in no apparent distress at this time. Patient is alert, ld1 oriented x 3, equal unlabored respirations, skin warm/dry/pink. 15:12 Reassessment: Patient appears in no apparent distress at this time. Patient is alert, ld1 oriented x 3, equal unlabored respirations, skin warm/dry/pink. Patient denies pain at this time. Vital Signs: 11:55 BP 92 / 65; Pulse 107; Resp 18; Temp 97.3; Pulse Ox 98% on R/A; Weight 127.01 kg; ph Height 6 ft. 3 in. (190.50 cm); 12:35 BP 105 / 65; Pulse 91; Resp 18; Pulse Ox 97% on R/A; ld1 13:00 BP 101 / 76; Pulse 85; Resp 12; Pulse Ox 98% on R/A; ld1 15:12 BP 109 / 76; Pulse 84; Resp 16; Pulse Ox 98% on R/A; ld1 11:55 Body Mass Index 35.00 (127.01 kg, 190.50 cm) ph ED Course: 11:45 Patient arrived in ED. am2 11:47 Abner Blair DO is Attending Physician. ms3 11:57 Triage completed. ph 11:58 Arm band placed on Patient placed in an exam room. ph 12:12 Brneda France, RN is Primary Nurse. ld1 12:35 Patient has correct armband on for positive identification. Placed in gown. Bed in low ld1 position. Call light in reach. Side rails up X2. Client placed on continuous cardiac and pulse oximetry monitoring. NIBP monitoring applied. Door closed. Noise minimized. Warm blanket given. 12:35 Inserted saline lock: 20 gauge in right antecubital area, using aseptic technique. ld1 Blood collected. 12:35 No provider procedures requiring assistance completed. ld1 12:55 Extremity Venous Uni Ltd US In Process Unspecified. EDMS 13:30 XRAY Chest (1 view) In Process Unspecified. EDMS 13:39 CT Chest For PE Angio In Process Unspecified. EDMS 15:13 IV discontinued, intact, bleeding controlled, No redness/swelling at site. ld1 Administered Medications: No medications were administered Medication: 12:35 VIS not applicable for this client. ld1 Outcome: 14:52 Discharge ordered by . ms3 15:12 Discharged to home ambulatory. ld1 15:12 Condition: stable 15:12 Discharge instructions given to patient, Instructed on discharge instructions, follow up and referral plans. medication usage, Demonstrated understanding of instructions, follow-up care, medications. 15:13 Patient left the ED. ld1 Signatures: Dispatcher [employer] EDMS Sunitha Shin, RN RN Dorota Zendejas am2 Abner Blair DO DO ms3 Brenda France, RN RN ld1
--- NOTE | 2022-01-24 14:52 | EDPHYS ---
Physician Documentation [facility] Name: Leonid Polk Age: 46 yrs Sex: Male : 1975 Arrival Date: 01/24/2022 Time: 11:45 Bed 23 Private MD: ED Physician Abner Blair HPI: 01/24 14:52 This 46 yrs old Male presents to ER via Ambulatory with complaints of Blood Pressure ms3 Problem - low, Leg numbness. 14:52 46-year-old male with past medical history of GERD, thyroid problem, hypertension, DVT ms3 presents for right leg pain, lightheadedness, low blood pressure. Patient denies pain at this time. Patient states he does have generalized weakness. Patient states this is been ongoing for 2 weeks. Patient denies alleviating or inciting factors. Patient denies chest pain, shortness of breath, cough, melanotic stools.. Onset: The symptoms/episode began/occurred 2 week(s) ago. Severity of symptoms: At their worst the symptoms were moderate in the emergency department the symptoms have improved. Historical: - Allergies: 11:57 No Known Allergies; ph - PMHx: 11:57 GERD; Thyroid problem; Hypertensive disorder; DVT; ph - Immunization history:: Adult Immunizations unknown. - Social history:: Smoking status: Patient denies any tobacco usage or history of. ROS: 14:52 Neck: Negative for injury, pain, and swelling, Cardiovascular: Negative for chest pain, ms3 and palpitations. Respiratory: Negative for shortness of breath, cough, wheezing, and pleuritic chest pain, Abdomen/GI: Negative for abdominal pain, nausea, vomiting, diarrhea, and constipation. 14:52 Constitutional: Positive for malaise. 14:52 MS/extremity: Positive for right posterior thigh discomfort. 14:52 All other systems are negative. Exam: 12:30 ECG was reviewed by the Attending Physician. ms3 14:52 Constitutional: This is a well developed, well nourished patient who is awake, alert, ms3 and in no acute distress. Head/Face: Normocephalic, atraumatic. Eyes: Pupils equal round and reactive to light, extra-ocular motions intact. Lids and lashes normal. Conjunctiva and sclera are non-icteric and not injected. Periorbital areas with no swelling, redness, or edema. Neck: Trachea midline, no cervical lymphadenopathy. Supple, full range of motion without nuchal rigidity, or vertebral point tenderness. No Meningismus. Chest/axilla: Normal chest wall appearance and motion. Nontender with no deformity. Cardiovascular: Regular rate and rhythm with a normal S1 and S2. No gallops, murmurs, or rubs. Normal PMI, no JVD. No pulse deficits. Respiratory: Lungs have equal breath sounds bilaterally, clear to auscultation and percussion. No rales, rhonchi or wheezes noted. No increased work of breathing, no retractions or nasal flaring. Abdomen/GI: Soft, non-tender, with normal bowel sounds. No distension or tympany. No guarding or rebound. No evidence of tenderness throughout. Skin: Warm, dry with normal turgor. Normal color with no rashes, no lesions, and no evidence of cellulitis. MS/ Extremity: Pulses equal, no cyanosis. Neurovascular intact. Full, normal range of motion. Psych: Awake, alert, with orientation to person, place and time. Behavior, mood, and affect are within normal limits. Vital Signs: 11:55 BP 92 / 65; Pulse 107; Resp 18; Temp 97.3; Pulse Ox 98% on R/A; Weight 127.01 kg; ph Height 6 ft. 3 in. (190.50 cm); 12:35 BP 105 / 65; Pulse 91; Resp 18; Pulse Ox 97% on R/A; ld1 13:00 BP 101 / 76; Pulse 85; Resp 12; Pulse Ox 98% on R/A; ld1 15:12 BP 109 / 76; Pulse 84; Resp 16; Pulse Ox 98% on R/A; ld1 11:55 Body Mass Index 35.00 (127.01 kg, 190.50 cm) ph MDM: 12:45 Patient medically screened. ms3 14:52 Differential Diagnosis medication induced hypotension vs DVT vs anemia. Data reviewed: ms3 vital signs, nurses notes, lab test result(s), EKG, radiologic studies, and as a result, I will discharge patient. Counseling: I had a detailed discussion with the patient and/or guardian regarding: the historical points, exam findings, and any diagnostic results supporting the discharge/admit diagnosis, lab results, radiology results, the need for outpatient follow up, to return to the emergency department if symptoms worsen or persist or if there are any questions or concerns that arise at home. Special discussion: I discussed with the patient/guardian in detail that at this point there is no indication for admission to the hospital. It is understood, however, that if the symptoms persist or worsen the patient needs to return immediately for re-evaluation. ED course: Discussed case with patient's PMD Dr Szymanski and he agrees with D/C on Xarelto and patient to call his office tomorrow for appointment. Discussed this with patient. Patient is a/o x4, nad, non-toxic, ambulatory in ED, speaking full sentences.. 01/24 12:20 Order name: Basic Metabolic Panel; Complete Time: 13:16 ms3 01/24 12:20 Order name: CBC with Diff; Complete Time: 13:16 ms3 01/24 12:20 Order name: Troponin HS; Complete Time: 13:16 ms3 01/24 12:20 Order name: XRAY Chest (1 view); Complete Time: 14:29 ms3 01/24 12:20 Order name: Extremity Venous Uni Ltd US; Complete Time: 13:16 ms3 01/24 13:17 Order name: CT Chest For PE Angio; Complete Time: 14:29 ms3 01/24 12:20 Order name: EKG; Complete Time: 12:23 ms3 01/24 12:20 Order name: Cardiac monitoring; Complete Time: 12:21 ms3 01/24 12:20 Order name: EKG - Nurse/Tech; Complete Time: 12:35 ms3 01/24 12:20 Order name: IV Saline Lock; Complete Time: 12:35 ms3 01/24 12:20 Order name: Labs collected and sent; Complete Time: 12:35 ms3 01/24 12:20 Order name: O2 Per Protocol; Complete Time: 12:21 ms3 01/24 12:20 Order name: O2 Sat Monitoring; Complete Time: 12:21 ms3 EC:30 Rate is 92 beats/min. Rhythm is regular. QRS [place] is Normal. Left axis deviation noted. ms3 OR interval is normal. QRS interval is normal. Clinical impression: NSR w/ Non-specific ST/T Changes. Interpreted by me. Reviewed by me. Administered Medications: No medications were administered Disposition Summary: 01/24/22 14:52 Discharge Ordered Location: Home ms3 Condition: Stable ms3 Diagnosis - Acute embolism and thrombosis of other specified deep vein of right lower extremity ms3 - Weakness ms3 Discharge Instructions: - Discharge Summary Sheet ms3 - Deep Vein Thrombosis ms3 - Near-Syncope ms3 - Weakness ms3 Forms: - Medication Reconciliation Form ms3 - Thank You Letter ms3 - Antibiotic Education ms3 - Prescription Opioid Use ms3 Prescriptions: - Xarelto 15 mg Oral Tablet - take 1 tablet by ORAL route 2 times per day; 42 tablet; Refills: 0, Product ms3 Selection Permitted Signatures: Dispatcher [employer] Sunitha Jha RN RN ph Abner Blair, DO ms3
[2022-01-24 15:22] VITALS: TEMP 97.3
[2022-01-24 15:26] VITALS: O2SAT 98
[2022-01-24 15:28] VITALS: BP 109/76
--- NOTE | 2022-01-25 08:15 | EKG ---
Test Date: 2022-01-24 Test Time: 12:30:57 [employer]: KIRK MEASUREMENT RESULTS: Intervals: Rate: 92 SD: 150 QRSD: 98 QT: 378 QTc: 467 [place]: P: 38 SD: 150 QRS: -21 T: 64 INTERPRETIVE STATEMENTS: Normal sinus rhythm Possible Left atrial enlargement Borderline ECG Compared to ECG 02/23/2016 17:11:51 No significant changes Electronically Signed On 01-25-22 08:11:17 CDT by Mathew Alvarez
== END 2022-01-24 15:13 | disposition home or self-care (01) ==
LOC: ER 11:44
DX: I82.491 Acute embolism and thrombosis of other specified deep vein of right lower extremity (principal); R53.1 Weakness; I10 Essential (primary) hypertension; Z86.718 Personal history of other venous thrombosis and embolism; Z79.01 Long term (current) use of anticoagulants
CPT/HCPCS: 93005; 85025; 80048; 36415; 84484; 71275; 71045; 93971; 99284; Q9967

== ENCOUNTER 2022-10-23 17:22 | Emergency (ER) | payer BC ==
--- OUTSIDE RECORDS SUMMARY | 2022-10-23 17:27 | XMS REPORT | Continuity of Care Document ---
:1975 Author Organization [facility] t Address [address] [place] [address] Care Team Providers Name Role Phone Nessa SULTANA, Valentino Easley Primary Care Physician YOANA GILLESPIE Attending Clinician Unavailable NANCY TAYLOR Attending Clinician Unavailable Tee SULTANA, Jerman Lisa Attending Clinician MD NANCY TAYLOR Attending Clinician UnavailSkyler Cage MD Attending Clinician Zarina Reyes DO Attending Clinician DEISY WOO Attending Clinician Unavailable ZARINA REYES Attending Clinician Unavailable ZARINA REYES Attending Clinician Unavailable Doctor Unassigned, [place] Attending Clinician Unavailable Ramez [facility], [facility]ician Jonn Zamora MD Attending Clinician Cam Nagel MD Attending Clinician Irving Luna MD Attending Clinician Abigail Aparicio DO Attending Clinician Rebecca Epps Attending Clinician Андрей Dimas Attending Clinician ADRY BLEDSOE Attending Clinician Unavailable [facility] Attending Clinician Unavailable Adry Artis Attending Clinician MURINGAMPURATH MARCO, DISNI Admitting Clinician Unavailable ANDRY LARA MD DISNI Admitting Clinician Unavailjason Nagel MD, Cam Anastasia Admitting Clinician Payers Payer Name Policy Type Policy Number Effective Date Expiration Date Driss amin [facility] [id number] 2016 00:00:00 Problems Condition Condition Condition Status Onset Resolution Last Treating Co mments Source Name Details Category Date Date Treatment Clinician Date Pulmonary Pulmonary Disease Active Uni vers embolism embolism 02-01 ity of 00:00: [place] 00 Medical Branch Obesity Obesity Disease Active Univers (BMI (BMI 8-23 ity of 30-39.9) 30-39.9) 00:00: Medical Branch [...] Clinician Hydrocod Propensi Active Other (See Patient M kerryodi one ty to Comments) [address] adverse 00:00: does not Hospita reaction 00 like how l s to it makes drug him feel. He gets real hot and "feels real bad" Tree Propensi Active Hives 0 Univers Nuts ty to 02-01 ity of adverse 00:00: [place] reaction 00 Medical s Branch TREE Food Active Hives 0 Univers NUTS 02-01 ity of 00:00: [place] 00 Medical Branch Tree Propensi Active Hives 0 [facility] Nuts ty to 02-01 st adverse 00:00: Hospita reaction 00 l s to drug NO KNOWN Drug Active Univers ALLERGIE Class ity of S [facility] Family History Family Member Diagnosis Comments Start Date Stop Date Source Natural father CABG/Stent [facility] Natural father [facility] Natural mother Bradycardia [facility] Social History Social Habit Start Date Stop Date Quantity Comments Source History of tobacco Snuff User [facility] Exposure to Not sure [facility] SARS-CoV-2 (event) Hospit al Gender identity [facility] Sexual orientation [facility] Alcohol intake 2021-09-06 2021-09-06 Current drinker [facility] dist 00:00:00 00:00:00 of alcohol Hospital (finding) History of Social 2021-09-06 2021-09-[address] function 00:00:00 00:00:00 Hospital Tobacco use and 2021-07-21 2021-07-21 User of Islam exposure 00:00:00 00:00:00 smokeless Hospital tobacco History [facility] 2020-02-02 2020-02-02 5 University o f Alcohol Frequency 00:00:00 00:00:00 [place] [facility] History [facility] 2020-02-02 2020-02-02 1 University o f Alcohol Std Drinks 00:00:00 00:00:00 [place] [facility] History [facility] 2020-02-02 2020-02-02 99 [place] o f Alcohol Binge 00:00:00 00:00:00 [facility] Branch Sex Assigned At [birth year] [facility] 00:00:00 00:00:00 Hospital Smoking Status Start Date Stop Date Source Never smoked tobacco [facility] Medications Ordered Filled Start Stop Current Ordering Indication Dosage Frequency Signature Comments Components Source Medication Medication Date Date Medication? Clinician (SIG) Name Name esomeprazol Yes 40mg QD Take 40 mg Methodi e (NexIUM) 3-[address] 40 MG 15:10: daily Hospita capsule 28 before l breakfast. indomethaci Yes 25mg Q.5D Take 25 mg [facility] n (INDOCIN) 3-[address] 25 MG 15:10: (two) Hospita capsule 28 times a l day with meals. aspirin Yes 81mg QD Take 1 Methodi (ECOTRIN) 3-28 tablet (81 st 81 MG 15:10: mg total) Hospita enteric 28 by mouth l coated daily. tablet esomeprazol Yes 40mg QD Take 40 mg [...] 13:05: nightly. Hospita tablet 59 l indomethaci 0 Yes 25mg Q.5D Take 25 mg Methodi [...] for per tablet sbp less than 110 valsartan-h Yes 1{tbl} QD Take 1 Me thodi ydrochlorot 2-[address] hiazide 00:00: mouth Hospita (DIOVAN-HCT 00 daily. l ) 320-25 mg Hold for per tablet sbp less than 110 etodolac 2021-2021- No etodolac Meth asuncion (LODINE) 07-[address] 500 MG 15:10: 00:00 tablet Hospita tablet 54 :00 l amLODIPine 2021-0 2021- No amlodipine Methodi (NORVASC) 5 07-[address] mg tablet 09:57: 00:00 tablet Hospi ta 45 :00 l amLODIPine 0 Yes 7.5mg QD Take 1.5 Me thodi (NORVASC) 5 2-[address] mg tablet 00:00: (7.5 mg Hospi ta 00 total) by l mouth daily. amLODIPine Yes 7.5mg QD Take 1.5 Me thodi (NORVASC) 5 2-[address] mg tablet 00:00: (7.5 mg Hospi ta 00 total) by l mouth daily. nitroglycer 2022- No 1 under Me thodi in 07-[address] (NITROSTAT) 00:00: 05:59 as needed Hospita 0.4 MG SL 00 :00 for l tablet angina, may repeat q5mins for up three doses nitroglycer 2022- No 1 under Me thodi [...] ta mg/1.5 mL) 00 once a l subcutaneou week. s pen Every Monday Ozempic 2020-06 Yes .5mg Q7D Inject 0.5 Meth asuncion 0.25 mg or 2-[address] 0.5 mg(2 00:00: the skin Hospi ta mg/1.5 mL) 00 once a l subcutaneou week. s pen Every Monday valsartan-h 2020-06- No Metho di ydrochlorot 07-25 st hiazide 00:00: 00:00 Hospita (DIOVAN-HCT 00 :00 l ) 320-25 mg per tablet metFORMIN 2020-06 Yes 500mg Q.5D 500 mg 2 Met hodi XR 07-13 (two) st (GLUCOPHAGE 00:00: times a Hos dori -XR) 500 mg 00 day. l 24 hr tablet metFORMIN 2020-06 Yes 500mg Q.5D 500 mg 2 Met hodi XR -01 (two) st (GLUCOPHAGE 00:00: times a Hos dori -XR) 500 mg 00 day. l 24 hr tablet metoprolol 2020-06 Yes 100mg QD Take 100 Me thodi succinate 1-[address] XL 00:00: mouth Hospita (TOPROL-XL) 00 nightly. l 100 mg 24 hr tablet metoprolol 2020-06 Yes 100mg QD Take 100 Me thodi succinate 1-[address] XL 00:00: mouth Hospita (TOPROL-XL) 00 nightly. l 100 mg 24 hr tablet furosemide 2020-06 Yes PRN Methodi (LASIX) 20 1-15 st mg tablet 00:00: Hospita 00 l furosemide 2020-06 Yes PRN [facility] (LASIX) 20 1-15 st mg tablet 00:00: Hospita 00 l iohexol 0 2020- No 100mL 100 mL, Unive rs (OMNIPAQUE 09-22-13 Intravenou it y of 350 01:45: 01:28 s, ONCE, 1 [place] BULK-100 00 :00 dose, Mon Medica l mL) 09/21/20 at Branch injection 2045, 100 mL Routine allopurinoL 2019-06 Yes 300mg QD Take 300 M ethodi (ZYLOPRIM) 0-[address] 300 MG 00:00: mouth Hospita tablet 00 daily. l allopurinoL 2019-06 Yes 300mg Take 300 U [...] 8-24 mouth. ity of /doxylam 01:42: [place] ([address] ORAL) [place] metformin 2020-0 Yes Take by Unive rs HCl 8-24 mouth. ity of (METFORMIN 01:42: [place] ORAL) Medical Branch valsartan-h 2020-0 Yes valsartan U nivers ydrochlorot 8-24 160 ity of hiazide 01:42: mg-hydroch [place] 160-25 mg 42 lorothiazi Medi thomas per tablet de 25 mg Branc h tablet amLODIPine 2020-0 Yes amlodipine U nivers 5 mg tablet 8-24 5 mg ity of 01:42: tablet [address] Branch DM/p-ephed/ 2020-0 Yes Take by Uni vers acetaminoph 8-24 mouth. ity of /doxylam 01:42: [place] ([address] ORAL) [place] metformin 2019-0 Yes Take by Unive rs HCl 8-24 mouth. ity of (METFORMIN 01:42: [place] ORAL) Medical Branch valsartan-h 2020-0 Yes valsartan U nivers ydrochlorot 8-24 160 ity of hiazide 01:42: mg-hydroch [place] 160-25 mg 42 lor[place]ia[place] Medi thomas per tablet de 25 mg Branc h tablet amLODIPine 2020-0 Yes amlodipine U nivers 5 mg tablet 8-24 5 mg ity of 01:42: tablet [address] Branch DM/p-ephed/ 2020-0 Yes Take by Uni vers acetaminoph 8-24 mouth. ity of /doxylam 01:42: [place] ([address]) [place] metformin 2019-0 Yes Take by Unive rs HCl 8-24 mouth. ity of (METFORMIN 01:42: [place] ORAL) Medical Branch valsartan-h 2020-0 Yes valsartan U nivers ydrochlorot 8-24 160 ity of hiazide 01:42: mg-hydroch [place] 160-25 mg 42 l[place] Medi thomas per tablet de 25 mg Branc h tablet amLODIPine 2020-0 Yes amlodipine U nivers 5 mg tablet 8-24 5 mg ity of 01:42: tablet [address] Branch DM/p-ephed/ 2020-0 Yes Take by Uni vers acetaminoph 8-24 mouth. ity of /doxylam 01:42: [place] ([address] ORAL) Branch metformin 2020-0 Yes Take by Unive rs HCl 8-24 mouth. ity of (METFORMIN 01:42: [place] ORAL) Medical Branch valsartan-h 2020-0 Yes valsartan U nivers ydrochlorot 8-24 160 ity of hiazide 01:42: mg-hydroch [place] 160-25 mg 42 l[place] Medi thomas per tablet de 25 mg Branc h tablet amLODIPine 2020-0 Yes amlodipine U nivers 5 mg tablet 8-24 5 mg ity of 01:42: tablet [address] Branch DM/p-ephed/ 2020-0 Yes Take by Uni vers acetaminoph 8-24 mouth. ity of /doxylam 01:42: [place] ([address] ORAL) [place] metformin 2019-0 Yes Take by Unive rs HCl 8-24 mouth. ity of (METFORMIN 01:42: [place] ORAL) [address] [place] [address] Branch valsartan-h 2020-0 Yes valsartan U nivers ydrochlorot 8-24 160 ity of hiazide 01:42: mg-hydroch [place] 160-25 mg 42 lor[place]ia[place] Medi thomas per tablet de 25 mg Branc h tablet amLODIPine 2020-0 Yes amlodipine U nivers 5 mg tablet 8-24 5 mg ity of 01:42: tablet [address] Branch DM/p-ephed/ 2020-0 Yes Take by Uni vers acetaminoph 8-24 mouth. ity of /doxylam 01:42: [place] ([address]) Branch metformin 2019-0 Yes Take by Unive rs HCl 8-24 mouth. ity of (METFORMIN 01:42: [place] ORAL) Medical Branch valsartan-h 2020-0 Yes valsartan U nivers ydrochlorot 8-24 160 ity of hiazide 01:42: mg-hydroch [place] 160-25 mg 42 [place] Medi thomas per tablet de 25 mg Branc h tablet amLODIPine 2020-0 Yes amlodipine U nivers 5 mg tablet 8-24 5 mg ity of 01:42: tablet [address] Branch DM/p-ephed/ 2020-0 Yes Take by Uni vers acetaminoph 8-24 mouth. ity of /doxylam 01:42: [place] ([address] ORAL) Branch metformin 2020-0 Yes Take by Unive rs HCl 8-24 mouth. ity of (METFORMIN 01:42: [place] ORAL) Medical Branch valsartan-h 2020-0 Yes valsartan U nivers ydrochlorot 8-24 160 ity of hiazide 01:42: mg-hydroch [place] 160-25 mg 42 [place] Medi thomas per tablet de 25 mg Branc h tablet amLODIPine 2020-0 Yes amlodipine U nivers 5 mg tablet 8-24 5 mg ity of 01:42: tablet [address] Branch DM/p-ephed/ 2020-0 Yes Take by Uni vers acetaminoph 8-24 mouth. ity of /doxylam 01:42: [place] ([address] ORAL) [place] metformin 2019-0 Yes Take by Unive rs HCl 8-24 mouth. ity of (METFORMIN 01:42: [facility]) [address] [place] [address] Branch valsartan-h 2020-0 Yes valsartan U nivers ydrochlorot 8-24 160 ity of hiazide 01:42: mg-hydroch [place] 160-25 mg 42 [place] Medi thomas per tablet de 25 mg Branc h tablet amLODIPine 2020-0 Yes amlodipine U nivers 5 mg tablet 8-24 5 mg ity of 01:42: tablet [address] DM/p-ephed/ 2020-0 Yes Take by Uni vers acetaminoph 8-24 mouth. ity of /doxylam 01:42: [place] ([address] ORAL) [place] metformin 2019-0 Yes Take by Unive rs HCl 8-24 mouth. ity of (METFORMIN 01:42: [place] ORAL) [address] [place] [address] Branch valsartan-h 2020-0 Yes valsartan U nivers ydrochlorot 8-24 160 ity of hiazide 01:42: mg-hydroch [place] 160-25 mg 42 [place] Medi thomas per tablet de 25 mg Branc h tablet amLODIPine 2020-0 Yes amlodipine U nivers 5 mg tablet 8-24 5 mg ity of 01:42: tablet [address] Branch DM/p-ephed/ 2020-0 Yes Take by Uni vers acetaminoph 8-24 mouth. ity of /doxylam 01:42: [place] (NYQUIL 42 Medical ORAL) Branch metformin 2020-0 Yes Take by Unive rs HCl 24 mouth. ity of (METFORMIN 01:42: [place] ORAL) 42 Medical Branch rivaroxaban 2020-0 Yes 15mg 15 mg, Univ ers (XARELTO) 8-24 Oral, BID, ity of tablet 15 01:00: First dose [place] mg 00 (after Medical last Branch modificati on) on [place] 02/02/20 at 2000, Until Discontinu ed, Routine furosemide 2020-0 Yes 10mg 10 mg, Unive rs (LASIX) 02-01 Oral, ity of half tablet 15:00: DAILY, [place] 10 mg 00 First dose Medical on [facility] 02/02/20 at 1000, Until Discontinu ed, Routine rivaroxaban 2019-0 2020- No 20mg 20 mg, Uni vers (XARELTO) 02-01 Oral, BID, ity of tablet 20 13:00: 14:59 First dose [place] mg 00 :13 on [facility] 02/02/20 at Branch 0800, Until Discontinu ed, Routine levothyroxi 2019-0 Yes 25ug 25 mcg, Uni vers ne 02-01 Oral, ity of (SYNTHROID) 11:00: QAM-0600, [place] tablet 25 00 First dose Medi thomas mcg on [facility] 02/02/20 at 0600, Until Discontinu ed, Routine iohexol 2020-0 2020- No 120mL 120 mL, Unive rs (OMNIPAQUE 02-01 Intravenou it y of 350 02:45: 02:39 s, ONCE, 1 [place] BULK-100 00 :00 dose, Sat Medica l mL) 02/01/20 at Branch injection 2145, 120 mL Routine sodium 2020-0 Yes 5mL 5 mL, Univers chloride 02-01 Intravenou ity o f (NS) 01:31: s, PRN, [place] injection 5 30 Starting Medi thomas mL Sat [place] 02/01/20 at 2030, Until Discontinu ed, Routine, IV line flushing furosemide 2020-0 2020- No [id number] 10mg Take 0.5 Univers 20 mg 02-01 tablets by ity of tablet 00:00: 04:59 mouth once [place] 00 :00 daily as Medical needed Branch (Leg swelling) for up to 30 days. furosemide 2019- No [id number] 10mg Take 0.5 Univers 20 mg 02-01 tablets by ity of tablet 00:00: 04:59 mouth once [place] 00 :00 daily as Medical needed Branch (Leg swelling) for up to 30 days. furosemide 2019- No [id number] 10mg Take 0.5 Univers 20 mg 02-01 tablets by ity of tablet 00:00: 04:59 mouth once [place] 00 :00 daily as Medical needed Branch (Leg swelling) for up to 30 days. furosemide 2019- No [id number] 10mg Take 0.5 Univers 20 mg 02-01 tablets by ity of tablet 00:00: 04:59 mouth once [place] 00 :00 daily as Medical needed Branch (Leg swelling) for up to 30 days. rivaroxaban 2020- No 20mg Take 1 Uni vers (XARELTO) 01-28 tablet by ity of 20 mg 00:00: 05:59 mouth [place] tablet 00 :00 daily for Medical 159 days. Branch Please start after you finish the twice a day dose. Indication s: dvt treatment rivaroxaban 2020- No 20mg Take 1 Uni vers (XARELTO) 01-28 tablet by ity of 20 mg 00:00: 05:59 mouth [place] tablet 00 :00 daily for Medical 159 days. Branch Please start after you finish the twice a day dose. Indication s: dvt treatment rivaroxaban 2020- No 20mg Take 1 Uni vers (XARELTO) 01-28 tablet by ity of 20 mg 00:00: 05:59 mouth [place] tablet 00 :00 daily for Medical 159 days. Branch Please start after you finish the twice a day dose. Indication s: dvt treatment rivaroxaban 2020- No 20mg Take 1 Uni vers (XARELTO) 01-28 tablet by ity of 20 mg 00:00: 05:59 mouth [place] tablet 00 :00 daily for Medical 159 days. Branch Please start after you finish the twice a day dose. Indication s: dvt treatment rivaroxaban 2020- No 20mg Take 1 Uni vers [...] s: dvt treatment rivaroxaban 2019-0 2020- No 15mg Take 1 Uni vers (XARELTO) 01-28-10 tablet by ity of 15 mg 00:00: 04:59 mouth 2 [place] tablet 00 :00 (two) Medical times Branch daily for 21 days. Indication s: DVT treatment rivaroxaban 2020-0 2020- No 15mg Take 1 Uni vers (XARELTO) 01-28 09-10 tablet by ity of 15 mg 00:00: 04:59 mouth 2 [place] tablet 00 :00 (two) Medical times Branch daily for 21 days. Indication s: DVT treatment rivaroxaban 2020-0 2020- No 15mg Take 1 Uni vers (XARELTO) 01-28 09-10 tablet by ity of 15 mg 00:00: 04:59 mouth 2 [place] tablet 00 :00 (two) Medical times Branch daily for 21 days. Indication s: DVT treatment methylpredn 2019-0 2020- No 125mg 125 mg, IV Univers isolone sod 12-17 Piggyback, i ty of succ 04:45: 03:59 ONCE, 1 [place] (SOLU-MEDRO 00 :00 dose, Tue Med ical L) 12/17/19 at Branch injection 2345, STAT 125 mg diphenhydrA 2019-0 2019- No 25mg 25 mg, Uni vers MINE 12-17 Slow IV ity of (BENADRYL) 04:45: 03:59 Push, [place] injection 00 :00 ONCE, 1 Medical 25 mg dose, [facility] Branch 12/17/19 at 2345, STAT iohexol 2019-0 2020- No 120mL 120 mL, [facility] [place] [facility] rs (OMNIPAQUE 12-17 Intravenou it y of 350 04:10: 04:10 s, ONCE, 1 [place] BULK-150 00 :00 dose, Tue Medica l mL) 12/17/19 at Branch injection 2330, 120 mL Routine DM/p-ephed/ 2020-0 Yes Take by Uni vers acetaminoph 708 mouth. ity of /doxylam 01:28: [place] (NYQUIL 49 Medical ORAL) Branch DM/p-ephed/ 2020-0 Yes Take by Uni vers acetaminoph 7-08 mouth. ity of /doxylam 01:28: [place] (NYQUIL 49 Medical ORAL) [place] valsartan-h 2020-0 Yes valsartan U nivers ydrochlorot 12-17 160 ity of hiazide 01:16: mg-hydroch [place] 160-25 mg 02 [place] Medi thomas per tablet de 25 mg Branc h tablet amLODIPine 2020-0 Yes amlodipine U nivers 5 mg tablet 7-08 5 mg ity of 01:16: tablet [address] valsartan-h 2020-0 Yes valsartan U nivers ydrochlorot 7 160 ity of hiazide 01:16: mg-hydroch [place] 160-25 mg 02 [place] Medi thomas per tablet de 25 mg Branc h tablet amLODIPine 2020-0 Yes amlodipine U nivers 5 mg tablet 7-08 5 mg ity of 01:16: tablet [place] 02 Medical Branch valsartan-h 0 Yes valsartan U nivers ydrochlorot 7-05 160 ity of hiazide 18:38: mg-hydroch [place] 160-25 mg 52 [place] Medi thomas per tablet de 25 mg Branc h tablet amLODIPine 2019-0 Yes amlodipine U nivers 5 mg tablet 7-05 5 mg ity of 18:38: tablet [facility] valsartan-h Yes valsartan U nivers ydrochlorot 7-05 160 ity of hiazide 18:38: mg-hydroch [place] 160-25 mg 52 l[place] Medi thomas per tablet de 25 mg Branc h tablet amLODIPine Yes amlodipine U nivers 5 mg tablet 7-05 5 mg ity of 18:38: tablet [address] [place] [address] ESOMEPRAZOL Yes Univer s E MAGNESIUM 5-20 ity of ORAL 00:00: Medical Branch ESOMEPRAZOL 2019-0 Yes Univer s E MAGNESIUM 5-20 ity of ORAL 00:00: Medical Branch ESOMEPRAZOL 2019-0 Yes Univer s E MAGNESIUM 5-20 ity of ORAL 00:00: Medical Branch ESOMEPRAZOL 2019-0 Yes Univer s E MAGNESIUM 5-20 ity of ORAL 00:00: Medical Branch ESOMEPRAZOL 2019-0 Yes Univer s E MAGNESIUM 5-20 ity of ORAL 00:00: Medical Branch ESOMEPRAZOL 2019-0 Yes Univer s E MAGNESIUM 5-20 ity of ORAL 00:00: Medical Branch ESOMEPRAZOL 2020-0 Yes Univer s E MAGNESIUM 5-20 ity of ORAL 00:00: Medical Branch ESOMEPRAZOL 2019-0 Yes Univer s E MAGNESIUM 5-20 ity of ORAL 00:00: Medical Branch ESOMEPRAZOL 2019-0 Yes Univer s E MAGNESIUM 5-20 ity of ORAL 00:00: Medical Branch ESOMEPRAZOL 2019-0 Yes Univer s E MAGNESIUM 5-20 ity of ORAL 00:00: Medical Branch ESOMEPRAZOL 2019-0 Yes Univer s E MAGNESIUM 5-20 ity of ORAL 00:00: [place] 00 Medical Branch ESOMEPRAZOL 2020-0 Yes Univer s E MAGNESIUM 5-20 ity of ORAL 00:00: [place] 00 Medical Branch ESOMEPRAZOL 2020-0 Yes Univer s E MAGNESIUM 5-20 ity of ORAL 00:00: [place] 00 Medical Branch ESOMEPRAZOL 2020-0 Yes Univer s E MAGNESIUM 5-20 ity of ORAL 00:00: [place] 00 Medical Branch levothyroxi 2020-0 Yes 25ug QD Take 25 Met hodi ne 4-[address] (Synthroid) 00:00: mouth Hospi ta 25 mcg 00 every l tablet morning. levothyroxi 2020-0 Yes 25ug Take 25 Uni [...] Medical morning. Branch levothyroxi 2020-0 Yes 25ug QD Take 25 Met hodi ne 4-[address] (SYNTHROID) 00:00: mouth Hospi ta 25 mcg 00 every l tablet morning. Immunizations Ordered Filled Immunization Date Status Comments [facility] e Immunization Name Name SARS-COV-2 COVID-19 2020-08-11 Completed Unive rsity of PFIZER VACCINE 00:00:00 [facility] SARS-COV-2 COVID-19 2020-08-11 Completed Unive rsity of PFIZER VACCINE 00:00:00 [facility] SARS-COV-2 COVID-19 2020-07-21 Completed Unive rsity of PFIZER VACCINE 00:00:00 [facility] SARS-COV-2 COVID-19 2020-07-21 Completed Unive rsity of PFIZER VACCINE 00:00:00 [facility] Vital Signs Vital Name Observation Time Observation Value Comments Source Systolic blood 2020-09-22 02:00:00 127 mm[Hg] Univer sity of pressure [facility] [place] [facility] Diastolic blood 2020-09-22 02:00:00 89 mm[Hg] Unive rsity of pressure [facility] [place] [facility] Heart rate 2020-09-22 02:00:00 95 /min Universi ty of [facility] [place] [facility] Respiratory rate 2020-09-22 02:00:00 12 /min Univ ersity of [facility] [place] [facility] Oxygen saturation in 2020-09-22 02:00:00 97 /min [facility] Arterial blood by [facility] Pulse oximetry Branch Body temperature 2020-09-22 00:58:00 37.61 Bere Univ ersity of [place] [facility] Body weight 2020-09-22 00:58:00 127.007 kg Universi ty of [place] [facility] BMI 2020-09-22 00:58:00 35.00 kg/m2 Universi ty of [place] [facility] Systolic blood 2020-03-26 17:43:00 136 mm[Hg] Univer sity of pressure [place] [facility] Diastolic blood 2020-03-26 17:43:00 89 mm[Hg] Unive rsity of pressure [place] [facility] Heart rate 2020-03-26 17:43:00 79 /min Universi ty of [place] [facility] Body height 2020-03-26 17:43:00 190.5 cm Universi ty of [place] [facility] Body weight 2020-03-26 17:43:00 136.079 kg Universi ty of [place] [facility] BMI 2020-03-26 17:43:00 37.50 kg/m2 Universi ty of [place] [facility] Oxygen saturation in 2020-03-26 17:43:00 99 /min University of Arterial blood by [facility] thomas Pulse oximetry Branch Systolic blood 2020-03-26 17:43:00 136 mm[Hg] Univer sity of pressure [place] [facility] Diastolic blood 2020-03-26 17:43:00 89 mm[Hg] Unive rsity of pressure [place] [facility] Heart rate 2020-03-26 17:43:00 79 /min Universi ty of [place] [facility] Body height 2020-03-26 17:43:00 190.5 cm Universi ty of [place] [facility] Body weight 2020-03-26 17:43:00 136.079 kg Universi ty of [place] [facility] BMI 2020-03-26 17:43:00 37.50 kg/m2 Universi ty of [place] [facility] Oxygen saturation in 2020-03-26 17:43:00 99 /min University of Arterial blood by [facility] thomas Pulse oximetry Branch Systolic blood 2020-02-02 16:47:00 123 mm[Hg] Univer sity of pressure [place] [facility] Diastolic blood 2020-02-02 16:47:00 87 mm[Hg] Unive rsity of pressure [place] [facility] Body temperature 2020-02-02 16:47:00 36.33 Bere Univ ersity of [place] [facility] Respiratory rate 2020-02-02 16:47:00 18 /min Univ ersity of [place] [facility] Oxygen saturation in 2020-02-02 16:47:00 99 /min University of Arterial blood by [facility] Pulse oximetry Branch Heart rate 2020-02-02 13:09:00 73 /min Universi ty of [place] [facility] Body height 2020-02-02 07:25:00 190.5 cm Universi ty of [place] [facility] Body weight 2020-02-02 07:25:00 132.995 kg bedscale Universi ty of [place] [facility] BMI 2020-02-02 07:25:00 36.65 kg/m2 Universi ty of [place] [facility] Systolic blood 2020-01-29 15:24:00 143 mm[Hg] Univer sity of pressure [place] [facility] Diastolic blood 2020-01-29 15:24:00 97 mm[Hg] Unive rsity of pressure [place] [facility] [place] Heart rate 2020-01-29 15:24:00 72 /min Universi ty of [place] [facility] Respiratory rate 2020-01-29 15:24:00 18 /min Univ ersity of [place] [facility] Oxygen saturation in 2020-01-29 15:24:00 98 /min University of Arterial blood by [facility] Pulse oximetry Branch Body temperature 2020-01-29 14:28:00 37.22 Bere Univ ersity of [place] [facility] Body weight 2020-01-29 14:28:00 133.811 kg Universi ty of [place] [facility] BMI 2020-01-29 14:28:00 36.87 kg/m2 Universi ty of [place] [facility] Systolic blood 2019-12-18 06:00:00 118 mm[Hg] Univer sity of pressure [place] [facility] Diastolic blood 2019-12-18 06:00:00 89 mm[Hg] Unive rsity of pressure [place] [facility] Heart rate 2019-12-18 06:00:00 81 /min Universi ty of [place] [facility] Respiratory rate 2019-12-18 06:00:00 19 /min Univ ersity of [place] [facility] Oxygen saturation in 2019-12-18 06:00:00 92 /min University of Arterial blood by [facility] [facility] Pulse oximetry Branch Body temperature 2019-12-18 01:55:47 37.11 Bere [facility] [place] [facility] Body weight 2019-12-18 01:14:00 132.45 kg [facility] [place] [facility] BMI 2019-12-18 01:14:00 36.50 kg/m2 Universi ty [facility] Systolic blood 2019-12-15 18:38:00 128 mm[Hg] Univer sity of pressure [facility] Diastolic blood 2019-12-15 18:38:00 88 mm[Hg] Unive rsity of pressure [facility] Heart rate 2019-12-15 18:38:00 95 /min Universi ty [facility] Body temperature 2019-12-15 18:38:00 37.61 [facility]re [facility] Respiratory rate 2019-12-15 18:38:00 20 /min [facility] Body height 2019-12-15 18:38:00 190.5 cm Universi ty [facility] Body weight 2019-12-15 18:38:00 131.543 kg Universi ty [facility] BMI 2019-12-15 18:38:00 36.25 kg/m2 Universi [facility] Oxygen saturation in 2019-12-15 18:38:00 98 /min University Arterial blood by [facility] Pulse oximetry [place] Systolic blood 2021-07-22 17:14:14 132 mm[Hg] [facility] pressure Diastolic blood 2021-07-22 17:14:14 89 mm[Hg] [facility] pressure Heart rate 2021-07-22 17:14:14 72 /min [facility] Body temperature 2021-07-22 17:14:14 35.67 Bere [facility] Respiratory rate 2021-07-22 17:14:14 17 /min [facility] Oxygen saturation in 2021-07-22 17:14:14 99 /min [facility] Arterial blood by Pulse oximetry Body height 2021-07-21 20:34:50 190.5 cm [facility] Body weight 2021-07-21 20:34:50 137.077 kg [facility] BMI 2021-07-21 20:34:50 37.77 kg/m2 [facility] Procedures Procedure Date / Time Performing Clinician Source Performed POC GLUCOSE 2021-07-22 Rolf Taylor ospital 17:13:00 Disni CREATINE KINASE, TOTAL 2021-07-[address] [facility] (CPK) 17:09:00 POC GLUCOSE 2021-07-22 [facility] ospital 14:21:00 Disni TROPONIN T 2021-07-22 [facility] 09:22:00 Toi HC COMPLETE BLD COUNT 2021-07-22 [facility] W/AUTO DIFF 09:22:00 Disni COMPREHENSIVE METABOLIC 2021-07-22 [facility] PANEL 09:22:00 Disni HEMOGLOBIN A1C 2021-07-22 [facility] ospital 09:22:00 Disni LIPID PANEL 2021-07-22 [facility] ospital 09:22:00 Disni ESTIMATED GFR 2021-07-22 [facility] ospital 09:22:00 Disni CV LEFT HEART CATH LV 2021-07-22 Jerman Oliveira [facility] GRAM WITH CORS 00:30:00 COVID-19 ANTI-SPIKE IGG 2021-07-21 [facility] ANTIBODY TITER 21:49:00 Disni TROPONIN T 2021-07-21 Talia Rouse [facility] don 21:49:00 Toi COVID-19 SEROLOGY PATIENT 2021-07-21 [facility] SURVEILLANCE 21:49:00 Disni THYROID STIMULATING 2021-07-21 [facility] HORMONE 21:49:00 Dislow COVID-19 QUALITATIVE 2021-07-21 [facility] 18:16:00 Toi PROTHROMBIN TIME WITH INR 2021-07-21 [facility] 18:16:00 Toi PARTIAL THROMBOPLASTIN 2021-07-21 Talia Rouse [facility] TIME (PTT) 18:16:00 Toi TYPE AND SCREEN 2021-07-21 [facility] 18:16:00 Toi HC COMPLETE BLD COUNT 2021-07-21 [facility] W/AUTO DIFF 17:56:00 Toi COMPREHENSIVE METABOLIC 2021-07-21 [facility] PANEL 17:56:00 Toi TROPONIN T 2021-07-21 Talia Rouse Hos[facility] don 17:56:00 Toi B NATRIURETIC PEPTIDE 2021-07-21 Talia Rouse [facility] 17:56:00 Toi ESTIMATED GFR 2021-07-21 Talia Rouse Hos[facility] don 17:56:00 Toi XR CHEST 1 VW 2021-07-21 Talia Rouse Hos[facility] don 17:55:05 Toi ECG ED PRELIMINARY 2021-07-21 Talia Rouse Ho spital INTERPRETATION 17:42:45 Toi ECG 12-LEAD 2021-07-21 Talia Rouse Hos[facility] don 17:33:19 Toi CV TREADMILL STRESS TEST 2021-07-21 Yoana Gillespie [facility] 17:06:45 TROPONIN I 2020-09-22 Javy [facility] xa 03:21:[address] [facility] [address] CHEST PULMONARY 2020-09-22 Javy [facility] ANGIOGRAM 01:34:29 [facility] XR CHEST 1 VW 2020-09-22 [facility] 01:21:32 [facility] NOTICE OF PRIVACY 2020-09-22 Doctor Unassigned, No [facility] PRACTICES 01:20:07 Name Medical [place] LIPASE 2020-09-22 Javy [facility] xa 01:11:00 [facility] TROPONIN I 2020-09-22 [facility] 01:11:00 [facility] HEPATIC FUNCTION PANEL 2020-09-22 Javy [facility] ([id number]) (ALB,T.PRO,BILI 01:11:00 [facility] T,BU/BC,ALT,AST,ALK PHOS) BASIC METABOLIC PANEL 2020-09-22 JavyCount includes the [facility] (NA, K, CL, CO2, GLUCOSE, 01:11:00 Medica l [place] BUN, CREATININE, CA) CBC WITH DIFF 2020-09-22 [facility] 01:11:00 [facility] PROTHROMBIN TIME / INR 2020-09-22 [facility] 01:11:00 [facility] ACTIVATED PARTIAL 2020-09-22 Javy [facility] THRMPLAS MATA 01:11:00 Medical Branch COVID-19 (ID NOW RAPID 2020-09-22 Skyler Palafox [facility] TESTING) 01:11:00 Medical Branch CONSENT/REFUSAL FOR 2020-09-22 Doctor Unassigned, No [facility] DIAGNOSIS AND TREATMENT 00:46:21 Name Medical Branch NO SHOW OR MISSED 2020-03-26 Doctor Unassigned, No [facility] APPOINTMENT POLICY 17:35:44 Name [facility] ACKNOWLEDGEMENT MEDICATION CORRESPONDENCE 2020-02-18 Doctor Unassigned, No [facility] 05:01:00 Name Medical Branch AUTHORIZATION FOR RELEASE 2020-02-03 Doctor Unassigned, No [facility] 05:01:00 Name [facility] POCT GLUCOSE (AUTOMATED) 2020-02-02 Priscilla Myrick [facility] 10:12:00 Medical Branch UNILATERAL VENOUS DUPLEX 2020-02-02 Jonn Zamora [facility] LOWER EXTREMITY BY 02:57:48 [facility] VASCULAR LAB CT CHEST PULMONARY 2020-02-02 Jonn Zamora [facility] ANGIOGRAM 02:44:24 [facility] BLOOD CULTURE SCREEN 2020-02-02 Jonn Zamora [facility] 02:31:00 Medical Branch XR CHEST 1 VW 2020-02-02 Jonn Zamora [facility] 01:48:36 Medical Branch COVID-19 (ID NOW RAPID 2020-02-02 Jonn Zamora [facility] TESTING) 01:34:00 Medical Branch LIPASE 2020-02-02 Jonn Zamora [facility] 01:33:00 [facility] TROPONIN I 2020-02-02 Jonn Zamora [facility] 01:33:00 Medical Branch COMP. METABOLIC PANEL 2020-02-02 Jonn Zamora [facility] ([id number]) 01:33:00 Medical Branch CBC WITH DIFF 2020-02-02 Jonn Zamora [facility] 01:33:00 Medical Branch GLYCOSYLATED HEMOGLOBIN 2020-02-02 Juan Parr [facility] (A1C) 01:33:00 Medical Branch PROTHROMBIN TIME / INR 2020-02-02 Jonn Zamora [facility] 01:33:00 Medical Branch ACTIVATED PARTIAL 2020-02-02 Jonn Zamora [facility] THRMPLAS MATA 01:33:00 Medical Branch N-TERMINAL PRO-BNP 2020-02-02 Eliud Mathew [facility] 01:33:00 Medical Branch EKG-12 LEAD 2020-02-02 Jonn Zamora [facility] exas 01:32:47 Medical Branch NOTICE OF PRIVACY 2020-02-02 Doctor Unassigned, No [facility] PRACTICES 01:14:06 Name Medical Branch CONSENT/REFUSAL FOR 2020-02-02 Doctor Unassigned, No [facility] DIAGNOSIS AND TREATMENT 01:13:01 Name Medical Branch NOTICE OF PRIVACY 2020-01-29 Doctor Unassigned, No [facility] PRACTICES 14:14:48 Name Medical Branch CONSENT/REFUSAL FOR 2020-01-29 Doctor Unassigned, No [facility] DIAGNOSIS AND TREATMENT 14:14:[address] CHEST PULMONARY 2019-12-18 Rebecca Vuong [facility] ANGIOGRAM 04:18:16 Medical Branch TROPONIN I 2019-12-18 Rebecca Vuong [facility] 03:59:00 Medical Branch XR CHEST 1 VW COVID 2019-12-18 Rebecca Vuong [facility] 02:32:02 Medical Branch LIPASE 2019-12-18 Rebecca Vuong [facility] 01:27:00 Medical Branch TROPONIN I 2019-12-18 Rebecca Vuong [facility] 01:27:00 Medical Branch COMP. METABOLIC PANEL 2019-12-18 Rebecca Vuong [facility] ([id number]) 01:27:00 Medical Branch CBC WITH DIFFERENTIAL 2019-12-18 Rebecca Vuong [facility] 01:27:00 Medical Branch EKG-12 LEAD 2019-12-18 Helen Oreilly [facility] 01:18:23 Medical Branch Plan of Care Planned Activity Planned Date Details Comments Source Future Scheduled 2022-10-23 Hepatitis C screening [facility] Test 17:25:14 (procedure) [code = 538708124] Future Scheduled 2022-10-23 COLONOSCOPY SCREENING [facility] Test 17:25:14 [code = COLONOSCOPY SCREENING] Future Scheduled 2022-10-23 COVID-19 VACCINE (4 - Me [facility] Test 17:25:14 Booster for Pfizer series) [code = COVID-19 VACCINE (4 - Booster for Pfizer series)] Future Scheduled 2022-10-23 [facility]ACCINE [facility] 17:25:14 [code = INFLUENZA VACCINE] Future Scheduled 2021-07-22 DIABETES: RETINAL EYE [facility] Test 19:10:17 EXAM [code = DIABETES: RETINAL EYE EXAM] Future Scheduled 2021-07-22 [facility]ABETIC [facility]OT [facility] Test 19:10:17 [code = DIABETIC FOOT EXAM] Future Scheduled 2021-07-22 [facility] Test 19:10:17 [code = URINE MICROALBUMIN] Future Scheduled 2021-07-22 Hepatitis C screening [facility] Test 19:10:17 (procedure) [code = 095696444] Future Scheduled 2021-07-22 INFLUENZA VACCINE [facility] Test 19:10:17 [code = INFLUENZA VACCINE] Encounters Start End Encounter Admission Attending Care Care Encounter Source Date/Time Date/Time Type Type Clinicians Facility Department ID 2021-04-11 Emergency [facility] [id number] Univers 12:24:10 ity [facility] 2021-04-09 Emergency [facility] [id number] [facility] 2021-04-09 Emergency [facility] [id number] Univers 13:17[facility] 2021-04-09 Emergency [facility] [id number] Univers 05:23[facility] 2021-09-10 2021-09-10 Outpatient [facility] [id number] [place] 00:00:00 00:00:00 KESAVAN [address] 2021-09-06 2021-09-06 Outpatient [facility] [id number] [place] 00:00:00 00:00:[address] 2021-07-21 2021-07-22 Emergency M[place]UR 1.2.840.1 [id number] [place] 00:00:00 00:00:00 ATH MARCO, 06276.1.1 [address] DISNI 3.430.2.7 st .3.304652 .8 2021-07-21 2021-07-21 Surgery Oliveira, 1.2.840.1 [id number] Methodi 17:30:00 18:30:00 Jerman Sloan [address].1.[address] 3.430.2.7 Hospit a .3.217136 l .8 2021-07-21 2021-07-21 Office Jose Miguel, 1.2.840.1 [id number] Methodi 08:20:04 11:24:54 Visit Yoana [address]9412.1.[address] 3.430.2.7 Hospit a .3.231644 l .8 2021-07-21 2021-07-21 Travel 1.2.840.1 1.2.062.758 [id number] Methodi 00:00:00 00:00:[address] 3.430.2.7 0.2.7.3.698 Ho spita .3.699450 084.8 l .8 2021-07-21 2021-07-21 Outpatient [facility] [id number] [place] 00:00:00 00:00:[address] 2020-09-21 2020-09-21 Emergency [facility] 1.2.557.512 [id number] Univers 20:01:00 22:54:00 Skyler Pluido 350.1.13.10 i ty of [place] 4.2.7.2.686 [facility] [id number] [place] [id number] [place] 2020-09-21 2020-09-21 Telephone [facility] 1.2.322.598 [id number] Univers 00:00:00 00:00:00 Zarina Pulido 350.1.13.10 i ty of [place] 4.2.7.2.686 [facility] [id number] Id dical [facility] 2020-08-11 2020-08-11 Outpatient Lourdes WOO [facility] [id number] Univers 16:00:00 16:00:00 DEISY wang [facility] 2020-07-21 2020-07-21 Outpatient R CHILO [facility] [id number] Univers 13:40:00 13:40:00 DEISY ity [facility] 2020-03-26 2020-03-[address] [facility] 1.2.840.114 [id number] Univers 12:34:25 12:54:25 Visit Zarina Pulido 350.1.13.10 i [place]2.7.2.[place] [phone] Id dical [address] 2020-03-26 2020-03-[address] [facility] 1.2.840.114 [id number] 12:34:25 12:54:25 Visit Zarina Pulido 350.1.13.10 [place] 4.2.7.2.686 Professio [phone] nal [address] [place] [address] 2020-03-26 2020-03-26 Outpatient R ZARINA REYES [facility] 10 [id number] Univers 12:40:00 12:40:00 ZARINA REYES i ty of [facility] 2020-03-26 2020-03-26 Orders Doctor LARA 1.2.840.114 [id number] Univers 00:00:00 00:00:00 Only Unassigned, MAU 350.1.13.10 ity of [place] [facility] 4.2.7.2.686 Jimmy as [phone] [address] 2020-02-27 2020-02-27 Mikaela Harris 1.2.840.114 [id number] Univers 00:00:00 00:00:00 (Out) Premal G Mau 350.1.13.10 i ty of Hospital 4.2.7.2.686 Jimmy as [phone] [facility] 093 [place] 2020-02-18 2020-02-18 Orders Doctor MARCO 1.2.840.114 [id number] Univers 00:00:00 00:00:00 Only Unassigned, MAU 350.1.13.10 ity of [place] [facility] 4.2.7.2.686 Jimmy as [phone] [facility] 009 [place] 2020-02-03 2020-02-03 Orders Doctor MARCO 1.2.840.114 [id number] Univers 00:00:00 00:00:00 Only Unassigned, MAU 350.1.13.10 ity of [place] [facility] 4.2.7.2.686 Jimmy as [id number] [address] 2020-02-01 2020-02-02 Emergency Jonn Zamora 1.2.840 .114 [id number] Univers 20:17:00 17:00:00 Priscilla Myrick 350.1.13.10 [facility] 4.2.7.2.686 [place] [phone] [address] 2020-02-02 2020-02-02 Telephone MARCO Luna 1.2.755.841 [id number] Univers 00:00:00 00:00:00 [place] MAU 350.1.13.10 it y of HOSPITAL 4.2.7.2.686 Jimmy as [phone] [address] 2020-01-29 2020-01-29 [facility] 1.2.840.114 [id number] Univers 09:30:00 10:33:00 Abigail Pulido 350.1.13.10 ity of [place] 4.2.7.2.686 [facility] [phone] [address] 2019-12-17 2019-12-[address] [facility] 1.2.870.410 [id number] Univers 20:28:49 01:24:00 Rebecca Pulido 350.1.13.10 i ty of [place] 4.2.7.2.686 [place] [facility] [phone] [address] 2019-12-17 2019-12-17 Telephone Андрей Dimas [facility] 1.2.840.114 [id number] Univers 00:00:00 00:00:00 [facility] 350.1.13.10 i ty of [place] 4.2.7.2.686 Jimmy as Professio [phone] Id dical nal [address] [place] [address] 2019-12-15 2019-12-15 Outpatient Lourdes BLEDSOE [facility] [id number] Univers 14:00:00 14:00:00 [facility] 2019-12-15 2019-12-15 Urgent Pob1, Acute Care Clinic [facility] 1. 2.840.114 [id number] Univers 13:31:02 13:51:02 Hi [facility] 350.1.13.10 itvangie [facility] 4.2.7.2.686 Jimmy as Professio [phone] Id dical nal [address] Results Test Description Test Time Test Comments Results Result Comments Source POC glucose 2021-07-22 17:14:36 Test Item Value Reference Range Interpretation Comme nts POC glucose (test code = 107 mg/dL 65-99 H Ope rator Name: Sri 11098-3) AlliyahDedelmira I D: [id number] able: RN Notified Lab Interpretation (test code = Abnormal 94319-6) [facility] 12 [id number] 01:56:14 Test Item Value Reference Range Interpretation Comments Ventricular rate (test code = 253) Atrial rate (test code = 255) SC interval (test code = 266) QRSD interval (test code = 260) QT interval (test code = 264) QTC interval (test code = 265) P axis 1 (test code = 267) QRS axis 1 (test code = 268) T wave axis (test code = 270) EKG impression (test Normal sinus code = 273) rhythm-Normal ECG- [facility] and [id number] 19:56:00 Test Item Value Reference Range Interpretation Comments ABO grouping (test code = 883-9) A Rh type (test code = 89338-6) POS Antibody screen (gel) (test code = NEG 890-4) Islam VrluyioiIWLU-CuP-1 (COVID-19) RNA [Presence] in Respiratory specimen by YANICK with probe [id number] 13:45:46 Test Item Value Reference Range Interpretation Comments SARS-CoV-2 (COVID-19) RNA Not detected Not-Detected [Presence] in Respiratory specimen by YANICK with probe detection (test code = 30014-8) Whether patient is employed in a healthcare setting (test code = 01916-0) Whether the patient has symptoms related to condition of interest (test code = 61345-9) Patient was hospitalized because of this condition (test code = 35986-0) Whether the patient was admitted to intensive care unit (ICU) for condition of interest (test code = 52253-2) Whether patient resides in a congregate care setting (test code = 73583-8) [facility] [id number] 03:53:55 Test Item Value Reference Range Interpretation Comments TROPONIN I (test 0.001 ng/mL See_Comment [Automated code = 2136773236) message] The system which generated this result [...] ? Lab Interpretation Normal (test code = 31649-6) [facility] [id number] 01:49:30 Test Item Value Reference Range Interpretation Comments TROPONIN I (test 0.001 ng/mL See_Comment [Automated code = 1664896300) message] The system which generated this result [...] ? Lab Interpretation Normal (test code = 24051-7) [facility] NOW RAPID TESTING)2020-09-22 01:42:07 Test Item Value Reference Range Interpretation Comments SARS-CoV-2 Rapid ID NOW Not Detected Not Detected (test code = 70931-8) LORIE (test code = LORIE) ID NOW COVID-19 Assay is an isothermal nucleic acid amplification test intended for the qualitative detection of nucleic acid from SARS-CoV-2 viral RNA in nasopharyngeal (SHAKE OUT WORKER) specimens. It is used under Emergency Use [...] indicated. Lab Interpretation Normal (test code = 43229-6) [facility] Metabolic Panel (NA, K, CL, CO2, GLUCOSE, BUN, CREATININE, CA)2020-09-22 01:38:28 Test Item Value Reference Range Interpretation Comments NA (test code = 142 mmol/L 135-145 7046961463) K (test code = 3.6 mmol/L 3.5-5.0 2513259716) CL (test code = 101 mmol/L 98-108 9941924943) CO2 TOTAL (test code = 29 mmol/L 23-31 2543871712) AGAP (test code = 2-16 6707827676) BUN (test code = 20 mg/dL 7-23 9479282784) GLUCOSE (test code = 166 mg/dL 70-110 H 9479274387) CREATININE (test code = 1.02 mg/dL 0.60-1.25 1275474548) CALCIUM (test code = 9.7 mg/dL 8.6-10.6 9068073534) eGFR (test code = mL/min/1.73m2 8411113367) LORIE (test code = LORIE) Association of [...] tests). Lab Interpretation Abnormal (test code = 57379-0) [facility] (ALB, T.PRO, BILI T, BU/BC, ALT, AST, ALK PHOS)2020-09-22 01:38:28 Test Item Value Reference Range Interpretation Comments TOTAL BILI (test code = 5939602834) 0.7 mg/dL 0.1-1.1 BILI UNCON (test code = 7771270291) 0.6 mg/dL 0.1-1.1 BILI CONJ (test code = 1929719541) 0.0 mg/dL 0.0-0.3 T PROTEIN (test code = 6889032857) 7.2 g/dL 6.3-8.2 ALBUMIN (test code = 3365739895) 4.7 g/dL 3.5-5.0 ALK PHOS (test code = 4497326344) 51 U/L 34-122 ALTv (test code = 1742-6) 46 U/L 5-50 AST(SGOT) (test code = 0498565512) 31 U/L 13-40 Lab Interpretation (test code = Normal 06273-1) [facility] Center[facility] [id number] 01:38:28 Test Item Value Reference Range Interpretation Comments LIPASE (test code = 5695780998) 81 U/L 0-220 Lab Interpretation (test code = Normal 79630-2) [facility]era[facility]TT2021-[facility]-13 01:37:48 Test Item Value Reference Range Interpretation Comments APTT Patient (test See_Comment [Automat ed code = 3173-2) message] The system which generated this result transmitted reference range : 23 - 38 Seconds . The reference range was not used to interpr et this result as normal/abnormal . LORIE (test code = LORIE) The [facility] patient population mean normal value for aPTT is 30 seconds. Lab Interpretation Normal (test code = 02473-3) [facility] CenterProthrombin Time (PT) / [id number] 01:35:08 Test Item Value Reference Range Interpretation [...] tions. Lab Interpretation (test Normal code = 52666-2) [facility] with [id number] 01:19:45 Test Item Value Reference Range Interpretation Comments WBC (test code = See_Comment [Automated 7490-2) message] The sy stem which generated this result transmitted reference range : 4.20 - 10.70 10*3/?L. The reference range was not used to interpret this result as normal/abnormal . RBC (test code = See_Comment [Automated 659-8) message] The sy stem which generated this [...] RDW-SD (test code = 39.4 fL 38.5-51.6 73794-0) RDW-CV (test code = 12.8 % 12.1-15.4 788-0) PLT (test code = See_Comment [Automated 777-3) message] The sy stem which generated this result transmitted reference range : 150 - 328 10*3/ ?L. The reference r luda was not used to interpret this result as normal/abnormal . MPV (test code = 9.4 fL 9.8-13.0 L 33236-9) NRBC/100 WBC (test See_Comment [Automat ed code = 4434805249) message] The system which generated this result transmitted reference range : 0.0 - 10.0 /100 WBCs. The refer ence range was not u sed to interpret th is result as normal/abnormal . NRBC x10^3 (test code <0.01 See_Comment [Auto mated = 8916292007) message] The s ystem which generated this result transmitted reference range : 10*3/?L. The reference range was not used to interpret this result as normal/abnormal . GRAN MAT (NEUT) % 77.8 % (test code = 770-8) IMM GRAN % (test code 0.30 % = 9910506611) LYMPH % (test code = 16.5 % 736-9) MONO % (test code = 4.3 % 5905-5) EOS % (test code = 0.7 % 713-8) BASO % (test code = 0.4 % 706-2) GRAN MAT x10^3(ANC) 7.11 10*3/uL 1.99-6.95 H (test code = 7698285606) IMM GRAN x10^3 (test 0.03 10*3/uL 0.00-0.06 code = 2141228063) LYMPH x10^3 (test code 1.51 10*3/uL 1.09-3.23 = 731-0) MONO x10^3 (test code 0.39 10*3/uL 0.36-1.02 = 742-7) EOS x10^3 (test code = 0.06 10*3/uL 0.06-0.53 711-2) BASO x10^3 (test code 0.04 10*3/uL 0.01-0.09 = 704-7) Lab Interpretation Abnormal (test code = 50380-3) [facility] Center[facility]AL [id number] 13:53:00 Test Item Value Reference Range Interpretation Comments NT-proBNP (test code 12 pg/mL See_Comment [Autom ated = 9429879536) message] The system which generated this result transmitted reference range : <=125. The reference range was not used to interpret this result as normal/abnormal . LORIE (test code = LORIE) Biotin has been reported to cause a negative bias, interpret results relative to patient's use of biotin. Lab Interpretation Normal (test code = 03922-6) [facility]ATED)2020-02-02 10:13:00 Test Item Value Reference Range Interpretation Comments POCT GLU (test code = 9473509090) 113 mg/dL 70-110 H Lab Interpretation (test code = Abnormal 45493-9) [facility] Center[facility]OSYLATED HEMOGLOBIN (A1C)2020-02-02 09:25:00 Test Item Value Reference Range Interpretation Comments HGB A1C (test code = 6.2 % 4-6 H 4548-4) LORIE (test code = LORIE) %A1C (NGSP) Interpretation (ADA)4.8-5.6 ? ? Normal or (Non-Diabetic Range)5.7-6.4 ? ? Increased Risk (Pre-Diabetic)>6.5 ?Diabetes Indicated Lab Interpretation Abnormal (test code = 77391-9) [facility] CHEST PULMONARY [id number] 05:07:11 1. ?Acute pulmonary embolism in the [...] reviewed this study and agree withthe above report.[facility] NOW RAPID TESTING)2020-02-02 02:22:00 Test Item Value Reference Range Interpretation Comments SARS-CoV-2 Rapid ID NOW Not Detected Not Detected (test code = 84864-1) LORIE (test code = LORIE) ID NOW COVID-19 Assay is an isothermal nucleic acid amplification test intended for the qualitative detection of nucleic acid from SARS-CoV-2 viral RNA in nasopharyngeal ([employer] WORKER) specimens. It is used under Emergency Use [...] indicated. Lab Interpretation Normal (test code = 01220-7) [facility]TR[facility] [id number] 02:21:00 Test Item Value Reference Range Interpretation Comments TROPONIN I (test <0.012 See_Comment [Automated code = 0103972512) message] The system which generated this result [...] ? Lab Interpretation Normal (test code = 16581-8) [facility]OLIC PANEL ([id number])2020-02-02 01:59:00 Test Item Value Reference Range Interpretation Comments NA (test code = 140 mmol/L 135-145 8134304946) K (test code = 3.6 mmol/L 3.5-5 0667247510) CL (test code = 104 mmol/L 98-108 1178412290) CO2 TOTAL (test code = 27 mmol/L 23-31 2489468023) AGAP (test code = 2-16 3997620836) BUN (test code = 21 mg/dL 7-23 1371643711) GLUCOSE (test code = 177 mg/dL 70-110 H 9472071108) CREATININE (test code = 0.84 mg/dL 0.6-1.25 1932950467) TOTAL BILI (test code = 0.5 mg/dL 0.1-1.1 7923999593) CALCIUM (test code = 9.8 mg/dL 8.6-10.6 9218436236) T PROTEIN (test code = 7.5 g/dL 6.3-8.2 1140072626) ALBUMIN (test code = 4.7 g/dL 3.5-5 1911437450) ALK PHOS (test code = 54 U/L 34-122 4642161947) ALTv (test code = 60 U/L 5-50 H 1742-6) AST(SGOT) (test code = 41 U/L 13-40 H 0142545008) eGFR Calculation mL/min/1.73m2 (Non-) (test code = 0737144998) eGFR Calculation mL/min/1.73m2 () (test code = 7028581115) LORIE (test code = LORIE) Association of [...] tests). Lab Interpretation Abnormal (test code = 19929-0) [facility]eraPTT2020-08-23 01:58:00 Test Item Value Reference Range Interpretation Comments APTT Patient (test See_Comment [Automat ed code = 3173-2) message] The system which generated this result transmitted reference range : 23 - 38 Seconds . The reference range was not used to interpr et this result as normal/abnormal . LORIE (test code = LORIE) The [facility] patient population mean normal value for aPTT is 30 seconds. Lab Interpretation Normal (test code = 35995-2) [facility] CenterLIPASE, [id number] 01:58:00 Test Item Value Reference Range Interpretation Comments LIPASE (test code = 3233926198) 73 U/L 0-220 Lab Interpretation (test code = Normal 89104-3) [facility] CenterPROTHROMBIN TIME / [id number] 01:55:00 Test Item Value Reference Range Interpretation [...] tions. Lab Interpretation (test Abnormal code = 79746-1) [facility] CenterXR CHEST 1 [id number] 01:51:51 No acute intrathoracic abnormality.PROCEDURE: XR CHEST 1 VW CLINICAL INDICATION: chest pain COMPARISON: None FINDINGS: The lungs are clear. No pleural effusion or pneumothorax is seen. The cardiomediastinal silhouette is normal. No acute bony abnormality. [facility], Radiant Results Inft User - 02/01/2020 8:53 PM CDTPROCEDURE: XR CHEST 1 VWCLINICAL INDICATION: chest pain COMPARISON: NoneFINDINGS:The lungs are clear. No pleural effusion or pneumothorax is seen. The cardiomediastinal silhouette is normal. No acute bony abnormality.IMPRESSIONNo acute intrathoracic abnormality.[facility] CenterCBC WITH [id number] 01:43:00 Test Item Value Reference Range Interpretation Comments WBC (test code = See_Comment [Automated 6690-2) message] The sy stem which generated this [...] RDW-SD (test code = 40.0 fL 38.5-51.6 31507-4) RDW-CV (test code = 13.0 % 12.1-15.4 788-0) PLT (test code = See_Comment [Automated 777-3) message] The sy stem which generated this result transmitted reference range : 150 - 328 10*3/ ?L. The reference r luda was not used to interpret this result as normal/abnormal . MPV (test code = 9.5 fL 9.8-13 L 10001-3) NRBC/100 WBC (test See_Comment [Automat ed code = 5200713381) message] The system which generated this result transmitted reference range : 0.0 - 10.0 /100 WBCs. The refer ence range was not u sed to interpret th is result as normal/abnormal . NRBC x10^3 (test code <0.01 See_Comment [Auto mated = 5846514871) message] The s ystem which generated this result transmitted reference range : 10*3/?L. The reference range was not used to interpret this result as normal/abnormal . GRAN MAT (NEUT) % 71.4 % (test code = 770-8) IMM GRAN % (test code 0.30 % = 7666839738) LYMPH % (test code = 21.0 % 736-9) MONO % (test code = 4.3 % 5905-5) EOS % (test code = 2.7 % 713-8) BASO % (test code = 0.3 % 706-2) GRAN MAT x10^3(ANC) 6.56 10*3/uL 1.99-6.95 (test code = 2317574641) IMM GRAN x10^3 (test 0.03 10*3/uL 0-0.06 code = 2258443587) LYMPH x10^3 (test code 1.93 10*3/uL 1.09-3.23 = 731-0) MONO x10^3 (test code 0.40 10*3/uL 0.36-1.02 = 742-7) EOS x10^3 (test code = 0.25 10*3/uL 0.06-0.53 711-2) BASO x10^3 (test code 0.03 10*3/uL 0.01-0.09 = 704-7) Lab Interpretation Abnormal (test code = 33734-0) [id number] 05:24[facility]00 Test Item Value Reference Range Interpretation Comments TROPONIN I (test <0.012 See_Comment [Automated code = 3680298847) message] The system which generated this result [...] ? Lab Interpretation Normal (test code = 24821-0) [facility] CenterCT CHEST PULMONARY [id number] 04:33:08 1. ?Bilateral peripherally located ground glass opacities consistent withpatient's history of COVID19. 2. ?No acute pulmonary embolism. 3. ?Splenomegaly and gynecomastia. Preliminary Report Dictated by Resident: Dayne Dumont ?MD Cheikh., have reviewed this study and agree with [...] reviewed this study and agree with theabove report.[facility]ST 1 VW COVID 2019-12-18 02:46:20 Left [...] reviewed this study and agree with theabove report.[facility] CenterTROPOCHRIS [id number] 02:14:00 Test Item Value Reference Range Interpretation Comments TROPONIN I (test <0.012 See_Comment [Automated code = 6043952107) message] The system which generated this result [...] ? Lab Interpretation Normal (test code = 32652-3) [facility] CenterCOM. METABOLIC PANEL (47424)2019-12-18 01:56:00 Test Item Value Reference Range Interpretation Comments NA (test code = 142 mmol/L 135-145 4909725926) K (test code = 3.3 mmol/L 3.5-5 L 3877111738) CL (test code = 105 mmol/L 98-108 3671235234) CO2 TOTAL (test code = 27 mmol/L 23-31 4992208057) AGAP (test code = 2-16 8142488815) BUN (test code = 18 mg/dL 7-23 5726737298) GLUCOSE (test code = 139 mg/dL 70-110 H 3747905504) CREATININE (test code = 0.80 mg/dL 0.6-1.25 7818799865) TOTAL BILI (test code = 1.0 mg/dL 0.1-1.4 5823399422) CALCIUM (test code = 9.8 mg/dL 8.6-10.6 5209491938) T PROTEIN (test code = 8.2 g/dL 6.3-8.2 2692328325) ALBUMIN (test code = 4.9 g/dL 3.5-5 3013908838) ALK PHOS (test code = 71 U/L 34-122 8775128642) ALTv (test code = 92 U/L 5-50 H 1742-6) AST(SGOT) (test code = 87 U/L 13-40 H 4949555043) eGFR Calculation mL/min/1.73m2 (Non-) (test code = 4567582193) eGFR Calculation mL/min/1.73m2 () (test code = 8601130102) LORIE (test code = LORIE) Association of [...] tests). Lab Interpretation Abnormal (test code = 73819-2) [facility] CenterLIPASE2020-07-08 01:56:00 Test Item Value Reference Range Interpretation Comments LIPASE (test code = 5246142492) 641 U/L 0-220 H Lab Interpretation (test code = Abnormal 59562-7) [facility] WITH [id number] 01:41:00 Test Item Value Reference Range Interpretation Comments WBC (test code = See_Comment L [Automated 1079-2) message] The sy stem which generated this result transmitted reference range : 4.20 - 10.70 10*3/?L. The reference range was not used to interpret this result as normal/abnormal . RBC (test code = See_Comment [Automated 477-8) message] The sy stem which generated this [...] RDW-SD (test code = 39.1 fL 38.5-51.6 42455-1) RDW-CV (test code = 13.2 % 12.1-15.4 788-0) PLT (test code = See_Comment [Automated 777-3) message] The sy stem which generated this result transmitted reference range : 150 - 328 10*3/ ?L. The reference r luda was not used to interpret this result as normal/abnormal . MPV (test code = 10.1 fL 9.8-13 75889-2) NRBC/100 WBC (test See_Comment [Automat ed code = 2590050054) message] The system which generated this result transmitted reference range : 0.0 - 10.0 /100 WBCs. The refer ence range was not u sed to interpret th is result as normal/abnormal . NRBC x10^3 (test code <0.01 See_Comment [Auto mated = 5540658786) message] The s ystem which generated this result transmitted reference range : 10*3/?L. The reference range was not used to interpret this result as normal/abnormal . GRAN MAT (NEUT) % 52.0 % (test code = 770-8) IMM GRAN % (test code 0.30 % = 6452441958) LYMPH % (test code = 38.5 % 736-9) MONO % (test code = 6.6 % 5905-5) EOS % (test code = 2.3 % 713-8) BASO % (test code = 0.3 % 706-2) GRAN MAT x10^3(ANC) 2.06 10*3/uL 1.99-6.95 (test code = 8875115047) IMM GRAN x10^3 (test <0.03 0-0.06 code = 0716739980) LYMPH x10^3 (test code 1.52 10*3/uL 1.09-3.23 = 731-0) MONO x10^3 (test code 0.26 10*3/uL 0.36-1.02 L = 742-7) EOS x10^3 (test code = 0.09 10*3/uL 0.06-0.53 711-2) BASO x10^3 (test code <0.03 0.01-0.09 = 704-7) Lab Interpretation Abnormal (test code = 43448-7) [facility] CenterPLATELET [id number] 11:06:00 Test Item Value Reference Range Interpretation Comments PLATELET COUNT (BEAKER) (test 242 K/CU MM 150-450 code = 756) PLATELET [id number] 11:02:00 Test Item Value Reference Range Interpretation Comments PLATELET COUNT (BEAKER) (test 200 K/CU MM 150-450 code = 756)
--- NOTE | 2022-10-23 18:20 | RAD REPORT ---
EXAM DESCRIPTION: RAD - Chest Single View - 10/23/2022 6:05 pm CLINICAL HISTORY: Palpitations;SOB Chest pain. COMPARISON: Chest Single View dated 01/24/2022; Chest Pa And Lat (2 Views) dated 02/23/2016; CHEST PA AND LAT 2 VIEW dated 10/25/2011; CHEST SINGLE VIEW dated 02/02/2010 FINDINGS: Portable technique limits examination quality. The lungs are grossly clear. The heart is normal in size. No displaced fractures. IMPRESSION: No acute intrathoracic process suspected.
[2022-10-23 18:21] LABS: Absolute Lymphocytes (CBC) 1.8 K/uL (0.7-4.9); Hematocrit 44.3 % (39.6-49.0); Lymphocytes % 22.7 % (15.3-44.8); MPV 7.2 fL (7.6-11.3); RBC Red Blood Cell Count 5.27 M/uL (4.33-5.43)
[2022-10-23 18:26] LABS: Protime INR 1.37
[2022-10-23 18:27] LABS: Specific Gravity 1.028 (1.005-1.030); Urine Bacteria <20 /HPF (<20); Urine Bilirubin NEGATIVE (Negative); Urine Blood Negative (Negative); Urine Clarity Clear (Clear); Urine Color Yellow (Yellow); Urine Glucose NEGATIVE (Negative); Urine Mucus 1+ /HPF (None Seen); Urine Protein TRACE (Negative); Urine RBC <5 /HPF (None Seen); Urine Urobilinogen 1+ (Normal); Urine pH 6.5 (5.0-7.0)
[2022-10-23] MEDS ORDERED: NA CHLORIDE 0.9% 1,000 ML ONE (18:31)
[2022-10-23 18:52] LABS: Albumin 3.9 g/dL (3.4-5.0); Bilirubin Direct 0.1 mg/dL (0-0.2); Bilirubin Indirect, Calculated 0.4 mg/dL (0.2-0.8); Bilirubin Total 0.5 mg/dL (0.2-1.0); Magnesium 2.3 mg/dL (1.6-2.4); Potassium 3.4 mEq/L (3.5-5.1); Protein, Total 7.5 g/dL (6.4-8.2); Troponin High Sensitivity 3.5 pg/mL (<58.9)
[2022-10-23 18:52] LABS: Barbiturates NEGATIVE (NEGATIVE); Benzodiazepines NEGATIVE (NEGATIVE); Cocaine NEGATIVE (NEGATIVE); METHAMPHETAM NEGATIVE (NEGATIVE); Methadone NEGATIVE (NEGATIVE); Opiates NEGATIVE (NEGATIVE); Phencyclidine NEGATIVE (NEGATIVE); THC Cannibis NEGATIVE (NEGATIVE)
--- NOTE | 2022-10-23 18:53 | RAD REPORT ---
EXAM DESCRIPTION: CT - Head Brain Wo Cont - 10/23/2022 6:47 pm CLINICAL HISTORY: DIZZINESS Headache, drowsiness COMPARISON: SINUS W O CONTRAST dated 11/01/2011 TECHNIQUE: All CT scans are performed using dose optimization technique as appropriate and may inclu de automated exposure control or mA/KV adjustment according to patient size. FINDINGS: No intracranial hemorrhage, hydrocephalus or extra-axial fluid collection.No areas of brai n edema or evidence of midline shift. The paranasal sinuses and mastoids are clear. The calvarium is intact. IMPRESSION: No acute intracranial abnormality.
[2022-10-23] MEDS ORDERED: MECLIZINE HCL 12.5 MG TAB ONE (19:15)
[2022-10-23] MEDS ORDERED: POTASSIUM 25 MEQ EFFERV TAB ONE (19:15)
--- NOTE | 2022-10-23 19:50 | ER ---
Nurse's Notes [facility] Name: Leonid Polk Age: 47 yrs Sex: Male : 1975 Arrival Date: 10/23/2022 Time: 17:22 Bed 8 Private MD: Diagnosis: Dizziness and giddiness;Palpitations;Headache Presentation: 10/23 17:28 Chief complaint: Fatigue, sweating, malaise, headache, and congestion x 3 days. hb Coronavirus screen: Client presents with at least one sign or symptom that may indicate coronavirus-19. Provider contacted for isolation considerations. Ebola Screen: No symptoms or risks identified at this time. Initial Sepsis Screen: Does the patient meet any 2 criteria? HR > 90 bpm. No. Patient's initial sepsis screen is negative. Does the patient have a suspected source of infection? No. Patient's initial sepsis screen is negative. Risk Assessment: Do you want to hurt yourself or someone else? Patient reports no desire to harm self or others. Onset of symptoms was October 21, 2022. 17:28 Method Of Arrival: Ambulatory 17:28 Acuity: MARY 3 hb Triage Assessment: 17:33 General: Appears in no apparent distress. Behavior is calm, cooperative. Pain: Denies hb pain. Neuro: Level of Consciousness is awake, alert, obeys commands, Oriented to person, place, time, situation. Cardiovascular: Patient's skin is warm and dry. Respiratory: Respiratory effort is even, unlabored, Respiratory pattern is regular, symmetrical. Historical: - Allergies: 17:31 No Known Allergies; hb - Home Meds: 17:31 Diovan Oral once daily [Active]; levothyroxine oral [Active]; Nexium Oral [Active]; hb Ozempic subcutaneous [Active]; Metoprolol Tartrate Oral [Active]; - PMHx: 17:31 DVT; GERD; Hypertensive disorder; Thyroid problem; hb - Immunization history:: Adult Immunizations up to date. - Social history:: Smoking status: Patient denies any tobacco usage or history of. Screenin:31 [facility] ED Fall Risk Assessment (Adult) History of falling in the last 3 months, ld1 including since admission No falls in past 3 months (0 pts). Abuse screen: Denies threats or abuse. Denies injuries from another. Nutritional screening: No deficits noted. Tuberculosis screening: No symptoms or risk factors identified. Assessment: 18:31 Reassessment: See triage assessment. ld1 19:13 General: Appears in no apparent distress. comfortable, well groomed, well developed, pf1 Behavior is calm, cooperative, appropriate for age, quiet. Pain: Complains of pain in frontal headache pain of 4,onset 3 days Pain currently is 4 out of 10 on a pain scale. Neuro: Level of Consciousness is awake, alert, obeys commands, Oriented to person, place, time, situation, Reports dizziness, headache frontal area. Cardiovascular: No deficits noted. Capillary refill < 3 seconds Patient's skin is warm and dry. Respiratory: No deficits noted. Airway is patent Trachea midline Respiratory effort is even, unlabored, Respiratory pattern is regular, symmetrical, Breath sounds are clear bilaterally. GI: No deficits noted. Abdomen is round non-distended. : No deficits noted. No signs and/or symptoms were reported regarding the genitourinary system. EENT: No deficits noted. No signs and/or symptoms were reported regarding the EENT system. Derm: No deficits noted. No signs and/or symptoms reported regarding the dermatologic system. Musculoskeletal: No deficits noted. No signs and/or symptoms reported regarding the musculoskeletal system. Vital Signs: 17:28 BP 146 / 93; Pulse 106; Resp 18; Temp 98.5(O); Pulse Ox 100% on R/A; Weight 131.54 kg; hb Height 6 ft. 3 in. ; Pain 0/10; 18:31 BP 135 / 98; Pulse 95; Resp 18; Pulse Ox 97% on R/A; ld1 19:15 BP 126 / 92; Pulse 90; Resp 18; Pulse Ox 98% on R/A; Pain 4/10; pf1 17:28 Body Mass Index 36.25 (131.54 kg, 190.5 cm) hb 17:28 Pain Scale: Adult hb 19:15 Pain Scale: Adult pf1 ED Course: 17:24 Patient arrived in ED. ts1 17:29 Triage completed. hb 17:30 [place] Shaffer PA is PHCP. cp 17:30 Norbert Gates MD is Attending Physician. cp 17:33 Arm band placed on. hb 18:07 XRAY Chest (1 view) In Process Unspecified. EDMS 18:15 Urinalysis W/Microscopic Sent. ld1 18:15 Inserted saline lock: 20 gauge in right antecubital area, using aseptic technique. eh3 Blood collected. 18:31 Brenda Blair, RN is Primary Nurse. ld1 18:31 Patient has correct armband on for positive identification. Placed in gown. Bed in low ld1 position. Call light in reach. Side rails up X2. night monitor on. Pulse ox on. NIBP on. Door closed. Noise minimized. Warm blanket given. 18:31 TSH Sent. ld1 18:31 UDS Sent. ld1 18:31 No provider procedures requiring assistance completed. ld1 18:49 CT Head Brain wo Cont In Process Unspecified. EDMS 20:15 IV discontinued, intact, bleeding controlled, No redness/swelling at site. Pressure pf1 dressing applied. Administered Medications: 18:31 Drug: NS 0.9% IV 1000 ml Route: IV; Rate: 1 bolus; Site: right antecubital; ld1 19:13 Follow up: Response: No adverse reaction; Marked relief of symptoms pf1 20:00 Follow up: Response: No adverse reaction; Marked relief of symptoms; IV Status: pf1 Completed infusion; IV Intake: 1000ml 19:10 Drug: Meclizine PO 25 mg Route: PO; pf1 20:00 Follow up: Response: No adverse reaction; Marked relief of symptoms pf1 19:10 Drug: Potassium PO Effervescent Tablet 25 mEq Route: PO; pf1 20:00 Follow up: Response: No adverse reaction; Marked relief of symptoms pf1 Medication: 18:31 VIS not applicable for this client. ld1 Intake: 20:00 IV: 1000ml; Total: 1000ml. pf1 Outcome: 19:50 Discharge ordered by MD. cp 20:17 Discharged to home ambulatory, with family. pf1 20:17 Condition: improved 20:17 Discharge instructions given to patient, Instructed on discharge instructions, follow up and referral plans. Demonstrated understanding of instructions, follow-up care, medications, Prescriptions given X 2. 20:17 Patient left the ED. pf1 Signatures: Dispatcher [employer] EDMS [place] Shaffer PA PA cp Baxter, Heather, RN RN Brenda Blair RN RN ld1 Helen Shin RN RN [facility] Eloisa Fatima RN RN pf1 Rebecca Tomas PAS PAS ts1
--- NOTE | 2022-10-23 19:50 | EDPHYS ---
Physician Documentation [facility] Name: Leonid Polk Age: 47 yrs Sex: Male : 1975 Arrival Date: 10/23/2022 Time: 17:22 Bed 8 Private MD: ED Physician Norbert Gates HPI: 10/23 17:50 This 47 yrs old Male presents to ER via Ambulatory with complaints of Dizziness, HIGH cp PULSE RATE. 17:50 The patient presents with lightheadedness. cp 17:50 Onset: The symptoms/episode began/occurred 3 day(s) ago. Associated signs and symptoms: cp Pertinent positives: palpitations, congestion, headache, chest pain, Pertinent negatives: abdominal pain, combativeness, diaphoresis, focal weakness, head injury, numbness, syncope. Severity of symptoms: in the emergency department the symptoms are unchanged despite home interventions. Patient's baseline: Neuro: alert and fully oriented, Motor: no deficits, Ambulation: walks without assistance, Speech: normal. Historical: - Allergies: 17:31 No Known Allergies; hb - Home Meds: 17:31 Diovan Oral once daily [Active]; levothyroxine oral [Active]; Nexium Oral [Active]; hb Ozempic subcutaneous [Active]; Metoprolol Tartrate Oral [Active]; - PMHx: 17:31 DVT; GERD; Hypertensive disorder; Thyroid problem; hb - Immunization history:: Adult Immunizations up to date. - Social history:: Smoking status: Patient denies any tobacco usage or history of. ROS: 17:55 Constitutional: Negative for fever. cp 17:55 Eyes: Negative for injury, pain, redness, and discharge. cp 17:55 ENT: Negative for drainage from ear(s), ear pain, sore throat, difficulty swallowing, cp difficulty handling secretions. 17:55 Cardiovascular: Positive for chest pain, palpitations, Negative for edema. 17:55 Respiratory: Negative for cough, shortness of breath, wheezing. 17:55 Abdomen/GI: Negative for abdominal pain, vomiting, diarrhea, constipation. 17:55 Neuro: Positive for dizziness, headache, Negative for numbness, syncope, near syncope, weakness. 17:55 All other systems are negative. Exam: 18:00 Constitutional: The patient appears in no acute distress, alert, awake, cp non-diaphoretic, non-toxic, well developed, well nourished. 18:00 Head/Face: Normocephalic, atraumatic. cp 18:00 Eyes: Periorbital structures: appear normal, Pupils: equal, round, and reactive to light and accomodation, Extraocular movements: intact throughout, Conjunctiva: normal, no exudate, no injection, Sclera: no appreciated abnormality, Lids and lashes: appear normal, bilaterally. 18:00 ENT: External ear(s): are unremarkable, Ear canal(s): are normal, clear, TM's: dullness, bilaterally, Nose: is normal, Mouth: Lips: moist, Oral mucosa: pink and intact, moist, Posterior pharynx: is normal, airway is patent, no erythema, no exudate. 18:00 Neck: ROM/movement: is normal, is supple, without pain, no range of motions limitations, no meningismus, no nuchal rigidity. 18:00 Chest/axilla: Inspection: normal. 18:00 Cardiovascular: Rate: tachycardic, Rhythm: regular, Edema: is not appreciated, JVD: is not appreciated. 18:00 Respiratory: the patient does not display signs of respiratory distress, Respirations: normal, no use of accessory muscles, no retractions, labored breathing, is not present, Breath sounds: are clear throughout, no decreased breath sounds, rhonchi, no wheezing. 18:00 Abdomen/GI: Inspection: abdomen appears normal, Palpation: abdomen is soft and non-tender, in all quadrants. 18:00 Back: pain, is absent, ROM is normal. 18:00 Skin: cellulitis, is not appreciated, no rash present. 18:00 Neuro: Orientation: to person, place \T\ time. Mentation: is normal, Cerebellar function: is grossly normal, Motor: moves all fours, strength is normal, Sensation: is normal, Gait: is steady, at a normal pace, without difficulty. 18:17 ECG was reviewed by the Attending Physician. cp Vital Signs: 17:28 BP 146 / 93; Pulse 106; Resp 18; Temp 98.5(O); Pulse Ox 100% on R/A; Weight 131.54 kg; hb Height 6 ft. 3 in. ; Pain 0/10; 18:31 BP 135 / 98; Pulse 95; Resp 18; Pulse Ox 97% on R/A; ld1 19:15 BP 126 / 92; Pulse 90; Resp 18; Pulse Ox 98% on R/A; Pain 4/10; pf1 17:28 Body Mass Index 36.25 (131.54 kg, 190.5 cm) hb 17:28 Pain Scale: Adult hb 19:15 Pain Scale: Adult pf1 MDM: 17:35 Patient medically screened. cp 18:00 Differential diagnosis: CVA, generalized weakness, GI bleed, head injury, hypovolemia, cp idiopathic dizziness, sepsis, TIA. 19:50 Data reviewed: vital signs, nurses notes, lab test result(s), EKG, radiologic studies, cp CT scan, plain films. 19:50 Consideration of Admission/Observation Escalation of care including cp admission/observation considered. I considered the following discharge prescriptions or medication management in the emergency department Medications were administered in the Emergency Department. See MAR. Care significantly affected by the following chronic conditions: Hypertension. Counseling: I had a detailed discussion with the patient and/or guardian regarding: the historical points, exam findings, and any diagnostic results supporting the discharge/admit diagnosis, lab results, radiology results, the need for outpatient follow up, a family practitioner, to return to the emergency department if symptoms worsen or persist or if there are any questions or concerns that arise at home. Response to treatment: the patient's symptoms have mildly improved after treatment, and as a result, I will discharge patient. 10/23 17:44 Order name: Basic Metabolic Panel; Complete Time: 18:58 cp 10/23 18:58 Interpretation: Normal except: K 3.4; GLUC 139; GFR 72. cp 10/23 17:44 Order name: CBC with Diff; Complete Time: 18:58 cp 10/23 18:58 Interpretation: Normal except: MPV 7.2. cp 10/23 17:44 Order name: D-Dimer; Complete Time: 18:58 cp 10/23 19:25 Interpretation: D-DIMER 265; Reviewed. 10/23 17:44 Order name: LFT's; Complete Time: 18:58 cp 10/23 19:25 Interpretation: Normal except: AST 11; GLOB 3.6. cp 10/23 17:44 Order name: Magnesium; Complete Time: 18:58 cp 10/23 17:44 Order name: NT PRO-BNP; Complete Time: 18:58 cp 05/14 17:44 Order name: PT-INR; Complete Time: 18:58 cp 05/14 17:44 Order name: Troponin HS; Complete Time: 18:58 cp /14 19:25 Interpretation: Reviewed. cp 05/14 17:44 Order name: Urinalysis W/Microscopic; Complete Time: 18:58 cp 05/14 18:59 Interpretation: Normal except: UPROT TRACE; UUROB 1+. cp /14 18:18 Order name: TSH; Complete Time: 18:58 cp 05/14 18:18 Order name: UDS; Complete Time: 18:58 cp 05/14 17:44 Order name: XRAY Chest (1 view); Complete Time: 18:58 cp 05/14 18:18 Order name: CT Head Brain wo Cont; Complete Time: 18:58 cp /14 18:59 Interpretation: Report reviewed. cp 05/14 17:44 Order name: EKG; Complete Time: 17:44 cp 14 17:44 Order name: Cardiac monitoring; Complete Time: 18:03 cp / 17:44 Order name: EKG - Nurse/Tech; Complete Time: 18:03 cp /14 17:44 Order name: IV Saline Lock; Complete Time: 18:03 cp /14 17:44 Order name: Labs collected and sent; Complete Time: 18:03 cp /14 17:44 Order name: O2 Per Protocol; Complete Time: 18:03 cp /14 17:44 Order name: O2 Sat Monitoring; Complete Time: 18:03 cp EC:17 Rate is 91 beats/min. Rhythm is regular. OR interval is normal. QRS interval is normal. cp QT interval is normal. T waves are Inverted in lead aVR. Interpreted by me. Reviewed by me. Administered Medications: 18:31 Drug: NS 0.9% IV 1000 ml Route: IV; Rate: 1 bolus; Site: right antecubital; ld1 19:13 Follow up: Response: No adverse reaction; Marked relief of symptoms pf1 20:00 Follow up: Response: No adverse reaction; Marked relief of symptoms; IV Status: pf1 Completed infusion; IV Intake: 1000ml 19:10 Drug: Meclizine PO 25 mg Route: PO; pf1 20:00 Follow up: Response: No adverse reaction; Marked relief of symptoms pf1 19:10 Drug: Potassium PO Effervescent Tablet 25 mEq Route: PO; pf1 20:00 Follow up: Response: No adverse reaction; Marked relief of symptoms pf1 Disposition Summary: 10/23/22 19:50 Discharge Ordered Location: Home cp Problem: new cp Symptoms: have improved cp Condition: Stable cp Diagnosis - Dizziness and giddiness cp - Palpitations cp - Headache cp Followup: cp - With: Private Physician - When: 2 - 3 days - Reason: Recheck today's complaints Discharge Instructions: - Discharge Summary Sheet cp - Dizziness cp - General Headache Without Cause cp - Palpitations cp - Aspirin and Your Heart cp - Ambulatory Cardiac Monitoring cp Forms: - Medication Reconciliation Form cp - Thank You Letter cp - Antibiotic Education cp - Prescription Opioid Use cp Prescriptions: - Meclizine 25 mg Oral Tablet - take 1 tablet by ORAL route every 8 hours As needed; 30 tablet; Refills: 0, cp Product Selection Permitted - Naprosyn 500 mg Oral Tablet - take 1 tablet by ORAL route 2 times per day take with food; 20 tablet; Refills: cp 0, Product Selection Permitted Signatures: Dispatcher [employer] [facility] PA PA cp Renata Boogie RN RN Brenda Blair RN RN ld1 Eloisa Fatima RN RN pf1
[2022-10-23 20:33] VITALS: TEMP 98.5
[2022-10-23 20:46] VITALS: BP 126/92; O2SAT 98
--- NOTE | 2022-10-24 11:44 | EKG ---
Test Date: 2022-10-23 Test Time: 18:09:26 Respiratory Technician: Adi SERRANO MEASUREMENT RESULTS: Intervals: Rate: 91 ME: 138 QRSD: 92 QT: 362 QTc: 445 [place]: P: 54 ME: 138 QRS: -16 T: 59 INTERPRETIVE STATEMENTS: Normal sinus rhythm Normal ECG Compared to ECG 01/24/2022 12:30:57 No significant changes Electronically Signed On 10-24-22 11:41:33 CDT by Mathew Alvarez
== END 2022-10-23 20:17 | disposition home or self-care (01) ==
LOC: ER 17:22
DX: R42 Dizziness and giddiness (principal); R00.2 Palpitations; R51.9 Headache, unspecified; I10 Essential (primary) hypertension; I47.1 Supraventricular tachycardia; E07.9 Disorder of thyroid, unspecified
CPT/HCPCS: 93005; 85025; 81001; 80048; 36415; 83735; 85610; 85379; 80076; 84443; 84484; 83880; 80307; 70450; 71045; 96360; 99285; J8597; J7030

== ENCOUNTER 2024-09-23 06:39 | Inpatient (IN) | payer BC ==
[2024-09-19 10:03] LABS: PT Prothrombin Time 17.9 SECONDS (10-13.0); PTT, Activated Partial Thromb 36.1 SECONDS (27.2-37.4); Protime INR 1.61
[2024-09-23] MEDS: NA CHLORIDE 0.9% 1,000 ML ONE ×2 (07:15→10:02)
[2024-09-23 07:38] LABS: PT Prothrombin Time 11.9 SECONDS (10-13.0); PTT, Activated Partial Thromb 26.9 SECONDS (27.2-37.4); Protime INR 1.05
[2024-09-23] MEDS ORDERED: NEOSTIGMINE 1 MG/ML -10 ML VIAL ONE (07:59)
[2024-09-23] MEDS ORDERED: ROCURONIUM 50 MG/5 ML VIAL IV ONE ×2 (07:59→09:16)
[2024-09-23] MEDS ORDERED: LIDOCAINE 2% MPF 5 ML VIAL ONE (07:59)
[2024-09-23] MEDS ORDERED: ONDANSETRON 4 MG/2 ML VIAL ONE (07:59)
[2024-09-23] MEDS ORDERED: GLYCOPYRROLATE 0.2 MG/ML SYR ONE (07:59)
[2024-09-23] MEDS ORDERED: propofoL 200 MG/20 ML VIAL IV ONE (08:00)
[2024-09-23] MEDS ORDERED: FENTANYL CITR 100 MCG/2 ML ONE ×2 (08:00→09:16)
[2024-09-23] MEDS ORDERED: MIDAZOLAM HCL 2 MG/2 ML INJ ONE ×2 (08:00→10:52)
[2024-09-23] MEDS: CEFAZOLIN SODIUM 2 GM/VIAL ONE (08:11)
[2024-09-23] MEDS: SUCCINYLCHOLINE 20 MG/ML (10 ML) IV ONE (08:15)
[2024-09-23] MEDS ORDERED: EPHEDRINE SULF 50 MG/ML VIAL ONE (08:59)
[2024-09-23] MEDS: SUGAMMADEX SODIUM 200 MG/2 ML VIAL IV ONE (10:26)
--- NOTE | 2024-09-23 10:44 | P.OP ---
Date of Service: 09/23/24 Preop diagnosis: Umbilical hernia and bilateral inguinal hernia Postop diagnosis: Same Procedure performed: Repair of umbilical hernia and bilateral inguinal hernia Surgeon: Home Brewer MD Zyglo Inspector: None Estimated blood loss: Minimal Specimen: Hernia sac x 3 Findings: As above Anesthesia: General Complications: None Drains: None Fluids and blood products: Nonapplicable Disposition: Recovery room Operative note: Patient brought to the OR and placed in supine position. General anesthesia began. Patient prepped and draped in the usual sterile fashion. Marcaine 0.5% locally. 15 blade used to make a 3 cm supraumbilical midline incision. Subcu tissue divided. Bleeding controlled with cautery. Hernia sac and contents identified. Dissection proceeded down to the healthy fascial edges. Hernia sac and contents excised sent to pathology as specimen. Hernia sac had preperitoneal fat. Approximately a 3 cm defect remained. Ventralex large mesh placed and a primary closure of the fascia done with #1 PDS. Entire coverage of the hernias sac accomplished with the mesh and the primary repair. Separate wound irrigated and bleeding controlled cautery. 3-0 chromic used approximate subcutaneous tissue and close skin. Sterile dressing applied. 4 cm oblique incision made in the right inguinal region between the right pubic tubercle and the anterior iliac superior spine. Subcutaneous tissue divided and bleeding controlled cautery. Krystina's fascia identified and divided. Aponeurosis of the external abdominal oblique identified and mobilized inferiorly to expose shelving edge. Aponeurosis opened to the external ring. Ilioinguinal nerve identified. Retracted out of the field of dissection. Cord mobilized and skeletonized. A large inguinal lipoma identified and excised. Base of it tied off with 2-0 chromic. Specimen sent to pathology. A direct defect remained. Marlex mesh plug placed and secured with absorbable stapler. Onlay mesh placed and secured medially to the pubic tubercle, inferior to the shelving edge, superior to the conjoined tendon and laterally to each other. Complete coverage of the hernia defect and internal ring accomplished. Cord structures and ilioinguinal nerve placed back in anatomic location. The aponeurosis was attenuated therefore it was not closed. 0 chromic used to approximate subcutaneous tissue. And jaelyn used to close skin. Exact same operation occurred on the left inguinal region. The same repair was accomplished. After both sides were completed, sterile dressing was applied. Patient was awakened and taken to recovery room in good general condition. Please note that hernia on the left side was larger and an extra plug was used to cover the entire defect. CC:
[2024-09-23] MEDS ORDERED: Mastisol Adhesive Liq ONE (10:45)
[2024-09-23] MEDS ORDERED: MORPHINE 10 MG/ML VIAL ONE (10:55)
[2024-09-23] MEDS: HYDROMORPHONE HCL 1 MG/ML INJ ONE ×2 (11:17→12:53)
[2024-09-23] MEDS ORDERED: HYDROCODONE/APAP 7.5/325 MG TAB PO PRN (13:19)
[2024-09-23] MEDS: HYDROCODONE/APAP 7.5/325 MG TAB PO PRN (13:23)
[2024-09-23] MEDS ORDERED: D10W 125 ML IV PRN (15:20)
[2024-09-23] MEDS ORDERED: GLUCAGON 1 MG/VIAL IM PRN (15:20)
--- NOTE | 2024-09-23 16:21 | PN ---
Date of Progress Note: 09/23/2024 The patient postoperatively is complaining of pain in the left groin, requiring parenteral pain manag ement. Therefore, patient will be admitted overnight for pain management. He is otherwise doing wel l, tolerating liquids, has small amount of urine. We will admit him for pain management and resume h is home meds and diet. /MODL Voice ID: [id number] Report ID: [id number]
[2024-09-23] MEDS: INSULIN REGULAR (HUMAN) 100 UNIT/ML SQ SCH (16:30)
[2024-09-23] MEDS: HYDROMORPHONE HCL 1 MG/ML INJ IV PRN (16:38)
[2024-09-23 17:11] VITALS: BMI 37.5
--- NOTE | 2024-09-24 12:11 | PN ---
Date of Progress Note: 09/24/2024 Subjective: The patient is awake, alert. He is comfortable when he is walking and when he is lying in bed, however, when he tries to get in and out of bed, he does have an excruciating pain. It is be tter than it was yesterday. He is tolerating his diet and no other complaint. Objective: Vital Signs: Stable. His heart rate is 99. Abdomen: Soft, nondistended, nontender. Genitourinary: There is swelling in the groin and scrotum, but there is no evidence of hernia presen t. Assessment: Status post repair of umbilical and bilateral inguinal hernia. Recommendations: We will continue pain management and re-evaluate the patient later today for possib le discharge. Encouraged ambulation, incentive spirometry. /MODL Voice ID: [id number] Report ID: [id number]
[2024-09-25] MEDS: ONDANSETRON 4 MG/2 ML VIAL IV PRN (00:32)
[2024-09-25 08:18] LABS: Absolute Eosinophils 0.2 K/uL (0-0.5); Absolute Lymphocytes (CBC) 0.9 K/uL (0.7-4.9); Absolute Monocytes 0.6 K/uL (0.1-1.3); Basophils % 0.3 % (0-1.3); Eosinophils % 2.2 % (0-4.4); Hemoglobin 14.7 g/dL (13.6-17.9); Lymphocytes % 8.4 % (15.3-44.8); MCH 28.7 pg (27.0-35.0); MCHC 33.5 g/dL (32.0-36.0); MCV 85.9 fL (80-100); MPV 7.6 fL (7.6-11.3); Monocytes % 5.5 % (3.3-12.3); Neutrophils % 83.6 % (41.7-73.7); Nucleated Red Blood Cells % 0.1 % (0-0); Platelets 238 thou/uL (152-406); RBC Red Blood Cell Count 5.12 M/uL (4.33-5.43); Red Cell Distribution Width 13.5 % (12.1-15.2)
[2024-09-25 08:35] LABS: Anion Gap 8.9 mEq/L (5.0-15.0); Magnesium 2.4 mg/dL (1.6-2.4); Potassium 3.9 mEq/L (3.5-5.1)
[2024-09-25] MEDS ORDERED: LIDOCAINE 2% MPF 5 ML VIAL ONE (10:58)
[2024-09-25] MEDS ORDERED: propofoL 200 MG/20 ML VIAL IV ONE (10:58)
[2024-09-25] MEDS ORDERED: ONDANSETRON 4 MG/2 ML VIAL ONE (10:58)
[2024-09-25] MEDS ORDERED: GLYCOPYRROLATE 0.2 MG/ML SYR ONE (10:58)
[2024-09-25] MEDS ORDERED: FENTANYL CITR 100 MCG/2 ML ONE ×2 (10:58→12:09)
[2024-09-25] MEDS ORDERED: NEOSTIGMINE 1 MG/ML -10 ML VIAL ONE (10:58)
[2024-09-25] MEDS ORDERED: ROCURONIUM 50 MG/5 ML VIAL IV ONE ×2 (10:58→12:34)
[2024-09-25] MEDS ORDERED: MIDAZOLAM HCL 2 MG/2 ML INJ ONE (10:59)
--- NOTE | 2024-09-25 11:04 | RAD REPORT ---
EXAMINATION: CT Abdomen Pelvis W Contrast CLINICAL INDICATION: Male, 49 years old. continuing ABD pain TECHNIQUE: CT abdomen and pelvis was performed, after the administration of IV contrast, as per depar tment protocol. Axial, sagittal and coronal reconstructions were obtained. One or more of the following dose reduction techniques were used: Automated exposure control, adjustment of the mA and k V according to patient size, and iterative reconstruction. Unless otherwise specified, incidental findings do not require dedicated imaging follow-up. COMPARISON: No prior exam. FINDINGS: LOWER CHEST: Bibasilar subsegmental atelectatic changes LIVER: Normal in size and contour. No focal lesion. BILIARY SYSTEM: Status post cholecystectomy. SPLEEN: Normal size. No focal lesion. PANCREAS: No mass, ductal dilation, or ole-pancreatic fluid. ADRENALS: Normal; no mass. KIDNEYS: Normal size and contour. No hydronephrosis. Exophytic right interpolar polar to lower pole 3 .1 cm fluid density cyst. URINARY BLADDER: Unremarkable. GASTROINTESTINAL TRACT: No evidence of free air, significant intra-abdominal free fluid, bowel obstru ction or abscess. APPENDIX: Normal appendix. LYMPH NODES: No lymphadenopathy. MUSCULOSKELETAL: No acute or suspicious osseous abnormality. ADDITIONAL FINDINGS: Sequelae of recent bilateral inguinal hernia, and umbilical hernia repair, with residual locules of gas and fat stranding in the surgical barr. Recurrent left large inguinal hernia reaching the scrotum, with sac measuring 7.9 x 7.4 x 20.5 cm in greatest AP, transverse, and C C dimensions. Recurrent small right inguinal hernia not reaching the scrotum, with sac measuring 4.2 x 4.3 cm in greatest axial dimensions. No evidence of a measurable recurrent herniation component along the umbilical hernia repair site. IMPRESSION: Bilateral inguinal hernias containing fat larger on the left, as detailed above.
[2024-09-25] MEDS: SUGAMMADEX SODIUM 200 MG/2 ML VIAL IV ONE (11:11)
[2024-09-25] MEDS: SUCCINYLCHOLINE 20 MG/ML (10 ML) IV ONE (11:11)
[2024-09-25] MEDS: NA CHLORIDE 0.9% 1,000 ML ONE ×2 (11:42→13:00)
[2024-09-25] MEDS: CEFAZOLIN SODIUM 2 GM/VIAL ONE (11:45)
[2024-09-25] MEDS ORDERED: Phenylephrine HCl 10 MG/ML 1 ML VIAL ONE (12:01)
[2024-09-25] MEDS: BUPIVACAINE 0.5% PF 10 ML VIAL ONE (12:10)
[2024-09-25] MEDS ORDERED: Mastisol Adhesive Liq ONE (13:17)
--- NOTE | 2024-09-25 13:43 | P.OP ---
Date of Service: 09/25/24 Preop diagnosis: Left inguinal pain, recurrent left inguinal hernia Postop diagnosis: Same Procedure performed: Diagnostic laparoscopy, repair of recurrent left inguinal hernia Surgeon: Home Brewer MD Student Teaching Coordinator: Thuy SAEED Estimated blood loss: Minimal Specimen: Preperitoneal fat Findings: As above Anesthesia: General Complications: None Drains: None Fluids and blood products: Nonapplicable Disposition: Recovery room Brief history: Patient underwent a bilateral inguinal hernia repair and an umbilical hernia repair 2 days ago. Patient postoperatively had significant pain in the left lower abdomen and groin. Patient was admitted for parenteral pain management. Patient's pain improved but persisted. Today patient was still having pain and a fullness in the left groin. CT of the abdomen pelvis revealed a large amount of fat in the left groin. There was no intraperitoneal component noted regarding the hernia. Therefore, informed consent was obtained for diagnostic laparoscopy and possible open procedure, with the plan to repair the recurrent left inguinal hernia. Patient and understood risk, benefits and alternatives and agreed to procedure. Operative note: Patient brought to the OR and placed in supine position. General anesthesia began. Patient prepped and draped in the usual sterile fashion. Marcaine 0.5% locally. A 1 cm incision made in the left upper quadrant. Subcutaneous tissue divided and bleeding controlled cautery. Fascia identified and divided. #1 Vicryl stay suture placed. Peritoneal cavity entered with sharp and blunt dissection. 12 mm trocar placed into the peritoneal cavity under direct vision. Pneumoperitoneum established. 5 mm trocar placed in the left lower quadrant under direct vision. Laparoscopy revealed complete coverage of the umbilical hernia. One end of the mesh was slightly loose. Sorber tack was used to secure that easily. There was no intraperitoneal component of an inguinal hernia identified in the left lower quadrant or the right lower quadrant. To rule out the bladder being part of a mass that was in the left groin, the bladder was filled with 1 L of saline with no increase in the left groin. The bladder was full in its normal anatomic location. Patient had a Vuong in place. The left groin wound was open. The me sh placed in the first surgery was removed. The fat was reduced was still present in the left groin and consistent with preperitoneal fat. The cord structures had already been identified and retracted out of the field of dissection LigaSure was used to excise this large preperitoneal fat which was approximately 2 to 3 pounds in weight. After removal of this preperitoneal fat, a large internal ring was present and the inguinal floor was slightly attenuated. Marlex mesh plug x 2 was placed in the internal ring and secured with absorbable tacker. Onlay mesh was placed on the inguinal floor from both directions and secured in the standard fashion with absorbable tacker. Complete coverage of the inguinal floor and the internal ring was accomplished. Cord structures and ilioinguinal nerve were placed back in anatomic location. 3-0 chromic was used to reapproximate subcutaneous tissue as well as Krystina's fascia. Isela used to close skin. Sterile dressing applied. Stay sutures were tied to each other to reapproximate the fascial defect at the left upper quadrant incision. 3-0 chromic used to approximate subcutaneous tissue. And isela used to close skin. Sterile dressing applied and patient awakened. Patient taken to recovery room in good general condition.
[2024-09-25] MEDS: HYDROMORPHONE HCL 1 MG/ML INJ ONE (14:00)
[2024-09-25] MEDS: Ringers Lactate 1,000 ML IV SCH (14:05)
[2024-09-25] MEDS: FENTANYL CITR 100 MCG/2 ML ONE (14:12)
[2024-09-25] MEDS: CEFAZOLIN 1 GM in NA CHLORIDE 0.9% 50 ML IVPB SCH (16:41)
[2024-09-25] MEDS: HYDROMORPHONE HCL 1 MG/ML INJ IV PRN (20:31)
[2024-09-26 04:38] LABS: Absolute Eosinophils 0.2 K/uL (0-0.5); Absolute Lymphocytes (CBC) 1.3 K/uL (0.7-4.9); Absolute Monocytes 0.7 K/uL (0.1-1.3); Absolute Neutrophil 8.7 K/uL (1.8-8.0); Basophils % 0.2 % (0-1.3); Eosinophils % 1.9 % (0-4.4); Hematocrit 40.8 % (39.6-49.0); Hemoglobin 13.9 g/dL (13.6-17.9); Lymphocytes % 11.7 % (15.3-44.8); MCH 28.8 pg (27.0-35.0); MCV 84.6 fL (80-100); MPV 7.4 fL (7.6-11.3); Monocytes % 6.8 % (3.3-12.3); Neutrophils % 79.4 % (41.7-73.7); Nucleated Red Blood Cells % 0.1 % (0-0); Platelets 231 thou/uL (152-406); RBC Red Blood Cell Count 4.82 M/uL (4.33-5.43); Red Cell Distribution Width 13.1 % (12.1-15.2)
--- NOTE | 2024-09-26 10:48 | PN ---
Date of Progress Note: 09/26/2024 Subjective: The patient is awake, alert, no new complaint. The patient's left groin pain is better. He is able to get out of bed and go to the bathroom without much difficulty. However, he is still having some incisional pain in the left upper quadrant as well as the right groin and requiring IV pa renteral pain management. His vitals are stable. He is afebrile. Laboratory data reviewed and his white count is 11. H and H stable. His abdomen is soft, nondistended. Positive bowel sounds. Dres sing is clean, dry, intact. He does have some incisional tenderness. Assessment: Status post bilateral inguinal hernia repair, left inguinal hernia repair, and diagnosti c laparoscopy and umbilical hernia repair. Recommendations: We will encourage the patient to ambulate today, incentive spirometry. We will try to taper the patient from IV pain medicine to oral pain medicine. We will re-evaluate the patient t his afternoon. If he is able to tolerate the pain, we can discharge him later today. If not, tomorr ow morning. Plan of care discussed in detail with the patient and family. /MODL Voice ID: [id number] Report ID: [id number]
[2024-09-26] MEDS: CEFAZOLIN SODIUM 1 GM/VIAL ONE (23:37)
--- NOTE | 2024-09-27 09:23 | DS ---
Date of Discharge: 09/27/2024 Admitting Diagnoses: Umbilical and bilateral inguinal hernia. Discharge Diagnoses: Umbilical and bilateral inguinal hernia. Hospital Course: The patient is a 49-year-old gentleman underwent repair of his bilateral inguinal h ernia and umbilical hernia repair. Postoperatively, he had significant pain. He was admitted for pa in control. Pain did not improve. There was a palpable mass in the left groin. His CT of the abdom en and pelvis was done, which showed what was thought to be incarcerated omentum was not, it was an i lioinguinal large preperitoneal fat. The patient was taken back to surgery and this mass was excised . Post second surgery, patient's pain improved and the patient is doing well now. He is tolerating diet ambulating, pain controlled with p.o. pain medication, afebrile, therefore patient will be disch arged to home. Disposition: Home. Condition: Stable. Discharge Instructions: Resume home medications and diet. Activity as tolerated. No heavy lifting. Follow up in my office in 1 week. Call for appointment. Detailed discharge instructions were give n to patient. /MODL Voice ID: [id number] Report ID: [id number]
[2024-09-27 09:27] VITALS: BP 126/77; TEMP 98.3
[2024-09-27 09:38] VITALS: O2SAT 94
== END 2024-09-27 09:30 | disposition home or self-care (01) | DRG 352 ==
LOC: OR 06:39 → 2ND 13:15 → OBSVTOIN 09-24 14:26
PROVIDERS: ADMIT Surgery; ATTEND Surgery
PROC: 0YU50JZ Supplement Right Inguinal Region with Synthetic Substitute, Open Approach (ICD-10-PCS; principal; 2024-09-23 08:30)
PROC: 0WUF0JZ Supplement Abdominal Wall with Synthetic Substitute, Open Approach (ICD-10-PCS; 2024-09-23 08:30)
PROC: 0YU64JZ Supplement Left Inguinal Region with Synthetic Substitute, Percutaneous Endoscopic Approach (ICD-10-PCS; 2024-09-25)
DX: K40.20 Bilateral inguinal hernia, without obstruction or gangrene, not specified as recurrent (principal); K42.9 Umbilical hernia without obstruction or gangrene
CPT/HCPCS: 36415; 74177; 80048; 82947; 83735; 84100; 85025; 85610; 85730; 88302; 94010; G0378; G0379; J0690; J1171; J1815; J2003; J2250; J2371; J2405; J2704; J2710; J3010; J7030; J7120; L0625; Q9967